=== PATIENT | male | born 1930 | race Caucasian/White ===

== ENCOUNTER → 2016-09-15 | Outpatient (CLI) | payer MEDICARE ==
[2016-09-15 11:56] LABS: Anion Gap 10 mmol/L; Blood Urea Nitrogen 18 mg/dL (9-20); Calcium 9.3 mg/dL (8.4-10.2); Carbon Dioxide 25 mmol/L (22-30); Chloride 107 mmol/L (98-107); Glucose 91 mg/dL (74-99); Non-African American GFR(MDRD) >60 (>60 ml/min/1.73 sqM); Potassium 4.5 mmol/L (3.5-5.1); Sodium 142 mmol/L (137-145)
== END | disposition home or self-care (01) ==
LOC: LABWHC1 11:11
PROVIDERS: ATTEND Internal Medicine Cardiovascular Disease
DX: I10 Essential (primary) hypertension (principal)
CPT/HCPCS: 36415; 80048

== ENCOUNTER → 2016-12-15 | Outpatient (CLI) | payer MEDICARE ==
--- NOTE | 2016-12-15 17:20 | US ---
EXAMINATION TYPE: US carotid duplex BILAT DATE OF EXAM: 12/15/2016 COMPARISON: US CLINICAL HISTORY: I77.1 Stenosis. Stenosis, pt has no complaints at this time EXAM MEASUREMENTS: RIGHT: Peak Systolic Velocity (PSV) cm/sec ----- Right CCA: 95.2 ----- Right ICA: 117.3 ----- Right ECA: 113.4 ICA/CCA ratio: 1.2 RIGHT: End Diastole cm/sec ----- Right CCA: 20.4 ----- Right ICA: 20.2 ----- Right ECA: 11.1 LEFT: Peak Systolic Velocity (PSV) cm/sec ----- Left CCA: 118.5 ----- Left ICA: 114.7 ----- Left ECA: 105.6 ICA/CCA ratio: 1.0 LEFT: End Diastole cm/sec ----- Left CCA: 20.6 ----- Left ICA: 31.8 ----- Left ECA: 12.4 VERTEBRALS (direction of flow): Right Vertebral: Antegrade Left Vertebral: Antegrade No significant stenosis seen IMPRESSION: I DO NOT SEE EVIDENCE OF A HEMODYNAMICALLY SIGNIFICANT STENOSIS IN EITHER CAROTID SYSTEM. Criteria for Assigning % of Stenosis / Diameter reduction (Estimation based on the indirect measurements of the internal carotid artery velocities (ICA PSV). 1. Normal (no stenosis)=ICA PSV < 125 cm/s: ratio < 2.0: ICA EDV<40 cm/s. 2. Less than 50% stenosis=ICA PSV < 125 cm/s: ratio < 2.0: ICA EDV<40 cm/s. 3. 50 to 69% stenosis=ICA PSV of 125 to 230 cm/s: ration 2.0 ? 4.0: ICA EDV 40-100 cm/s. 4. Greater than 70% stenosis to near occlusion= ICA PSV > 230 cm/s: ratio > 4.0: ICA EDV > 100 cm/s. 5. Near occlusion= ICA PSV velocities may be low or undetectable: variable ratio and ICA EDV. 6. Total occlusion=unable to detect flow.
== END | disposition home or self-care (01) ==
LOC: RADUSWWP 16:47
PROVIDERS: ATTEND Family Medicine
DX: I77.1 Stricture of artery (principal)
CPT/HCPCS: 93880

== ENCOUNTER 2017-02-24 21:54 | Emergency (ER) | payer MEDICARE ==
[2017-02-24 22:43] LABS: Basophils % (A) 0 %; CH 30.7; CHCM 34.4; Eosinophils # (A) 0.1 k/uL (0-0.7); Eosinophils % (A) 1 %; HDW 2.83; HGB 8.8 gm/dL (13.0-17.5); Luc # (Auto) 0.34; Luc % (Auto) 3; Lymphocytes % (A) 9 %; MCH 29.2 pg (25.0-35.0); MCHC 32.6 g/dL (31.0-37.0); MCV 89.6 fL (80.0-100.0); Mean Platelet Volume 8.9; Monocytes # (A) 0.8 k/uL (0-1.0); Monocytes % (A) 7 %; Neutrophils % (A) 81 %; RBC 3.01 m/uL (4.30-5.90); RDW 14.5 % (11.5-15.5); WBC 11.2 k/uL (3.8-10.6); WBC (Perox) 11.08
[2017-02-24 22:52] LABS: INR 1.5 (<1.2); Prothrombin Time 14.7 sec (9.0-12.0)
[2017-02-24 23:02] LABS: Creatine Kinase 34 U/L (55-170)
[2017-02-24 23:05] LABS: ALT 29 U/L (21-72); AST 18 U/L (17-59); Alkaline Phosphatase 73 U/L (38-126); Anion Gap 10 mmol/L; Blood Urea Nitrogen 26 mg/dL (9-20); Calcium 8.4 mg/dL (8.4-10.2); Carbon Dioxide 23 mmol/L (22-30); Chloride 99 mmol/L (98-107); Glucose 106 mg/dL (74-99); Magnesium 2.3 mg/dL (1.6-2.3); Non-African American GFR(MDRD) 52 (>60 ml/min/1.73 sqM); Potassium 4.3 mmol/L (3.5-5.1); Sodium 132 mmol/L (137-145); Total Bilirubin 0.6 mg/dL (0.2-1.3); Total Protein 5.9 g/dL (6.3-8.2)
[2017-02-24] MEDS ORDERED: SODIUM CHLORIDE 0.9% 500 ML IV STA (23:09)
[2017-02-24] MEDS ORDERED: ONDANSETRON 4 MG/2 ML VIAL IVP STA (23:10)
[2017-02-24 23:15] LABS: Creatine Kinase MB 0.3 ng/mL (0.0-2.4); Troponin I <0.012 ng/mL (0.000-0.034)
--- NOTE | 2017-02-25 00:03 | XR ---
EXAM: XR Chest, 1 View CLINICAL HISTORY: Reason: dysrhythmia TECHNIQUE: Frontal view of the chest. COMPARISON: 07/06/2016 FINDINGS: Lungs: No significant interval change. No consolidation. Pleural space: Unremarkable. No pneumothorax. Heart: Unremarkable. No cardiomegaly. Mediastinum: Unremarkable. Bones/joints: Mild degenerative changes. Tubes, lines and devices: Left-sided chest wall pacemaker is again seen stable pacemaker leads. IMPRESSION: No active cardiopulmonary disease. No significant interval change.
[2017-02-25 01:05] VITALS: RESP 16
[2017-02-25 01:10] LABS: Appearance,Urine Clear (Clear); Bilirubin,Urine Negative (Negative); Glucose,Urine (UA) Negative (Negative); Ketones,Urine Trace (Negative); Leukocyte Esterase,Urine Negative (Negative); Nitrite,Urine Negative (Negative); PH, Urine 6.5 (5.0-8.0); Protein,Urine Negative (Negative); Specific Gravity,Urine 1.015 (1.001-1.035); UA Billing (MACRO vs. MICRO) CHEM; Urobilinogen,Urine <2.0 mg/dL (<2.0)
--- NOTE | 2017-02-25 01:48 | ED ---
Arrhythmia/Palpitations HPI - General Chief Complaint: Arrhythmia/Palpitations Stated Complaint: Rapid Heartbeat Time Seen by Provider: 02/24/17 22:07 Source: patient Mode of arrival: wheelchair Limitations: no limitations - Related Data Home Medications Medication Instructions Recorded Confirmed Alfuzosin HCl [Uroxatral] 10 tab PO HS 03/05/14 02/24/17 Digoxin [Lanoxin] 125 mcg PO HS 03/05/14 02/24/17 Carvedilol [Coreg] 3.125 mg PO BID 07/06/16 02/24/17 Isosorbide Mononitrate ER [Imdur] 60 mg PO BID 07/06/16 02/24/17 Levothyroxine Sodium [Synthroid] 88 mcg PO DAILY 07/06/16 02/24/17 Meclizine [Antivert] 12.5 mg PO Q8HR PRN 07/06/16 02/24/17 Meloxicam [Mobic] 7.5 mg PO HS 07/06/16 02/24/17 Rivaroxaban [Xarelto] 15 mg PO HS 07/06/16 02/24/17 Furosemide [Lasix] 10 mg PO DAILY 07/08/16 02/24/17 Ferrous Sulfate [Feosol] 325 mg PO DAILY 02/24/17 02/24/17 Losartan [Cozaar] 25 mg PO DAILY 02/24/17 02/24/17 Nitroglycerin Sl Tabs [Nitrostat] 0.4 mg SUBLINGUAL Q5M PRN 02/24/17 02/24/17 Tiotropium Br/Olodaterol HCl 2 puff INHALATION RT-DAILY 02/24/17 02/24/17 [Stiolto Respimat Inhal [place]] rOPINIRole HCL [Requip] 3 mg PO HS 02/24/17 02/24/17 Allergies Allergy/AdvReac Type Severity Reaction Status Date / Time ranolazine [From Ranexa] Allergy Severe Seizures Verified 02/24/17 22:39 Review of Systems ROS Statement: Those systems with pertinent positive or pertinent negative responses have been documented in the HPI. ROS Other: All systems not noted in ROS Statement are negative. Past Medical History Past Medical History: Atrial Fibrillation, Coronary Artery Disease (CAD), Chest Pain / Angina, Heart Failure, GERD/Reflux, Thyroid Disorder Additional Past Medical History / Comment(s): 10/24/[address] [facility] ER via EMS with c/o difficulty talking and facial droop. He also had generalized shaking. Other HX: Pt had intestinal illness last week, AICD (medtronic placed at [facility] in 2008), cardiomyopathy, gastritis, paraesophageal hiatal hernia ,left knee pain with scheduled injections for pain History of Any Multi-Drug Resistant Organisms: None Reported Past Surgical History: AICD, Orthopedic Surgery, Tonsillectomy Additional Past Surgical History / Comment(s): AICD placed twice both at [facility]- in 1999 and 2008, PTCA November of 1999, hydrocelectomy, EGDs with last one being EGD with Bx along antrum which pt stated was benign, colonoscopy with polypectomy, bilateral cataract removal; left knee sx "shaved cartilage" Past Anesthesia/Blood Transfusion Reactions: No Reported Reaction Type of Cardiac Device: AICD Device Placement Date:: 2008 Past Psychological History: No Psychological Hx Reported Smoking Status: Former smoker Past Alcohol Use History: None Reported Past Drug Use History: None Reported - Past Family History Mother History Unknown: Yes Family Medical History: Blood Disorder, Coronary Artery Disease (CAD) Additional Family Medical History / Comment(s): Von Willebrand Father History Unknown: Yes Family Medical History: Coronary Artery Disease (CAD) Additional Family Medical History / Comment(s): Father was healthy General Exam Limitations: no limitations Course Vital Signs 02/24/17 02/24/17 02/24/17 21:58 22:30 23:36 Temperature 100.4 F H Pulse Rate 67 70 64 Respiratory 18 16 16 Rate Blood Pressure 99/52 105/67 100/55 O2 Sat by Pulse 93 L 93 L 95 Oximetry 02/25/17 02/25/17 00:06 01:02 Temperature Pulse Rate 64 651 H Respiratory 18 16 Rate Blood Pressure 105/59 99/57 O2 Sat by Pulse 96 95 Oximetry Medical Decision Making - Lab Data Result diagrams: 02/24/17 22:30 02/24/17 22:30 Lab Results 02/24/17 02/24/17 02/24/17 Range/Units 22:30 22:30 22:30 WBC 11.2 H (3.8-10.6) k/uL RBC 3.01 L (4.30-5.90) m/uL Hgb 8.8 L (13.0-17.5) gm/dL Hct 27.0 L (39.0-53.0) % MCV 89.6 (80.0-100.0) fL MCH 29.2 (25.0-35.0) pg MCHC 32.6 (31.0-37.0) g/dL RDW 14.5 (11.5-15.5) % Plt Count 199 (150-450) k/uL Neutrophils % 81 % Lymphocytes % 9 % Monocytes % 7 % Eosinophils % 1 % Basophils % 0 % Neutrophils # 9.0 H (1.3-7.7) k/uL Lymphocytes # 1.0 (1.0-4.8) k/uL Monocytes # 0.8 (0-1.0) k/uL Eosinophils # 0.1 (0-0.7) k/uL Basophils # 0.0 (0-0.2) k/uL PT (9.0-12.0) sec INR (<1.2) APTT (22.0-30.0) sec Sodium 132 L (137-145) mmol/L Potassium 4.3 (3.5-5.1) mmol/L Chloride 99 (98-107) mmol/L Carbon Dioxide 23 (22-30) mmol/L Anion Gap 10 mmol/L BUN 26 H (9-20) mg/dL Creatinine 1.30 H (0.66-1.25) mg/dL Est GFR (MDRD) Af Amer >60 (>60 ml/min/1.73 sqM) Est GFR (MDRD) Non-Af 52 (>60 ml/min/1.73 sqM) Glucose 106 H (74-99) mg/dL Calcium 8.4 (8.4-10.2) mg/dL Magnesium 2.3 (1.6-2.3) mg/dL Total Bilirubin 0.6 (0.2-1.3) mg/dL AST 18 (17-59) U/L ALT 29 (21-72) U/L Alkaline Phosphatase 73 (38-126) U/L Total Creatine Kinase 34 L (55-170) U/L CK-MB (CK-2) 0.3 (0.0-2.4) ng/mL CK-MB (CK-2) Rel Index 0.9 Troponin I <0.012 (0.000-0.034) ng/mL Total Protein 5.9 L (6.3-8.2) g/dL Albumin 3.5 (3.5-5.0) g/dL Urine Color Urine Appearance (Clear) Urine pH (5.0-8.0) Ur Specific [place] (1.001-1.035) Urine Protein (Negative) Urine Glucose (UA) (Negative) Urine Ketones (Negative) Urine Blood (Negative) Urine Nitrite (Negative) Urine Bilirubin (Negative) Urine Urobilinogen (<2.0) mg/dL Ur Leukocyte Esterase (Negative) 02/24/17 02/25/17 Range/Units 22:30 00:55 WBC (3.8-10.6) k/uL RBC (4.30-5.90) m/uL Hgb (13.0-17.5) gm/dL Hct (39.0-53.0) % MCV (80.0-100.0) fL MCH (25.0-35.0) pg MCHC (31.0-37.0) g/dL RDW (11.5-15.5) % Plt Count (150-450) k/uL Neutrophils % % Lymphocytes % % Monocytes % % Eosinophils % % Basophils % % Neutrophils # (1.3-7.7) k/uL Lymphocytes # (1.0-4.8) k/uL Monocytes # (0-1.0) k/uL Eosinophils # (0-0.7) k/uL Basophils # (0-0.2) k/uL PT 14.7 H (9.0-12.0) sec INR 1.5 H (<1.2) APTT 38.0 H (22.0-30.0) sec Sodium (137-145) mmol/L Potassium (3.5-5.1) mmol/L Chloride (98-107) mmol/L Carbon Dioxide (22-30) mmol/L Anion Gap mmol/L BUN (9-20) mg/dL Creatinine (0.66-1.25) mg/dL Est GFR (MDRD) Af Amer (>60 ml/min/1.73 sqM) Est GFR (MDRD) Non-Af (>60 ml/min/1.73 sqM) Glucose (74-99) mg/dL Calcium (8.4-10.2) mg/dL Magnesium (1.6-2.3) mg/dL Total Bilirubin (0.2-1.3) mg/dL AST (17-59) U/L ALT (21-72) U/L Alkaline Phosphatase (38-126) U/L Total Creatine Kinase (55-170) U/L CK-MB (CK-2) (0.0-2.4) ng/mL CK-MB (CK-2) Rel Index Troponin I (0.000-0.034) ng/mL Total Protein (6.3-8.2) g/dL Albumin (3.5-5.0) g/dL Urine Color Yellow Urine Appearance Clear (Clear) Urine pH 6.5 (5.0-8.0) Ur Specific [place] 1.015 (1.001-1.035) Urine Protein Negative (Negative) Urine Glucose (UA) Negative (Negative) Urine Ketones Trace H (Negative) Urine Blood Negative (Negative) Urine Nitrite Negative (Negative) Urine Bilirubin Negative (Negative) Urine Urobilinogen <2.0 (<2.0) mg/dL Ur Leukocyte Esterase Negative (Negative) Disposition Clinical Impression: Afib, Dehydration Disposition: HOME SELF-CARE Condition: Fair Instructions: Palpitations (ED), Dehydration (ED) Referrals: Hernán Bansal MD [Primary Care Provider] - 1-2 days
[2017-02-25 02:22] VITALS: BP 119/55; PULSE 62; TEMP 98.6
--- NOTE | 2017-02-27 08:47 | CDI ---
Documentation Clarification OP Dear Dr. Jey Wolff Please do addendum to ED report for missing HPI and Physical examination. Thank you, Adam Benton Phytopathology Teacher If you have any questions, please contact [place] [employer] Member at [phone] He will not let me open the chart MTDD
== END 2017-02-25 02:04 | disposition home or self-care (01) ==
LOC: EC 21:54
DX: I48.91 Unspecified atrial fibrillation (principal); E86.0 Dehydration; I50.9 Heart failure, unspecified; I25.10 Atherosclerotic heart disease of native coronary artery without angina pectoris; E07.9 Disorder of thyroid, unspecified; Z87.891 Personal history of nicotine dependence; Z79.1 Long term (current) use of non-steroidal anti-inflammatories (NSAID); Z79.01 Long term (current) use of anticoagulants; Z79.899 Other long term (current) drug therapy; Z88.8 Allergy status to other drugs, medicaments and biological substances; Z86.79 Personal history of other diseases of the circulatory system; Z82.49 Family history of ischemic heart disease and other diseases of the circulatory system; Z87.39 Personal history of other diseases of the musculoskeletal system and connective tissue; Z95.810 Presence of automatic (implantable) cardiac defibrillator
CPT/HCPCS: 51798; 36415; 93005; 80053; 82550; 82553; 83735; 84484; 85025; 85610; 85730; 81003; 71010; 99285; 96374; 96361; J2405

== ENCOUNTER 2017-03-30 15:24 | Inpatient (IN) | payer MEDICARE ==
[2017-03-30] MEDS ORDERED: MECLIZINE 12.5 MG TAB PO PRN (16:34)
[2017-03-30] MEDS ORDERED: NITROGLYCERIN SL TABS 0.4 MG TAB SUBLINGUAL PRN (16:34)
--- NOTE | 2017-03-30 17:02 | XR ---
EXAMINATION TYPE: XR chest 2V DATE OF EXAM: 03/30/2017 COMPARISON: 02/24/2017 HISTORY: Dysrhythmia. Syncope. TECHNIQUE: Frontal and lateral views of the chest are obtained. FINDINGS: Heart appears enlarged. There is no heart failure. Lungs are clear of infiltrate. There is left axillary pacemaker with the lead tips in the right ventricle. There are chest leads. Bony thora x is intact. IMPRESSION: No active cardiopulmonary disease. No change.
--- NOTE | 2017-03-30 17:17 | CT ---
EXAMINATION TYPE: CT brain wo con DATE OF EXAM: 03/30/2017 COMPARISON: 10/24/2014 HISTORY: Dizziness and syncopal episodes CT DLP: 1029.9 mGycm Automated exposure control for dose reduction was used. FINDINGS: There is some cerebral cortical atrophy. There is no mass effect nor midline shift. There is no sign of intracranial hemorrhage. The calvarium is intact. IMPRESSION: MILD ATROPHY. NO ACUTE INTRACRANIAL ABNORMALITY. NO CHANGE.
[2017-03-30 17:34] LABS: Basophils % (A) 0 %; CH 27.2; CHCM 30.8; Eosinophils # (A) 0.1 k/uL (0-0.7); Eosinophils % (A) 1 %; HDW 4.39; Hypochromasia Marked; Luc # (Auto) 0.28; Luc % (Auto) 3; Lymphocytes # (A) 1.4 k/uL (1.0-4.8); Lymphocytes % (A) 14 %; MCH 27.7 pg (25.0-35.0); MCHC 31.4 g/dL (31.0-37.0); MCV 88.4 fL (80.0-100.0); Mean Platelet Volume 8.4; Monocytes # (A) 0.7 k/uL (0-1.0); Monocytes % (A) 7 %; Neutrophils # (A) 7.6 k/uL (1.3-7.7); Neutrophils % (A) 75 %; Poikilocytosis Moderate; RBC 1.87 m/uL (4.30-5.90); RDW 14.8 % (11.5-15.5); WBC (Perox) 10.37
[2017-03-30 17:42] LABS: Anion Gap 11 mmol/L; Blood Urea Nitrogen 23 mg/dL (9-20); Calcium 8.9 mg/dL (8.4-10.2); Carbon Dioxide 22 mmol/L (22-30); Chloride 104 mmol/L (98-107); Glucose 93 mg/dL (74-99); Non-African American GFR(MDRD) 59 (>60 ml/min/1.73 sqM); Potassium 4.3 mmol/L (3.5-5.1); Sodium 137 mmol/L (137-145)
[2017-03-30 17:43] LABS: HGB 5.2 gm/dL (13.0-17.5)
[2017-03-30 17:44] LABS: HCT 16.5 % (39.0-53.0)
[2017-03-30] MEDS: CARVEDILOL 3.125 MG TAB PO SCH (18:00)
--- NOTE | 2017-03-30 18:59 | CT ---
EXAMINATION TYPE: CT abdomen pelvis wo con DATE OF EXAM: 03/30/2017 COMPARISON: 02/14/2014 HISTORY: Low hemoglobin. CT DLP: 303.7 mGycm Automated exposure control for dose reduction was used. TECHNIQUE: Helical acquisition of images was performed from the lung bases through the pelvis. FINDINGS: Lung bases are clear of consolidation. Heart is enlarged. There is no pleural effusion. There is mild linear density at the lung bases consistent with minimal scarring and atelectasis. There is a hiatal hernia. Liver shows no focal defect. There is no evidence of a splenic mass. There is no sign of pancreatic m ass. Gallbladder somewhat contracted. There is no adrenal mass. Kidneys show no hydronephrosis. There is exophytic 2.5 cm cyst on the lower pole left kidney. There is no retroperitoneal adenopathy. There is no ascites. Bladder distends smoo thly. There is no sign of a pelvic mass. I see no intestinal wall thickening. There are no dilated lo ops. There are spondylotic changes in the lumbar spine with relative spinal stenosis at L4-5. There i s a 1 mm calcification in the interpolar right kidney. There is a 1 mm calcification in the upper erna e right kidney. IMPRESSION: MULTILEVEL LUMBAR SPONDYLOSIS. THERE IS EVIDENCE FOR SOME SPINAL STENOSIS AT L4-5. NONOBSTRUCTING SMA LL RIGHT RENAL CALCULI. HIATAL HERNIA. NO ADVERSE CHANGE COMPARED TO OLD EXAM.
[2017-03-30] MEDS ORDERED: RIVAROXABAN 15 MG TAB PO SCH (21:00)
[2017-03-30] MEDS ORDERED: MELOXICAM 7.5 MG TAB PO SCH (21:00)
[2017-03-30] MEDS: HYDROcodone/APAP 5-325MG 1 EACH TAB PO SCH (21:15)
[2017-03-30] MEDS: DIGOXIN 125 MCG TAB PO SCH (21:31)
[2017-03-30] MEDS: TAMSULOSIN 0.4 MG CAP.ER.24H PO SCH (21:31)
[2017-03-30] MEDS: ISOSORBIDE MONONITRATE ER 60 MG TAB.ER.24H PO SCH (21:31)
--- NOTE | 2017-03-30 22:28 | P.CNNES ---
History of Present Illness Consult date: 03/30/17 Reason for Consult: This patient is being evaluated for acute syncope and collapse. History of Present Illness: This patient is a 86-year-old right-handed white male who was admitted to [facility] after having an acute syncopal episode at home. Patient states he was up this morning and was outdoors walking towards his garden tractor when he apparently felt very lightheaded and collapsed to the ground. His was very concerned and called EMS. The patient contacted his primary care physician Dr. Horne who advised him to go to the hospital. The patient was seen and was found to have evidence of severe anemia. His hemoglobin on admission was 5.2. He is being transfused packed red blood cells this evening. Patient states that he has been feeling weak for the past 2-3 weeks at home. He has been unable to perform at the same level as he did a month earlier. He states he used to walk about 100 yards but now today could only walk about 20 feet without feeling fatigued and tired. Patient was sent for a computed tomography scan of the brain which revealed mild atrophy with no acute stroke or hemorrhage. Subsequent admitted to the hospital. He states that an episode occurred about 4 days ago in his bathroom when he once again felt very weak and lightheaded. Apparently had a near fall at the shower area. The episode today however he did collapse due to generalized weakness. Patient did not have any seizure-like activity associated with this fall. He does have a history of myocardial infarction with placement of a defibrillator. He did have an episode of angina in June of last year. He does have history of atrial fibrillation and apparently has been taking Xarelto as his primary anticoagulant. The patient denies any recent episodes of collapse other than the episode that occurred a few days ago in the bathroom. He denies any headache symptoms. He has now been admitted and neurology has been consulted for further evaluation and recommendations. Review of Systems Constitutional: Denies chills, Denies fever Eyes: denies blurred vision, denies pain Ears, nose, mouth and throat: Denies headache, Denies sore throat Cardiovascular: Denies chest pain, Denies shortness of breath Respiratory: Denies cough Gastrointestinal: Denies as per HPI, Denies abdominal pain, Denies diarrhea, Denies nausea, Denies vomiting Musculoskeletal: Denies myalgias Integumentary: Denies pruritus, Denies rash Neurological: Reports change in mentation, Reports syncope, Reports visual changes, Denies numbness, Denies weakness Psychiatric: Denies anxiety, Denies depression Endocrine: Denies fatigue, Denies weight change Past Medical History Past Medical History: Atrial Fibrillation, Coronary Artery Disease (CAD), Chest Pain / Angina, Heart Failure, GERD/Reflux, Thyroid Disorder Additional Past Medical History / Comment(s): C/O LT SHOUDER PAIN AND DECREASE ROM. AICD (medtronic placed at [facility] in 2008), cardiomyopathy, gastritis, paraesophageal hiatal hernia,left knee pain with scheduled injections for pain, FALLS. HIATAL HERNIA,GLAUCOMA, MACULAR DEGENERATION, URINARY INCONT. EPISODIC BLURRY VISION. WAITING ON DELIVERY OF CPAP MACHINE. History of Any Multi-Drug Resistant Organisms: None Reported Past Surgical History: AICD, Heart Catheterization, Orthopedic Surgery, Tonsillectomy Additional Past Surgical History / Comment(s): AICD placed twice both at [facility]- in 1999 and 2008, PTCA November of 1999, hydrocelectomy, EGDs with last one benign EGD with Bx along antrum which pt stated was benign, colonoscopy with polypectomy, bilateral cataract removal; left knee sx "shaved cartilage", stress test, haert cath -no stents. Past Anesthesia/Blood Transfusion Reactions: No Reported Reaction Type of Cardiac Device: AICD Device Placement Date:: 2008 Smoking Status: Former smoker - Past Family History Mother History Unknown: Yes Family Medical History: Blood Disorder, Coronary Artery Disease (CAD) Additional Family Medical History / Comment(s): Von Willebrand Daughter(s) Family Medical History: Cancer Additional Family Medical History / Comment(s): leukemia Father History Unknown: Yes Family Medical History: Coronary Artery Disease (CAD) Additional Family Medical History / Comment(s): Father was healthy Medications and Allergies Home Medications Medication Instructions Recorded Confirmed Type Alfuzosin HCl [Uroxatral] 10 tab PO HS 03/05/14 03/30/17 History Digoxin [Lanoxin] 125 mcg PO HS 03/05/14 03/30/17 History Carvedilol [Coreg] 3.125 mg PO BID 07/06/16 03/30/17 History Isosorbide Mononitrate ER [Imdur] 60 mg PO BID 07/06/16 03/30/17 History Levothyroxine Sodium [Synthroid] 88 mcg PO DAILY 07/06/16 03/30/17 History Meclizine [Antivert] 12.5 mg PO Q8HR PRN 07/06/16 03/30/17 History Meloxicam [Mobic] 7.5 mg PO HS 07/06/16 03/30/17 History Rivaroxaban [Xarelto] 15 mg PO HS 07/06/16 03/30/17 History Furosemide [Lasix] 10 mg PO DAILY 07/08/16 03/30/17 History Ferrous Sulfate [Feosol] 325 mg PO DAILY 02/24/17 03/30/17 History Losartan [Cozaar] 25 mg PO HS 02/24/17 03/30/17 History Nitroglycerin Sl Tabs [Nitrostat] 0.4 mg SUBLINGUAL Q5M PRN 02/24/17 03/30/17 History Tiotropium Br/Olodaterol HCl 2 puff INHALATION RT-DAILY 02/24/17 03/30/17 History [Stiolto Respimat Inhal [place]] rOPINIRole HCL [Requip] 3 mg PO HS 02/24/17 03/30/17 History HYDROcodone/APAP 5-325MG [[place] 5] 1 tab PO HS 03/30/17 03/30/17 History Allergies Allergy/AdvReac Type Severity Reaction Status Date / Time ranolazine [From Ranexa] Allergy Severe Seizures Verified 03/30/17 16:18 Physical Examination - Vital Signs Vital Signs: Vital Signs Temp Pulse Pulse Resp BP BP Pulse Ox 03/30/17 21:01 97.3 F L 72 18 109/49 99 03/30/17 20:31 97.9 F 71 18 114/51 97 03/30/17 20:21 97.6 F 79 18 116/52 98 03/30/17 20:15 97.6 F 79 18 116/52 98 03/30/17 16:17 97.1 F L 70 18 110/51 100 Intake and Output 03/30/17 03/30/17 03/30/17 06:59 14:59 22:59 Intake Total 0 Balance 0 Intake: Blood Product 0 Rc As-1 Unit 0 [id number] Other: Voiding Method Toilet Weight 66.9 kg Patient Weight 03/31/17 06:59 Weight 66.9 kg - Constitutional General appearance: average body habitus, cooperative - EENT EENT: PERRL, mucous membranes moist - Respiratory Respiratory: lungs clear, normal breath sounds - Cardiovascular Cardiovascular: regular rate, normal S1, normal S2 Extremities: no peripheral edema bilaterally - Gastrointestinal Gastrointestinal: normoactive bowel sounds - Integumentary Integumentary: normal - Neurologic Cranial nerve examination: PERRL, EOMI, VFF, V1/V2/V3 grossly intact, face symmetric, tongue midline, intact gag reflex, intact corneal reflex, normal palatal elevation Speech examination: intact Sensorimotor examination: intact Detailed motor examination: grossly full strength in all extremities Motor examination - right side: 4/5: biceps, triceps, wrist flexion, wrist extension, roto mixer operator, hip flexors, knee extensors, dorsiflexion, toe extension (EHL) , plantarflexion Motor examination - left side: 4/5: biceps, triceps, wrist flexion, wrist extension, roto mixer operator, hip flexors, knee extensors, dorsiflexion, toe extension (EHL) , plantarflexion Detailed sensory examination: intact Reflex and gait examination: intact Reflexes: 1+: ankle, bicep, knee, tricep - Musculoskeletal Musculoskeletal: no pain - Psychiatric Psychiatric: mood/affect appropriate, cooperative Results - Laboratory Findings CBC and BMP: 03/30/17 17:15 03/30/17 17:15 Abnormal Lab Findings: Abnormal Labs 03/30/17 03/30/17 03/30/17 17:15 17:15 17:21 RBC 1.87 L Hgb 5.2 L* D Hct 16.5 L* BUN 23 H Crossmatch See Detail Assessment and Plan (1) Syncope and collapse Status: Acute Code(s): R55 - SYNCOPE AND COLLAPSE (2) AICD (automatic cardioverter/defibrillator) present Status: Acute Code(s): Z95.810 - PRESENCE OF AUTOMATIC (IMPLANTABLE) CARDIAC DEFIBRILLATOR (3) Cardiomyopathy Status: Acute Code(s): I42.9 - CARDIOMYOPATHY, UNSPECIFIED (4) TIA (transient ischemic attack) Status: Acute Code(s): G45.9 - TRANSIENT CEREBRAL ISCHEMIC ATTACK, UNSPECIFIED (5) Tremor Status: Acute Code(s): R25.1 - TREMOR, UNSPECIFIED Plan: This patient is a 86-year-old gentleman who was admitted to hospital today with episode of syncope and collapse. He was outdoors walking to his garden tractor when he apparently became lightheaded and collapsed. He was unresponsive only for a few seconds. He felt very weak and tired. He was brought into the emergency room where he was further evaluated. He had evidence of severe anemia. He was admitted to hospital for further management. His hemoglobin on admission was 5.2. He is being given blood transfusion at this time. The patient's neurological examination is nonfocal. This patient has suffered an acute vasovagal syncope secondary to severe anemia. His computed tomography scan of the brain failed to reveal any acute changes. He does have history of atrial fibrillation and is currently on Xarelto. He should be monitored for acute GI bleeding. We will continue close neurological follow-up for this patient. Would recommend a routine EEG to rule out seizure disorder. His overall prognosis at this time remains very guarded. Time with Patient: Greater than 30
[2017-03-30] MEDS: LOSARTAN 25 MG TAB PO SCH (23:50)
[2017-03-31 02:41] LABS: Basophils % (A) 0 %; CHCM 32.2; Eosinophils # (A) 0.1 k/uL (0-0.7); Eosinophils % (A) 1 %; HCT 20.7 % (39.0-53.0); HDW 4.35; HGB 6.8 gm/dL (13.0-17.5); Hypochromasia Moderate; Luc # (Auto) 0.31; Luc % (Auto) 3; Lymphocytes # (A) 1.4 k/uL (1.0-4.8); Lymphocytes % (A) 15 %; MCH 28.5 pg (25.0-35.0); MCHC 32.8 g/dL (31.0-37.0); MCV 86.9 fL (80.0-100.0); Mean Platelet Volume 8.7; Monocytes # (A) 0.6 k/uL (0-1.0); Monocytes % (A) 6 %; Neutrophils % (A) 74 %; Poikilocytosis Moderate; RBC 2.39 m/uL (4.30-5.90); RDW 14.6 % (11.5-15.5); WBC 9.4 k/uL (3.8-10.6); WBC (Perox) 9.79
[2017-03-31] MEDS: CARVEDILOL 3.125 MG TAB PO SCH ×2 (06:51→17:09)
[2017-03-31] MEDS: LEVOTHYROXINE 88 MCG TAB PO SCH (06:51)
[2017-03-31] MEDS ORDERED: NON-FORMULARY DRUG (Tiotropium Br/Olodaterol Hcl [Stiolto Respimat Inhal Spray] 2 PUFF) INHALATION SCH (08:00)
[2017-03-31] MEDS: ISOSORBIDE MONONITRATE ER 60 MG TAB.ER.24H PO SCH ×2 (08:11→20:30)
[2017-03-31] MEDS: FUROSEMIDE 20 MG TAB PO SCH (08:11)
[2017-03-31] MEDS: FERROUS SULFATE 325 MG TAB PO SCH (08:11)
--- NOTE | 2017-03-31 08:39 | P.CRDCN ---
History of Present Illness Consult date: 03/31/17 Consult reason: sycope History of present illness: 86-year-old gentleman with history of nonischemic cardiomyopathy status post AICD hypertension dyslipidemia and paroxysmal atrial fibrillation is admitted to hospital with dizziness and near syncope. His symptoms came on gradually over a period of several days. But associated with fatigue and exertional tightness. He had near syncopal event. There is no history of focal neurological deficit. On admission his hemoglobin was very low and he had received blood transfusion. His hemoglobin was 5.4. I believe his symptoms are related to it. Patient has dark-colored stools but he takes iron. Patient has chronic anemia but this is an exacerbation affect. Patient is on long-term anticoagulation which I'm going to stop. He certainly needs evaluation for the source of his blood loss. I will obtain a 2-D echo to document his LV function. He does not require any further cardiac workup at this time. Patient had an echo in June of last year that revealed normal LV function. He had a cardiac catheterization in June that revealed mild coronary artery disease very similar to the cath in 2009. Review of Systems Constitutional: Denies chills. Denies fever. Eyes: Denies blurred vision. Denies pain. Ears, nose, mouth and throat: Denies headache. Denies sore throat. Cardiovascular: Denies chest pain. Denies shortness of breath. Near syncope Respiratory: Denies cough. Gastrointestinal: Denies abdominal pain. Denies diarrhea. Denies nausea. Denies vomiting. Musculoskeletal: Denies myalgias. Integumentary: Denies pruritus. Denies rash. Neurological: Denies numbness. Denies weakness. Psychiatric: Denies anxiety. Denies depression. Endocrine: Denies fatigue. Denies weight change. Genitourinary: Denies burning, hematuria, frequency of urination. Hematological: No anemia or excess bleeding. Past Medical History Past Medical History: Atrial Fibrillation, Coronary Artery Disease (CAD), Chest Pain / Angina, Heart Failure, GERD/Reflux, Thyroid Disorder Additional Past Medical History / Comment(s): C/O LT SHOUDER PAIN AND DECREASE ROM. AICD (medtronic placed at [facility] in 2008), cardiomyopathy, gastritis, paraesophageal hiatal hernia,left knee pain with scheduled injections for pain, FALLS. HIATAL HERNIA,GLAUCOMA, MACULAR DEGENERATION, URINARY INCONT. EPISODIC BLURRY VISION. WAITING ON DELIVERY OF CPAP MACHINE. History of Any Multi-Drug Resistant Organisms: None Reported Past Surgical History: AICD, Heart Catheterization, Orthopedic Surgery, Tonsillectomy Additional Past Surgical History / Comment(s): AICD placed twice both at [facility]- in 1999 and 2008, PTCA November of 1999, hydrocelectomy, EGDs with last one benign EGD with Bx along antrum which pt stated was benign, colonoscopy with polypectomy, bilateral cataract removal; left knee sx "shaved cartilage", stress test, haert cath -no stents. Past Anesthesia/Blood Transfusion Reactions: No Reported Reaction Type of Cardiac Device: AICD Device Placement Date:: 2008 Smoking Status: Former smoker - Past Family History Mother History Unknown: Yes Family Medical History: Blood Disorder, Coronary Artery Disease (CAD) Additional Family Medical History / Comment(s): Von Willebrand Daughter(s) Family Medical History: Cancer Additional Family Medical History / Comment(s): leukemia Father History Unknown: Yes Family Medical History: Coronary Artery Disease (CAD) Additional Family Medical History / Comment(s): Father was healthy Medications and Allergies Home Medications Medication Instructions Recorded Confirmed Type Alfuzosin HCl [Uroxatral] 10 tab PO HS 03/05/14 03/30/17 History Digoxin [Lanoxin] 125 mcg PO HS 03/05/14 03/30/17 History Carvedilol [Coreg] 3.125 mg PO BID 07/06/16 03/30/17 History Isosorbide Mononitrate ER [Imdur] 60 mg PO BID 07/06/16 03/30/17 History Levothyroxine Sodium [Synthroid] 88 mcg PO DAILY 07/06/16 03/30/17 History Meclizine [Antivert] 12.5 mg PO Q8HR PRN 07/06/16 03/30/17 History Meloxicam [Mobic] 7.5 mg PO HS 07/06/16 03/30/17 History Rivaroxaban [Xarelto] 15 mg PO HS 07/06/16 03/30/17 History Furosemide [Lasix] 10 mg PO DAILY 07/08/16 03/30/17 History Ferrous Sulfate [Feosol] 325 mg PO DAILY 02/24/17 03/30/17 History Losartan [Cozaar] 25 mg PO HS 02/24/17 03/30/17 History Nitroglycerin Sl Tabs [Nitrostat] 0.4 mg SUBLINGUAL Q5M PRN 02/24/17 03/30/17 History Tiotropium Br/Olodaterol HCl 2 puff INHALATION RT-DAILY 02/24/17 03/30/17 History [Stiolto Respimat Inhal [place]] rOPINIRole HCL [Requip] 3 mg PO HS 02/24/17 03/30/17 History HYDROcodone/APAP 5-325MG [[place] 5] 1 tab PO HS 03/30/17 03/30/17 History Allergies Allergy/AdvReac Type Severity Reaction Status Date / Time ranolazine [From Ranexa] Allergy Severe Seizures Verified 03/30/17 16:18 Physical Exam Vitals: Vital Signs Temp Pulse Pulse Resp BP BP Pulse Ox 03/31/17 08:19 97.0 F L 18 L 18 117/56 97 03/31/17 08:09 99 F 82 18 120/53 99 03/31/17 08:04 98.9 F 84 18 116/47 98 03/31/17 06:45 97.7 F 69 18 122/63 97 03/31/17 06:15 97.5 F L 66 18 118/60 98 03/31/17 06:05 97.6 F 71 18 133/63 98 03/31/17 03:46 97.6 F 72 18 115/56 98 03/31/17 01:40 97.2 F L 70 16 118/61 97 03/31/17 00:14 97.8 F 69 18 105/53 98 03/30/17 23:44 97.5 F L 65 18 97/50 98 03/30/17 23:40 97.5 F L 65 18 97/50 98 03/30/17 23:34 98.0 F 69 18 98/50 98 03/30/17 23:07 98.1 F 69 18 96/47 96 03/30/17 21:01 97.3 F L 72 18 109/49 99 03/30/17 20:31 97.9 F 71 18 114/51 97 03/30/17 20:21 97.6 F 79 18 116/52 98 03/30/17 20:15 97.6 F 79 18 116/52 98 03/30/17 16:17 97.1 F L 70 18 110/51 100 Intake and Output 03/30/17 03/31/17 03/31/17 22:59 06:59 14:59 Intake Total 0 620 460 Output Total 300 Balance 0 320 460 Intake: Blood Product 0 620 460 Rc As-1 Unit 0 310 [id number] Rc As-1 Unit 0 310 [id number] Rc As-1 Unit 310 [id number] Rc As-3 Unit 0 [id number] Output: Urine 300 Other: Voiding Method Toilet Toilet Toilet # Voids 1 Weight 66.9 kg General: The patient is awake and alert, in no distress, and does not appear acutely ill. Skin: Skin is warm and dry and no rashes or lesions are noted. Eye: Pupils are equal, round and reactive to light, extra-ocular movements are intact; there is normal conjunctiva bilaterally. Ears, nose, mouth and throat: There are moist mucous membranes and no oral lesions. Neck: The neck is supple, there is no tenderness or JVD. Cardiovascular: There is a regular rate and rhythm. Systolic murmur at the apex Respiratory: Lungs are clear to auscultation, respirations are non-labored, breath sounds are equal. Gastrointestinal: Soft, non-distended, non-tender abdomen without masses or organomegaly noted. There is no rebound or guarding present. Bowel sounds are unremarkable. Back: There is no tenderness to palpation in the midline. There is no obvious deformity. Musculoskeletal: Normal ROM, no tenderness, There is no pedal edema. There is no calf tenderness or swelling. Extremities: No edema. Vascular: Femoral pulse is normal. Posterior tibial pulses are normal .Dorsalis pedis is palpable. Neurological: CN II-XII intact. There are no obvious motor or sensory deficits. Speech is normal. Psychiatric: Cooperative, appropriate mood & affect, normal judgment. Results 03/31/17 02:28 03/30/17 17:15 Cardiac Enzymes 03/30/17 Range/Units 17:15 Troponin I <0.012 (0.000-0.034) ng/mL CBC 03/30/17 03/31/17 Range/Units 17:15 02:28 WBC 10.0 9.4 (3.8-10.6) k/uL RBC 1.87 L 2.39 L (4.30-5.90) m/uL Hgb 5.2 L* D 6.8 L* D (13.0-17.5) gm/dL Hct 16.5 L* 20.7 L (39.0-53.0) % Plt Count 307 266 (150-450) k/uL Comprehensive Metabolic Panel 03/30/17 Range/Units 17:15 Sodium 137 (137-145) mmol/L Potassium 4.3 (3.5-5.1) mmol/L Chloride 104 (98-107) mmol/L Carbon Dioxide 22 (22-30) mmol/L BUN 23 H (9-20) mg/dL Creatinine 1.18 (0.66-1.25) mg/dL Glucose 93 (74-99) mg/dL Calcium 8.9 (8.4-10.2) mg/dL Current Medications Generic Name Dose Route Start Last Admin Trade Name Freq PRN Reason Stop Dose Admin Hydrocodone Bitart/Acetaminophen 1 each 03/30/17 21:00 03/30/17 21:15 [place] 5-325 PO Not Given HS KATHI Carvedilol 3.125 mg 03/30/17 17:30 03/31/17 06:51 Coreg PO 3.125 mg BID-W/MEALS KATHI Administration Digoxin 125 mcg 03/30/17 21:00 03/30/17 21:31 Lanoxin PO 125 mcg HS KATHI Administration Ferrous Sulfate 325 mg 03/31/17 12:00 03/31/17 08:11 Feosol PO 325 mg 1200 KATHI Administration Furosemide 10 mg 03/31/17 09:00 03/31/17 08:11 Lasix PO 10 mg DAILY KATHI Administration Isosorbide Mononitrate 60 mg 03/30/17 21:00 03/31/17 08:11 Imdur PO 60 mg BID KATHI Administration Levothyroxine Sodium 88 mcg 03/31/17 06:30 03/31/17 06:51 Synthroid PO 88 mcg 0630 KATHI Administration Losartan Potassium 25 mg 03/30/17 21:00 03/30/17 23:50 Cozaar PO Not Given HS KATHI Meclizine HCl 12.5 mg 03/30/17 16:34 Antivert PO Q8HR PRN Vertigo Nitroglycerin 0.4 mg 03/30/17 16:34 Nitrostat SUBLINGUAL Q5M PRN Chest Pain Non-Formulary Medication 2 puff 03/31/17 08:00 Tiotropium Br/Olodaterol Hcl [Stiolto Respimat Inhal [place]] INHALATION RT-DAILY KATHI Ropinirole HCl 3 mg 03/30/17 21:00 03/30/17 21:31 Requip PO 3 mg HS KATHI Administration Tamsulosin HCl 0.4 mg 03/30/17 21:00 03/30/17 21:31 Flomax PO 0.4 mg HS KATHI Administration Intake and Output 03/30/17 03/31/17 03/31/17 22:59 06:59 14:59 Intake Total 0 620 460 Output Total 300 Balance 0 320 460 Intake: Blood Product 0 620 460 Rc As-1 Unit 0 310 [id number] Rc As-1 Unit 0 310 [id number] Rc As-1 Unit 310 [id number] Rc As-3 Unit 0 [id number] Output: Urine 300 Other: Voiding Method Toilet Toilet Toilet # Voids 1 Weight 66.9 kg 03/31/17 02:28 03/30/17 17:15 EKG Interpretations (text) Normal sinus rhythm with left bundle branch block Assessment and Plan Plan: Syncope secondary to severe anemia Nonischemic cardiomyopathy status post AICD Paroxysmal atrial fibrillation I'm going to stop the blood thinner that the patient is on vent stop the aspirin I reviewed his labs EKG rhythm strips. Reviewed old records. Syncope is noncardiac. Whenever the anemia issues have resolved he can be discharged home and follow up arranged with Dr. VC campos
--- NOTE | 2017-03-31 10:54 | ECHOF ---
Referral Reason:syncope MEASUREMENTS -------- HEIGHT: 165.1 cm WEIGHT: 66.7 kg BP: 117/46 RVIDd: 3.0 cm (< 3.3) IVSd: 1.2 cm (0.6 - 1.1) LVIDd: 4.3 cm (3.9 - 5.3) LVPWd: 1.3 cm (0.6 - 1.1) IVSs: 1.4 cm LVIDs: 4.3 cm LVPWs: 1.0 cm LA Diam: 4.0 cm (2.7 - 3.8) LAESV Index (A-L): 35.29 ml/m Ao Diam: 2.6 cm (2.0 - 3.7) AV Cusp: 2.0 cm (1.5 - 2.6) LA Diam: 4.8 cm (2.7 - 3.8) MV EXCURSION: 17.354 mm (> 18.000) MV EF SLOPE: 102 mm/s (70 - 150) EPSS: 0.4 cm RAP: 5.00 mmHg RVSP: 38.14 mmHg FINDINGS -------- Paced rhythm. This was a technically adequate study. The left ventricular size is normal. There is mild concentric left ventricular hypertrophy. Overall left ventricular systolic function is low-normal with, an EF between 50 - 55 %. The right ventricle is normal in size. LA is moderately dilated 34-39 ml/m2 The right atrial size is normal. There is mild aortic valve sclerosis. There is no evidence of aortic regurgitation. Mild mitral annular calcification present. Moderate mitral regurgitation is present. Mild tricuspid regurgitation present. There is mild pulmonary hypertension. The right ventricular systolic pressure, as measured by Doppler, is 38.14mmHg. Trace/mild (physiologic) pulmonic regurgitation. The aortic root size is normal. There is no pericardial effusion. CONCLUSIONS -------- 1. The left ventricular size is normal. 2. The right ventricular systolic pressure, as measured by Doppler, is 38.14mmHg. 3. Trace/mild (physiologic) pulmonic regurgitation. 4. The aortic root size is normal. 5. There is no pericardial effusion. 6. There is mild concentric left ventricular hypertrophy. 7. Overall left ventricular systolic function is low-normal with, an EF between 50 - 55 %. 8. LA is moderately dilated 34-39 ml/m2 9. There is mild aortic valve sclerosis. 10. Mild mitral annular calcification present. 11. Moderate mitral regurgitation is present. 12. Mild tricuspid regurgitation present. 13. There is mild pulmonary hypertension. GENERAL ACCOUNTANT: Tasha Joseph RDCS
--- NOTE | 2017-03-31 12:51 | US ---
EXAMINATION TYPE: US carotid duplex BILAT DATE OF EXAM: 03/31/2017 COMPARISON: NONE CLINICAL HISTORY: Acute syncope and collapse.. EXAM MEASUREMENTS: RIGHT: Peak Systolic Velocity (PSV) cm/sec ----- Right CCA: 98.0 ----- Right ICA: 93.1 ----- Right ECA: 110.9 ICA/CCA ratio: 1.0 RIGHT: End Diastole cm/sec ----- Right CCA: 26.8 ----- Right ICA: 20.4 ----- Right ECA: 9.1 LEFT: Peak Systolic Velocity (PSV) cm/sec ----- Left CCA: 85.0 ----- Left ICA: 111.6 ----- Left ECA: 135.3 ICA/CCA ratio: 1.3 LEFT: End Diastole cm/sec ----- Left CCA: 20.2 ----- Left ICA: 28.8 ----- Left ECA: 0.0 VERTEBRALS (direction of flow): Right Vertebral: Antegrade Left Vertebral: Antegrade . Rhythm: Normal IMPRESSION: Atheromatous plaquing. Significant flow-limiting stenosis is not evident. Criteria for Assigning % of Stenosis / Diameter reduction (Estimation based on the indirect measurements of the internal carotid artery velocities (ICA PSV). 1. Normal (no stenosis)=ICA PSV < 125 cm/s: ratio < 2.0: ICA EDV<40 cm/s. 2. Less than 50% stenosis=ICA PSV < 125 cm/s: ratio < 2.0: ICA EDV<40 cm/s. 3. 50 to 69% stenosis=ICA PSV of 125 to 230 cm/s: ration 2.0 ? 4.0: ICA EDV 40-100 cm/s. 4. Greater than 70% stenosis to near occlusion= ICA PSV > 230 cm/s: ratio > 4.0: ICA EDV > 100 cm/s. 5. Near occlusion= ICA PSV velocities may be low or undetectable: variable ratio and ICA EDV. 6. Total occlusion=unable to detect flow.
[2017-03-31 13:45] LABS: Basophils % (A) 0 %; CHCM 32.7; Eosinophils # (A) 0.1 k/uL (0-0.7); Eosinophils % (A) 1 %; HCT 28.7 % (39.0-53.0); HDW 4.46; Hypochromasia Moderate; Luc # (Auto) 0.23; Luc % (Auto) 2; Lymphocytes # (A) 1.4 k/uL (1.0-4.8); Lymphocytes % (A) 14 %; MCH 29.3 pg (25.0-35.0); MCHC 34.1 g/dL (31.0-37.0); MCV 86.1 fL (80.0-100.0); Mean Platelet Volume 8.3; Monocytes # (A) 0.4 k/uL (0-1.0); Monocytes % (A) 4 %; Neutrophils # (A) 7.5 k/uL (1.3-7.7); Neutrophils % (A) 78 %; Poikilocytosis Moderate; RBC 3.33 m/uL (4.30-5.90); WBC 9.6 k/uL (3.8-10.6); WBC (Perox) 9.93
[2017-03-31 13:49] LABS: HGB 9.8 gm/dL (13.0-17.5)
--- NOTE | 2017-03-31 14:46 | P.GSCN ---
History of Present Illness Consult date: 03/31/17 History of present illness: 86-year-old being seen at the request of the attending for a surgical eval as part of a workup for anemia 86-year-old gentleman presented to the emergency room on the day of admission with a chief complaint of developing an acute syncopal episode at home. Patient stated that he been up in the morning doing his usual activity we will to work in the garden he felt very dizzy lightheaded. Patient stated that he did not feel right his became concerned and activated EMS system. Patient's primary care provider advised the patient to come into the emergency room to be evaluated for the above- mentioned symptoms. Patient did have a CAT scan of the brain in the emergency room showed no evidence of acute stroke. Subsequent the patient was hospitalized it was noted patient had a hemoglobin of 5.2. Patient has received 4 units of packed red blood cells and the hemoglobin this morning is 9.8. Given the above clinical presentation surgical eval was requested. Patient states his last colonoscopy was 2 years ago. Patient stated to his knowledge there were no acute findings. Patient reports no blood in the stool. He should states he takes an iron supplement his stools are normally dark in color. Patient this admission has been seen by cardiology service. Also noted patient was on Xarelto for paroxysmal atrial fibrillation. There Xarelto has been held. Patient denies any prior episodes. Patient did have a cardiac workup done in June heart catheterization showed mild coronary artery disease similar to a prior heart catheterization 2009. Syncopal episode was felt to be noncardiac. Patient denies any dizziness lightheadedness chest pain or shortness of breath when questioning Additionally the patient was seen by neurology service as part of the workup for the syncopal episode patient gave no evidence of having a seizure-like activity associated with this fall. Patient CAT scan of the brain was also negative for any acute evidence of a stroke or hemorrhage. Carotid Doppler studies pending. They recommended an EEG to rule out a seizure may continue to follow the patient felt like the syncopal episode was probably contributed to the patient's acute blood loss anemia Currently the patient is sitting up in bed pleasant cooperative oriented 3 states the dizziness has subsided did discuss with the patient the plan to do a colonoscopy this coming Monday with a bowel prep patient's in agreement Review of Systems Essentially unremarkable except as mentioned in the present illness Past Medical History Past Medical History: Atrial Fibrillation, Coronary Artery Disease (CAD), Chest Pain / Angina, Heart Failure, GERD/Reflux, Thyroid Disorder Additional Past Medical History / Comment(s): C/O LT SHOUDER PAIN AND DECREASE ROM. AICD (medtronic placed at [facility] in 2008), cardiomyopathy, gastritis, paraesophageal hiatal hernia,left knee pain with scheduled injections for pain, FALLS. HIATAL HERNIA,GLAUCOMA, MACULAR DEGENERATION, URINARY INCONT. EPISODIC BLURRY VISION. WAITING ON DELIVERY OF CPAP MACHINE. History of Any Multi-Drug Resistant Organisms: None Reported Past Surgical History: AICD, Heart Catheterization, Orthopedic Surgery, Tonsillectomy Additional Past Surgical History / Comment(s): AICD placed twice both at [facility]- in 1999 and 2008, PTCA November of 1999, hydrocelectomy, EGDs with last one benign EGD with Bx along antrum which pt stated was benign, colonoscopy with polypectomy, bilateral cataract removal; left knee sx "shaved cartilage", stress test, haert cath -no stents. Past Anesthesia/Blood Transfusion Reactions: No Reported Reaction Type of Cardiac Device: AICD Device Placement Date:: 2008 Smoking Status: Former smoker - Past Family History Mother History Unknown: Yes Family Medical History: Blood Disorder, Coronary Artery Disease (CAD) Additional Family Medical History / Comment(s): Von Willebrand Daughter(s) Family Medical History: Cancer Additional Family Medical History / Comment(s): leukemia Father History Unknown: Yes Family Medical History: Coronary Artery Disease (CAD) Additional Family Medical History / Comment(s): Father was healthy Medications and Allergies Home Medications Medication Instructions Recorded Confirmed Type Alfuzosin HCl [Uroxatral] 10 tab PO HS 03/05/14 03/30/17 History Digoxin [Lanoxin] 125 mcg PO HS 03/05/14 03/30/17 History Carvedilol [Coreg] 3.125 mg PO BID 07/06/16 03/30/17 History Isosorbide Mononitrate ER [Imdur] 60 mg PO BID 07/06/16 03/30/17 History Levothyroxine Sodium [Synthroid] 88 mcg PO DAILY 07/06/16 03/30/17 History Meclizine [Antivert] 12.5 mg PO Q8HR PRN 07/06/16 03/30/17 History Meloxicam [Mobic] 7.5 mg PO HS 07/06/16 03/30/17 History Rivaroxaban [Xarelto] 15 mg PO HS 07/06/16 03/30/17 History Furosemide [Lasix] 10 mg PO DAILY 07/08/16 03/30/17 History Ferrous Sulfate [Feosol] 325 mg PO DAILY 02/24/17 03/30/17 History Losartan [Cozaar] 25 mg PO HS 02/24/17 03/30/17 History Nitroglycerin Sl Tabs [Nitrostat] 0.4 mg SUBLINGUAL Q5M PRN 02/24/17 03/30/17 History Tiotropium Br/Olodaterol HCl 2 puff INHALATION RT-DAILY 02/24/17 03/30/17 History [Stiolto Respimat Inhal [place]] rOPINIRole HCL [Requip] 3 mg PO HS 02/24/17 03/30/17 History HYDROcodone/APAP 5-325MG [[place] 5] 1 tab PO HS 03/30/17 03/30/17 History Allergies Allergy/AdvReac Type Severity Reaction Status Date / Time ranolazine [From Ranexa] Allergy Severe Seizures Verified 03/30/17 16:18 Surgical - Exam Vital Signs Temp Pulse Resp BP Pulse Ox 97.1 F L 70 18 110/51 100 03/30/17 16:17 03/30/17 16:17 03/30/17 16:17 03/30/17 16:17 03/30/17 16:17 GENERAL APPEARANCE: 86 -year-old male patient is alert, oriented, in no acute distress. Hard of hearing VITAL SIGNS: Reviewed HEENT: Head is normocephalic and atraumatic. Pupils are equal and reactive. The nares are patent. Oropharynx is clear without lesions. NECK: Supple without lymphadenopathy. Traches midline. HEART: S1, S2. Regular rate and rhythm. Monitor showing sinus rhythm LUNGS: No crackles or wheezes are heard. Adequate air movement on room air ABDOMEN: Soft, nontender, nondistended with good bowel sounds. No peritoneal signs. No palpable organomegaly or masses. States no stool no difficulty in urinating no nausea no vomiting EXTREMITIES: Normal skin color and turgor. No cyanosis, rash, ulceration, clubbing or edema. Radial pedal pulses are 2/4 bilaterally. NEUROLOGICAL: No focal deficits. Strength and sensation are grossly intact. Results - Labs 03/31/17 13:30 03/30/17 17:15 Abnormal Lab Results - Last 24 Hours (Table) 03/30/17 03/30/17 03/30/17 Range/Units 17:15 17:15 17:21 RBC 1.87 L (4.30-5.90) m/uL Hgb 5.2 L* D (13.0-17.5) gm/dL Hct 16.5 L* (39.0-53.0) % BUN 23 H (9-20) mg/dL Crossmatch See Detail 03/31/17 03/31/17 Range/Units 02:28 13:30 RBC 2.39 L 3.33 L (4.30-5.90) m/uL Hgb 6.8 L* D 9.8 L D (13.0-17.5) gm/dL Hct 20.7 L 28.7 L (39.0-53.0) % BUN (9-20) mg/dL Crossmatch Diabetes panel 03/30/17 Range/Units 17:15 Sodium 137 (137-145) mmol/L Potassium 4.3 (3.5-5.1) mmol/L Chloride 104 (98-107) mmol/L Carbon Dioxide 22 (22-30) mmol/L BUN 23 H (9-20) mg/dL Creatinine 1.18 (0.66-1.25) mg/dL Glucose 93 (74-99) mg/dL Calcium 8.9 (8.4-10.2) mg/dL Calcium panel 03/30/17 Range/Units 17:15 Calcium 8.9 (8.4-10.2) mg/dL Pituitary panel 03/30/17 Range/Units 17:15 Sodium 137 (137-145) mmol/L Potassium 4.3 (3.5-5.1) mmol/L Chloride 104 (98-107) mmol/L Carbon Dioxide 22 (22-30) mmol/L BUN 23 H (9-20) mg/dL Creatinine 1.18 (0.66-1.25) mg/dL Glucose 93 (74-99) mg/dL Calcium 8.9 (8.4-10.2) mg/dL Adrenal panel 03/30/17 Range/Units 17:15 Sodium 137 (137-145) mmol/L Potassium 4.3 (3.5-5.1) mmol/L Chloride 104 (98-107) mmol/L Carbon Dioxide 22 (22-30) mmol/L BUN 23 H (9-20) mg/dL Creatinine 1.18 (0.66-1.25) mg/dL Glucose 93 (74-99) mg/dL Calcium 8.9 (8.4-10.2) mg/dL Assessment and Plan Plan: Impression Syncopal episode suspect due to acute blood loss anemia Present on admission syncopal collapse suspect due to acute blood loss anemia Chronic tremors Syncopal and collapse unclear etiology Automatic cardioverter defibrillator Paroxysmal atrial fibrillation on Xarelto Nonischemic cardiomyopathy status post AICD History of chronic constipation Echocardiogram March 31 left ventricular systolic function low normal EF 50- 55% with mild pulmonary hypertension Chronic systolic congestive heart failure no evidence of exacerbation heart catheterization June 2016 showed evidence of mild coronary artery disease Plan Patient will be scheduled for colonoscopy on Monday will start bowel prep on noon on Monday discuss with patient agreeable Xarelto on hold IV hydration as ordered Resume home meds as appropriate GI and DVT prophylaxis Repeat labs in the morning Further recommendations pending The above impression and plan of care have been discussed and directed by signing physician. Minoo Landin nurse practitioner acting as scribe for signing physician.
--- NOTE | 2017-03-31 20:20 | P.PN ---
Subjective This patient is a 86-year-old right-handed white male who was admitted to hospital yesterday with symptoms of possible acute vasovagal syncope. Patient had a passing out spell at home. He was seen in neurology consultation yesterday and had evidence suggesting acute syncope likely secondary to severe anemia. His hemoglobin on admission yesterday was 5.2. He received 4 units of packed red blood cells and his hemoglobin this morning is 9.8. Patient is to undergo a colonoscopy procedure on Monday according to the nursing staff. He apparently had positive occult blood in his ptosis well. He does have a history of paroxysmal atrial fibrillation and had been on Xarelto for treatment. He was seen by cardiology today and his Xarelto was discontinued. The patient still complains of some symptoms of fatigue. Since likely secondary to his severe anemia. His EKG reveals normal sinus rhythm with a left bundle branch block. As noted cardiology is continuing to monitor him. He has a history of nonischemic cardiomyopathy and is status post AICD placement. Patient overall medical condition remains guarded given his multiple complex medical issues. He is resting comfortably today. He underwent a routine EEG which was reviewed and fails to reveal any evidence of epileptiform discharges. We have reviewed all of these test results today with the patient in detail. We will continue close neurological follow-up of this patient during this admission. Objective - Vital Signs Vital signs: Vital Signs Temp 97.2 F L 03/31/17 16:46 Pulse 68 03/31/17 16:46 Resp 18 03/31/17 16:46 BP 126/63 03/31/17 16:46 Pulse Ox 97 03/31/17 16:46 Intake & Output 03/30/17 03/31/17 03/31/17 18:59 06:59 18:59 Intake Total 620 1680 Output Total 300 Balance 320 1680 Weight 66.9 kg 66.9 kg Intake: Oral 600 Blood Product 620 1080 Rc As-1 Unit 0 310 [id number] Rc As-1 Unit 310 [id number] Rc As-1 Unit 310 [id number] Rc As-3 Unit 310 [id number] Output: Urine 300 Other: Voiding Method Toilet Toilet # Voids 1 - Exam Physical examination: PHYSICAL EXAMINATION: Patient is resting comfortably in bed. VITAL SIGNS: Blood pressure is [117/55]. Heart rate is [78]. Respiration is [16] . Temperature is [97.7]. HEENT: Head is atraumatic, neck is supple, there were no carotid bruits. CHEST: Lungs are clear to auscultation and percussion. CARDIAC: S1, S2 normal rate and rhythm. There is no murmur. ABDOMEN: Soft and nontender. Bowel sounds are present. EXTREMITIES: There is no pedal edema. Peripheral pulses are present. Neurological examination: Patient has a nonfocal neurological examination today. - Labs CBC & Chem 7: 03/31/17 13:30 03/30/17 17:15 Labs: Abnormal Lab Results - Last 24 Hours (Table) 03/30/17 03/30/17 03/30/17 Range/Units 17:15 17:15 17:21 RBC 1.87 L (4.30-5.90) m/uL Hgb 5.2 L* D (13.0-17.5) gm/dL Hct 16.5 L* (39.0-53.0) % BUN 23 H (9-20) mg/dL Crossmatch See Detail 03/31/17 03/31/17 Range/Units 02:28 13:30 RBC 2.39 L 3.33 L (4.30-5.90) m/uL Hgb 6.8 L* D 9.8 L D (13.0-17.5) gm/dL Hct 20.7 L 28.7 L (39.0-53.0) % BUN (9-20) mg/dL Crossmatch Assessment and Plan (1) Syncope and collapse Status: Acute Code(s): R55 - SYNCOPE AND COLLAPSE (2) AICD (automatic cardioverter/defibrillator) present Status: Acute Code(s): Z95.810 - PRESENCE OF AUTOMATIC (IMPLANTABLE) CARDIAC DEFIBRILLATOR (3) Cardiomyopathy Status: Acute Code(s): I42.9 - CARDIOMYOPATHY, UNSPECIFIED (4) TIA (transient ischemic attack) Status: Acute Code(s): G45.9 - TRANSIENT CEREBRAL ISCHEMIC ATTACK, UNSPECIFIED (5) Tremor Status: Acute Code(s): R25.1 - TREMOR, UNSPECIFIED Plan: This patient is a 86-year-old gentleman who was admitted to hospital today with episode of syncope and collapse. He was outdoors walking to his garden tractor when he apparently became lightheaded and collapsed. He was unresponsive only for a few seconds. He felt very weak and tired. He was brought into the emergency room where he was further evaluated. He had evidence of severe anemia. He was admitted to hospital for further management. His hemoglobin on admission was 5.2. He is being given blood transfusion at this time. The patient's neurological examination is nonfocal. This patient has suffered an acute vasovagal syncope secondary to severe anemia. His computed tomography scan of the brain failed to reveal any acute changes. He does have history of atrial fibrillation and is currently on Xarelto. He should be monitored for acute GI bleeding. The patient was seen by general surgery today. There is scheduling him for colonoscopy procedure on Monday. He was given 4 units of packed red blood cells and his hemoglobin today is 9.8. His recent syncopal episode likely due to his severe anemia. We will await further recommendations from cardiology. Neurological examination today is nonfocal. He denies any recurrent episodes of syncope today. He has been up and ambulating in his room without difficulties. We will continue close neurological follow-up for this patient. Would recommend a routine EEG to rule out seizure disorder. His overall prognosis at this time remains very guarded.
[2017-03-31] MEDS: DIGOXIN 125 MCG TAB PO SCH (20:30)
[2017-03-31] MEDS: LOSARTAN 25 MG TAB PO SCH (20:30)
[2017-03-31] MEDS: TAMSULOSIN 0.4 MG CAP.ER.24H PO SCH (20:31)
[2017-03-31] MEDS: HYDROcodone/APAP 5-325MG 1 EACH TAB PO SCH (20:34)
[2017-03-31] MEDS: PANTOPRAZOLE 40 MG/10 ML VIAL IVP SCH (20:35)
--- NOTE | 2017-03-31 21:37 | EEG ---
ELECTROENCEPHALOGRAM REPORT DATE OF EE03/31/2017 Room number 657, bed 2. REFERRING PHYSICIAN: Hernán Bansal M.D. INTERPRETING PHYSICIAN: Maco León M.D. INDICATION FOR EXAMINATION: This patient is an 86-year-old male being evaluated for syncope and collapse. AGE: 86. EEG FINDINGS: A routine 21-channel awake digital EEG recording was accomplished utilizing the 10-20 international system with bipolar and referential montages. The background activity in the most alert resting state consists of a low to medium amplitude, fairly well developed and well sustained 6 Hertz activity over the posterior head regions. This posterior rhythm attenuates to eye opening. There is a small amount of low amplitude 18-20 Hertz beta activity seen maximally over the anterior head regions. Muscle and movement artifact was observed on a few occasions during the tracing. Hyperventilation was not performed. Photic stimulation at flash frequencies of 2-30 Hertz produced a minimal occipital driving response. No epileptiform discharges were seen. IMPRESSION: This EEG is moderately abnormal in diffuse fashion due to slowing of the EEG background. The EEG failed to reveal any focal, lateralized, or epileptiform abnormalities. Clinical correlation is recommended. MMODL / IJN: [id number] /
[2017-04-01] MEDS: CARVEDILOL 3.125 MG TAB PO SCH ×2 (06:06→18:02)
[2017-04-01] MEDS: LEVOTHYROXINE 88 MCG TAB PO SCH (06:06)
[2017-04-01 06:21] LABS: Basophils # (A) 0.1 k/uL (0-0.2); Basophils % (A) 1 %; CH 28.5; CHCM 33.6; Eosinophils # (A) 0.2 k/uL (0-0.7); Eosinophils % (A) 2 %; HCT 28.3 % (39.0-53.0); HDW 4.61; HGB 9.1 gm/dL (13.0-17.5); Hypochromasia Slight; Luc # (Auto) 0.44; Luc % (Auto) 4; Lymphocytes % (A) 18 %; MCH 27.5 pg (25.0-35.0); MCHC 32.3 g/dL (31.0-37.0); MCV 85.2 fL (80.0-100.0); Mean Platelet Volume 8.9; Monocytes # (A) 0.7 k/uL (0-1.0); Monocytes % (A) 7 %; Neutrophils # (A) 7.4 k/uL (1.3-7.7); Neutrophils % (A) 69 %; Poikilocytosis Marked; RBC 3.32 m/uL (4.30-5.90); RDW 15.8 % (11.5-15.5); WBC 10.8 k/uL (3.8-10.6); WBC (Perox) 10.79
[2017-04-01] MEDS: PANTOPRAZOLE 40 MG/10 ML VIAL IVP SCH ×2 (08:57→20:38)
[2017-04-01] MEDS: FUROSEMIDE 20 MG TAB PO SCH (08:58)
[2017-04-01] MEDS: ISOSORBIDE MONONITRATE ER 60 MG TAB.ER.24H PO SCH ×2 (08:58→20:37)
[2017-04-01] MEDS: FERROUS SULFATE 325 MG TAB PO SCH (11:39)
--- NOTE | 2017-04-01 11:57 | P.PN ---
Subjective Principal diagnosis: Near syncope This is an 86-year-old gentleman with history of nonischemic cardio myopathy and prior AICD implantation, hypertension, hyperlipidemia, paroxysmal atrial fibrillation who presented to the hospital following a near syncopal episode. Patient was found to be significantly anemic on admission with a hemoglobin of 5.2. He was seen in consultation by Dr. Lopes yesterday who felt that the patient does not require any further cardiac workup at this time. He did have an echo performed last year which revealed an ejection fraction which came back to be normal. A cardiac catheterization in June revealed mild coronary artery disease. Patient had been taking Xarelto for anticoagulation. This is on hold. He is scheduled tomorrow to undergo EGD and colonoscopy. Hemoglobin this morning is 9.1. Objective - Vital Signs Vital signs: Vital Signs Temp 97.7 F 04/01/17 08:00 Pulse 78 04/01/17 08:00 Resp 16 04/01/17 03:57 BP 99/49 04/01/17 08:00 Pulse Ox 94 L 04/01/17 08:00 Intake & Output 03/31/17 04/01/17 04/01/17 18:59 06:59 18:59 Intake Total 1902 20 Balance 1902 20 Weight 66.9 kg 65.9 kg Intake: IV 20 0.9% NS FLUSH 10 Ml 20 Oral 822 Blood Product 1080 Rc As-1 Unit 310 [id number] Rc As-3 Unit 310 [id number] Other: Voiding Method Toilet Toilet # Voids 1 - Exam PHYSICAL EXAMINATION: HEENT: Head is atraumatic, normocephalic. Pupils equal, round. Neck is supple. There is no elevated jugular venous pressure. HEART EXAMINATION: Heart S1 S2 1 systolic murmur is heard. CHEST EXAMINATION: Lungs are clear to auscultation and precussion. No chest wall tenderness is noted on palpation or with deep breathing. ABDOMEN: Soft, nontender. Bowel sounds are heard. No organomegaly noted. EXTREMITIES: 2+ peripheral pulses with no evidence of peripheral edema and no calf tenderness noted. NEUROLOGIC patient is awake, alert and oriented -3. . - Labs CBC & Chem 7: 04/01/17 06:03 03/30/17 17:15 Labs: Abnormal Lab Results - Last 24 Hours (Table) 03/31/17 04/01/17 Range/Units 13:30 06:03 WBC 10.8 H (3.8-10.6) k/uL RBC 3.33 L 3.32 L (4.30-5.90) m/uL Hgb 9.8 L D 9.1 L (13.0-17.5) gm/dL Hct 28.7 L 28.3 L (39.0-53.0) % RDW 15.8 H (11.5-15.5) % Assessment and Plan (1) Near syncope Status: Acute (2) Anemia Status: Acute (3) NICM (nonischemic cardiomyopathy) Status: Acute (4) AICD (automatic cardioverter/defibrillator) present Status: Acute (5) TIA (transient ischemic attack) Status: Acute Plan: From cardiology's perspective, we will recommend to continue to hold the patient 's xarelto. Syncope is likely secondary to anemia. No further cardiac workup needed at this time. Patient is scheduled to undergo EGD and colonoscopy tomorrow. Once the patient is discharged home from the hospital we will make a follow-up appointment with Dr. VC Young in the office. DNP note has been reviewed, I agree with a documented findings and plan of care. Patient was seen and examined.
[2017-04-01] MEDS: DIGOXIN 125 MCG TAB PO SCH (20:37)
[2017-04-01] MEDS: LOSARTAN 25 MG TAB PO SCH (20:38)
[2017-04-01] MEDS: TAMSULOSIN 0.4 MG CAP.ER.24H PO SCH (20:38)
[2017-04-01] MEDS: HYDROcodone/APAP 5-325MG 1 EACH TAB PO SCH (20:40)
--- NOTE | 2017-04-02 03:56 | P.PN ---
Subjective This patient is a 86-year-old right-handed white male who was admitted to hospital yesterday with symptoms of possible acute vasovagal syncope. Patient had a passing out spell at home. He was seen in neurology consultation yesterday and had evidence suggesting acute syncope likely secondary to severe anemia. His hemoglobin on admission yesterday was 5.2. He received 4 units of packed red blood cells and his hemoglobin this morning is 9.8. Patient is to undergo a colonoscopy procedure on Monday according to the nursing staff. He apparently had positive occult blood in his ptosis well. He does have a history of paroxysmal atrial fibrillation and had been on Xarelto for treatment. He was seen by cardiology today and his Xarelto was discontinued. The patient still complains of some symptoms of fatigue. Since likely secondary to his severe anemia. His EKG reveals normal sinus rhythm with a left bundle branch block. As noted cardiology is continuing to monitor him. He has a history of nonischemic cardiomyopathy and is status post AICD placement. Patient overall medical condition remains guarded given his multiple complex medical issues. He is resting comfortably today. He underwent a routine EEG which was reviewed and fails to reveal any evidence of epileptiform discharges. Patient is scheduled to undergo colonoscopy and EGD procedure on Monday. His hemoglobin today is 9.1. He has had no further syncopal episodes since undergoing his blood transfusion yesterday. We have reviewed all of these test results today with the patient in detail. We will continue close neurological follow-up of this patient during this admission. Objective - Vital Signs Vital signs: Vital Signs Temp 97.7 F 04/01/17 08:00 Pulse 79 04/01/17 16:00 Resp 16 04/01/17 03:57 BP 112/55 04/01/17 16:00 Pulse Ox 94 L 04/01/17 16:00 Intake & Output 04/01/17 04/01/17 04/02/17 06:59 18:59 06:59 Intake Total 20 410 Output Total 700 Balance 20 -290 Weight 65.9 kg Intake: IV 20 0.9% NS FLUSH 10 Ml 20 Oral 410 Output: Urine 700 Other: Voiding Method Toilet # Voids 1 1 - Exam Physical examination: PHYSICAL EXAMINATION: Patient is resting comfortably in bed. VITAL SIGNS: Blood pressure is [117/56]. Heart rate is [82]. Respiration is [16] . Temperature is [97.3]. HEENT: Head is atraumatic, neck is supple, there were no carotid bruits. CHEST: Lungs are clear to auscultation and percussion. CARDIAC: S1, S2 normal rate and rhythm. There is no murmur. ABDOMEN: Soft and nontender. Bowel sounds are present. EXTREMITIES: There is no pedal edema. Peripheral pulses are present. Neurological examination: Patient has a nonfocal neurological examination today. - Labs CBC & Chem 7: 04/01/17 06:03 03/30/17 17:15 Labs: Abnormal Lab Results - Last 24 Hours (Table) 04/01/17 Range/Units 06:03 WBC 10.8 H (3.8-10.6) k/uL RBC 3.32 L (4.30-5.90) m/uL Hgb 9.1 L (13.0-17.5) gm/dL Hct 28.3 L (39.0-53.0) % RDW 15.8 H (11.5-15.5) % Assessment and Plan (1) Syncope and collapse Status: Acute Code(s): R55 - SYNCOPE AND COLLAPSE (2) AICD (automatic cardioverter/defibrillator) present Status: Acute Code(s): Z95.810 - PRESENCE OF AUTOMATIC (IMPLANTABLE) CARDIAC DEFIBRILLATOR (3) Cardiomyopathy Status: Acute Code(s): I42.9 - CARDIOMYOPATHY, UNSPECIFIED (4) TIA (transient ischemic attack) Status: Acute Code(s): G45.9 - TRANSIENT CEREBRAL ISCHEMIC ATTACK, UNSPECIFIED (5) Tremor Status: Acute Code(s): R25.1 - TREMOR, UNSPECIFIED Plan: This patient is a 86-year-old gentleman who was admitted to hospital today with episode of syncope and collapse. He was outdoors walking to his garden tractor when he apparently became lightheaded and collapsed. He was unresponsive only for a few seconds. He felt very weak and tired. He was brought into the emergency room where he was further evaluated. He had evidence of severe anemia. He was admitted to hospital for further management. His hemoglobin on admission was 5.2. He is being given blood transfusion at this time. The patient's neurological examination is nonfocal. This patient has suffered an acute vasovagal syncope secondary to severe anemia. His computed tomography scan of the brain failed to reveal any acute changes. He does have history of atrial fibrillation and is currently on Xarelto. He should be monitored for acute GI bleeding. The patient was seen by general surgery today. There is scheduling him for colonoscopy procedure on Monday. He was given 4 units of packed red blood cells and his hemoglobin today is 9.1. His recent syncopal episode likely due to his severe anemia. We will await further recommendations from cardiology. Neurological examination today is nonfocal. He denies any recurrent episodes of syncope today. His hemoglobin today is 9.1. He remains asymptomatic with no recurrent syncope. He has been up and ambulating in his room without difficulties. Patient is scheduled to undergo colonoscopy and EGD on Monday. We will continue close neurological follow-up for this patient. Patient underwent a routine EEG which was reviewed and is negative for any evidence of epileptic discharge. We will continue close neurological follow-up of this patient during this admission. His overall prognosis at this time remains very guarded.
[2017-04-02] MEDS: LEVOTHYROXINE 88 MCG TAB PO SCH (06:14)
[2017-04-02] MEDS: CARVEDILOL 3.125 MG TAB PO SCH ×2 (06:14→17:24)
[2017-04-02 06:26] LABS: Anisocytosis Slight; Basophils # (A) 0.1 k/uL (0-0.2); Basophils % (A) 0 %; CH 28.5; Eosinophils # (A) 0.3 k/uL (0-0.7); Eosinophils % (A) 2 %; HDW 4.53; HGB 9.6 gm/dL (13.0-17.5); Hypochromasia Moderate; Luc # (Auto) 0.38; Luc % (Auto) 3; Lymphocytes % (A) 13 %; MCH 27.7 pg (25.0-35.0); MCHC 31.9 g/dL (31.0-37.0); MCV 86.8 fL (80.0-100.0); Monocytes # (A) 0.9 k/uL (0-1.0); Monocytes % (A) 6 %; Neutrophils # (A) 11.6 k/uL (1.3-7.7); Neutrophils % (A) 77 %; Poikilocytosis Moderate; RBC 3.46 m/uL (4.30-5.90); RDW 16.5 % (11.5-15.5); WBC 15.2 k/uL (3.8-10.6); WBC (Perox) 16.45
--- NOTE | 2017-04-02 07:54 | PN ---
PROGRESS NOTE CHIEF COMPLAINT: 86-year-old, white male, with severe anemia, status post 4 units of blood. Hemoglobin was 9.1, down from 9.8 yesterday and scheduled for colonoscopy and EGD on Monday. CT scan of the abdomen showed no recurrent bleeding in the belly. CT of the head is the same with no blood in the brain. Blood pressure 112/55, O2 94% on room air. Temp 97 to 96, pulse 71 to 79, respiratory rate 16-20. CARDIOVASCULAR: S1, S2. GI: Soft. HEMATOLOGY: Negative Homans. PSYCH: Fair mood. VASCULAR: Normal dorsalis pedis, posterior tibial and radial pulses. ASSESSMENT: 1. Severe anemia rule out GI bleeding versus significant pathology requiring 4 units of blood. EGD and colonoscopy scheduled for Monday. Cardiology has also seen the patient today. EEG has also been done per Dr. León. Although I do not expect it to show anything. He is on Xarelto for a chronic atrial fibrillation. An EEG has been ordered by Dr. León, the neurologist. EEG came back mildly abnormal fashion due to slowing of the EEG. No seizure disorders were seen per Dr. León's progress note shows no significant findings to account for any seizure disorder. Will pretty much do the GI bleed and will follow up next 24 to 48 hours. MMODL / IJN: [id number] /
[2017-04-02] MEDS: ISOSORBIDE MONONITRATE ER 60 MG TAB.ER.24H PO SCH ×2 (08:55→21:14)
[2017-04-02] MEDS: PANTOPRAZOLE 40 MG/10 ML VIAL IVP SCH ×2 (08:55→21:14)
--- NOTE | 2017-04-02 10:36 | PN ---
PROGRESS NOTE SUBJECTIVE: This is a 86-year-old, white male with severe anemia. Hemoglobin stabilizes in the low 9s today. He is set up for EGD and colonoscopy in the morning. He has been taken off his blood thinners that he was taking at home. CARDIOVASCULAR: S1, S2. Lungs are clear. GI is soft. HEMATOLOGY: Negative Homans. ASSESSMENT: 1. Acute GI bleed, unclear etiology. Coagulopathy possibly secondary to new anticoagulation. 2. History of atrial fibrillation. PLAN: EGD and colonoscopy in the morning. Possible discharge home after that. MMODL / IJN: [id number] /
[2017-04-02] MEDS ORDERED: PEG 3350-NA SULF,BICARB,CL/KCL 4,000 ML BOTTLE PO ONE (12:00)
[2017-04-02] MEDS: FERROUS SULFATE 325 MG TAB PO SCH (12:16)
[2017-04-02] MEDS: FUROSEMIDE 20 MG TAB PO SCH (12:16)
--- NOTE | 2017-04-02 18:09 | P.PN ---
Subjective This patient is a 86-year-old right-handed white male who was admitted to hospital yesterday with symptoms of possible acute vasovagal syncope. Patient had a passing out spell at home. He was seen in neurology consultation yesterday and had evidence suggesting acute syncope likely secondary to severe anemia. His hemoglobin on admission yesterday was 5.2. He received 4 units of packed red blood cells and his hemoglobin this morning is 9.8. Patient is to undergo a colonoscopy procedure on Monday according to the nursing staff. He apparently had positive occult blood in his ptosis well. He does have a history of paroxysmal atrial fibrillation and had been on Xarelto for treatment. He was seen by cardiology today and his Xarelto was discontinued. The patient still complains of some symptoms of fatigue. Since likely secondary to his severe anemia. His EKG reveals normal sinus rhythm with a left bundle branch block. As noted cardiology is continuing to monitor him. He has a history of nonischemic cardiomyopathy and is status post AICD placement. Patient overall medical condition remains guarded given his multiple complex medical issues. He is resting comfortably today. He underwent a routine EEG which was reviewed and fails to reveal any evidence of epileptiform discharges. Patient is scheduled to undergo colonoscopy and EGD procedure on Monday. His hemoglobin today is 9.6. He has had no further syncopal episodes since undergoing his blood transfusion yesterday. The patient scheduled for EGD and colonoscopy in the morning. He will possibly be considered for discharge home after these procedures. We have reviewed all of these test results today with the patient in detail. We will continue close neurological follow-up of this patient during this admission. Objective - Vital Signs Vital signs: Vital Signs Temp 96.6 F L 04/02/17 08:00 Pulse 76 04/02/17 12:00 Resp 16 04/02/17 03:14 BP 107/59 04/02/17 12:00 Pulse Ox 96 04/02/17 12:00 Intake & Output 04/01/17 04/02/17 04/02/17 18:59 06:59 18:59 Intake Total 410 20 426 Output Total 700 Balance -290 20 426 Weight 66.2 kg Intake: IV 20 10 0.9% NS FLUSH 10 Ml 20 10 Oral 410 416 Output: Urine 700 Other: # Voids 1 1 - Exam Physical examination: PHYSICAL EXAMINATION: Patient is resting comfortably in bed. VITAL SIGNS: Blood pressure is [107/59]. Heart rate is [76]. Respiration is [16] . Temperature is [97.0]. HEENT: Head is atraumatic, neck is supple, there were no carotid bruits. CHEST: Lungs are clear to auscultation and percussion. CARDIAC: S1, S2 normal rate and rhythm. There is no murmur. ABDOMEN: Soft and nontender. Bowel sounds are present. EXTREMITIES: There is no pedal edema. Peripheral pulses are present. Neurological examination: Patient has a nonfocal neurological examination today. - Labs CBC & Chem 7: 04/02/17 06:13 09 17:15 Labs: Abnormal Lab Results - Last 24 Hours (Table) 04/02/17 Range/Units 06:13 WBC 15.2 H (3.8-10.6) k/uL RBC 3.46 L (4.30-5.90) m/uL Hgb 9.6 L (13.0-17.5) gm/dL Hct 30.0 L (39.0-53.0) % RDW 16.5 H (11.5-15.5) % Neutrophils # 11.6 H (1.3-7.7) k/uL Assessment and Plan (1) Syncope and collapse Status: Acute Code(s): R55 - SYNCOPE AND COLLAPSE (2) AICD (automatic cardioverter/defibrillator) present Status: Acute Code(s): Z95.810 - PRESENCE OF AUTOMATIC (IMPLANTABLE) CARDIAC DEFIBRILLATOR (3) Cardiomyopathy Status: Acute Code(s): I42.9 - CARDIOMYOPATHY, UNSPECIFIED (4) TIA (transient ischemic attack) Status: Acute Code(s): G45.9 - TRANSIENT CEREBRAL ISCHEMIC ATTACK, UNSPECIFIED (5) Tremor Status: Acute Code(s): R25.1 - TREMOR, UNSPECIFIED Plan: This patient is a 86-year-old gentleman who was admitted to hospital today with episode of syncope and collapse. He was outdoors walking to his garden tractor when he apparently became lightheaded and collapsed. He was unresponsive only for a few seconds. He felt very weak and tired. He was brought into the emergency room where he was further evaluated. He had evidence of severe anemia. He was admitted to hospital for further management. His hemoglobin on admission was 5.2. He is being given blood transfusion at this time. The patient's neurological examination is nonfocal. This patient has suffered an acute vasovagal syncope secondary to severe anemia. His computed tomography scan of the brain failed to reveal any acute changes. He does have history of atrial fibrillation and is currently on Xarelto. He should be monitored for acute GI bleeding. The patient was seen by general surgery today. There is scheduling him for colonoscopy procedure on Monday. He was given 4 units of packed red blood cells and his hemoglobin today is 9.1. His recent syncopal episode likely due to his severe anemia. We will await further recommendations from cardiology. Neurological examination today is nonfocal. He denies any recurrent episodes of syncope today. His hemoglobin today is 9.1. He remains asymptomatic with no recurrent syncope. He has been up and ambulating in his room without difficulties. Patient is scheduled to undergo colonoscopy and EGD on Monday. Patient will likely be discharged home tomorrow after these procedures are completed. He continues to do well overall in the hospital and should remain off of Xarelto due to his recent GI bleeding symptoms. He is to follow-up with cardiology. We will continue close neurological follow-up for this patient. Patient underwent a routine EEG which was reviewed and is negative for any evidence of epileptic discharge. We will continue close neurological follow-up of this patient during this admission. His overall prognosis at this time remains very guarded.
[2017-04-02] MEDS: LOSARTAN 25 MG TAB PO SCH (21:14)
[2017-04-02] MEDS: DIGOXIN 125 MCG TAB PO SCH (21:14)
[2017-04-02] MEDS: HYDROcodone/APAP 5-325MG 1 EACH TAB PO SCH ×2 (21:14→23:46)
[2017-04-02] MEDS: TAMSULOSIN 0.4 MG CAP.ER.24H PO SCH (21:15)
[2017-04-03] MEDS: LEVOTHYROXINE 88 MCG TAB PO SCH (02:10)
[2017-04-03] MEDS: CARVEDILOL 3.125 MG TAB PO SCH ×2 (02:10→16:35)
[2017-04-03] MEDS ORDERED: LACTATED RINGERS 1,000 ML IV ONE (09:59)
[2017-04-03] MEDS ORDERED: PROPOFOL 10 MG/ML 20 ML VIAL IV ONE (09:59)
[2017-04-03] MEDS ORDERED: LIDOCAINE 1% INJ 10MG/ML (20 ML MDV) ONE (09:59)
--- NOTE | 2017-04-03 10:33 | P.OP ---
Date of Procedure: 04/03/17 Preoperative Diagnosis: GI bleed Postoperative Diagnosis: Antral gastritis Large hiatal hernia Esophagitis Internal and external hemorrhoids Mild diverticular changes Procedure(s) Performed: EGD Colonoscopy Anesthesia: MAC Surgeon: Wayne Macias Pathology: other (Antrum, esophagus) Condition: stable Disposition: PACU Description of Procedure: Patient's placed on the endoscopy table in the lateral position. He received IV sedation. The gastroscope placed oropharynx passed into the esophagus and stomach. The scope was then placed through the pylorus. The first and second portion of the duodenum appeared normal. Scope was then brought back the antrum this. Mildly inflamed. A biopsies performed. The scope was unretroflexed and remainder stomach appeared number. There was a large hiatal hernia. The GE junction was at 38 cm. The distal esophagus. Mildly inflamed a biopsies performed. There is no evidence of any blood in the upper GI tract. Next digital rectal exam was performed and there was a large internal and external hemorrhoids noted the appeared to be some stigmata bleeding from the hemorrhoids. The flexible colonoscope was then placed patient anus passed throughout the entire colon. The bowel prep was poor. The cecum was visualized. However there is a large amount liquid stool. There is no blood in the cecum. There were no tumors seen however the prep was poor. The scope was withdrawn remainder the ascending transverse colon appeared normal. In the descending; was mild diverticular changes. There is no evidence of any tumors or polyps. There is no evidence of blood in the colon. The scope was then brought back the rectum and this appeared normal. Scope was withdrawn and internal and external hemorrhoids were noted. Scope was withdrawn for patient.
--- NOTE | 2017-04-03 11:40 | P.PN ---
Subjective Principal diagnosis: Near syncope This is an 86-year-old gentleman with history of nonischemic cardio myopathy and prior AICD implantation, hypertension, hyperlipidemia, paroxysmal atrial fibrillation who presented to the hospital following a near syncopal episode. Patient was found to be significantly anemic on admission with a hemoglobin of 5.2. He was seen in consultation by Dr. Rand yesterday who felt that the patient does not require any further cardiac workup at this time. He did have an echo performed last year which revealed an ejection fraction which came back to be normal. A cardiac catheterization in June revealed mild coronary artery disease. Patient had been taking Xarelto for anticoagulation. This is on hold. He is scheduled tomorrow to undergo EGD and colonoscopy. Hemoglobin this morning is 9.1. 04/03/2017 Patient seen and examined this morning, feeling well overall. Scheduled for EGD and colonoscopy today. The pressure 132/60 heart rate in the 70s. Hemoglobin 9.6 today. Objective - Vital Signs Vital signs: Vital Signs Temp 98.9 F 04/03/17 00:00 Pulse 74 04/03/17 08:00 Resp 16 04/03/17 08:00 BP 133/68 04/03/17 08:00 Pulse Ox 98 04/03/17 08:00 Intake & Output 04/02/17 04/03/17 04/03/17 18:59 06:59 18:59 Intake Total 426 30 200 Output Total 2 Balance 426 28 200 Weight 66 kg Intake: IV 10 30 200 0.9% NS FLUSH 10 Ml 10 30 Oral 416 Output: Urine 2 Other: Voiding Method Toilet Toilet Toilet # Voids 1 - Exam PHYSICAL EXAMINATION: HEENT: Head is atraumatic, normocephalic. Pupils equal, round. Neck is supple. There is no elevated jugular venous pressure. HEART EXAMINATION: Heart S1 S2 1 systolic murmur is heard. CHEST EXAMINATION: Lungs are clear to auscultation and precussion. No chest wall tenderness is noted on palpation or with deep breathing. ABDOMEN: Soft, nontender. Bowel sounds are heard. No organomegaly noted. EXTREMITIES: 2+ peripheral pulses with no evidence of peripheral edema and no calf tenderness noted. NEUROLOGIC patient is awake, alert and oriented -3. . - Labs CBC & Chem 7: 04/02/17 06:13 03/30/17 17:15 Assessment and Plan (1) Near syncope Status: Acute (2) Anemia Status: Acute (3) NICM (nonischemic cardiomyopathy) Status: Acute (4) AICD (automatic cardioverter/defibrillator) present Status: Acute (5) TIA (transient ischemic attack) Status: Acute Plan: From cardiology's perspective, we will recommend to continue to hold the patient 's xarelto. Syncope is likely secondary to anemia. No further cardiac workup needed at this time. Patient is scheduled to undergo EGD and colonoscopy today. Once the patient is discharged home from the hospital we will make a follow-up appointment with Dr. VC Young in the office. DNP note has been reviewed, I agree with a documented findings and plan of care. Patient was seen and examined.
[2017-04-03] MEDS: PANTOPRAZOLE 40 MG/10 ML VIAL IVP SCH ×2 (12:17→22:04)
[2017-04-03] MEDS: FERROUS SULFATE 325 MG TAB PO SCH (12:17)
[2017-04-03] MEDS: FUROSEMIDE 20 MG TAB PO SCH (12:18)
[2017-04-03] MEDS: ISOSORBIDE MONONITRATE ER 60 MG TAB.ER.24H PO SCH ×2 (12:18→22:02)
[2017-04-03] MEDS: HYDROcodone/APAP 5-325MG 1 EACH TAB PO SCH (22:00)
[2017-04-03] MEDS: TAMSULOSIN 0.4 MG CAP.ER.24H PO SCH (22:02)
[2017-04-03] MEDS: LOSARTAN 25 MG TAB PO SCH (22:02)
[2017-04-03] MEDS: DIGOXIN 125 MCG TAB PO SCH (22:02)
--- NOTE | 2017-04-03 22:13 | PN ---
PROGRESS NOTE SUBJECTIVE: 86-year-old white male with syncope, significant severe anemia, status post EGD, colonoscopy with no signs of bleeding. Hemoglobin has been stable. Check CBC in the morning. Vital signs stable. Afebrile. Cardiovascular S1, S2. Lungs clear. GI: Soft. Endoscopic showed bleeding hemorrhoids. No significant calcific cause was found. If the bleeding continues, will need to video scope. ASSESSMENT/PLAN: 1. Severe anemia status post blood transfusion times four units. No further bleeding was seen. 2. Syncope, unclear etiology. Follow up as an outpatient. 3. For discharge home sleep apnea machine for severe sleep apnea will be sent on this patient. MMODL / IJN: [id number] /
[2017-04-04] MEDS: CARVEDILOL 3.125 MG TAB PO SCH (06:27)
[2017-04-04] MEDS: LEVOTHYROXINE 88 MCG TAB PO SCH (06:27)
[2017-04-04 06:45] LABS: Anisocytosis Slight; CH 28.3; CHCM 32.3; HCT 30.2 % (39.0-53.0); HDW 4.18; HGB 9.8 gm/dL (13.0-17.5); Hypochromasia Moderate; MCH 28.6 pg (25.0-35.0); MCHC 32.5 g/dL (31.0-37.0); MCV 88.1 fL (80.0-100.0); Mean Platelet Volume 7.8; Poikilocytosis Moderate; RBC 3.42 m/uL (4.30-5.90); RDW 16.8 % (11.5-15.5); WBC 11.6 k/uL (3.8-10.6)
[2017-04-04 07:02] LABS: Anion Gap 8 mmol/L; Blood Urea Nitrogen 16 mg/dL (9-20); Calcium 9.2 mg/dL (8.4-10.2); Carbon Dioxide 24 mmol/L (22-30); Chloride 108 mmol/L (98-107); Glucose 83 mg/dL (74-99); Non-African American GFR(MDRD) >60 (>60 ml/min/1.73 sqM); Potassium 4.4 mmol/L (3.5-5.1); Sodium 140 mmol/L (137-145)
[2017-04-04] MEDS: ISOSORBIDE MONONITRATE ER 60 MG TAB.ER.24H PO SCH (08:59)
[2017-04-04] MEDS: FUROSEMIDE 20 MG TAB PO SCH (08:59)
[2017-04-04] MEDS: PANTOPRAZOLE 40 MG/10 ML VIAL IVP SCH (09:00)
[2017-04-04 09:12] VITALS: BP 100/58; PULSE 82; RESP 16; TEMP 96.8
[2017-04-04 09:36] VITALS: BMI 23.1
[2017-04-04] MEDS: FERROUS SULFATE 325 MG TAB PO SCH (11:57)
--- NOTE | 2017-04-04 13:42 | P.PN ---
Subjective 86-year-old being seen in a follow-up visit status post EGD and colonoscopy done on the findings discussed with the patient it showed antral gastritis , esophagitis, large hiatal hernia, internal/external hemorrhoids. Hemoglobin this morning stable at 9.8. From a surgical perspective patient is felt to be stable and could be discharged defer to the timing of the discharge to internal medicine [facility] denying any dizziness lightheadedness chest pain or shortness of breath surgical service recommends that the patient Xarelto be held for at least 7 days Objective - Vital Signs Vital signs: Vital Signs Temp 96.8 F L 04/04/17 08:00 Pulse 82 04/04/17 08:00 Resp 16 04/04/17 08:00 BP 100/58 04/04/17 08:00 Pulse Ox 96 04/04/17 08:00 Intake & Output 04/03/17 04/04/17 04/04/17 18:59 06:59 18:59 Intake Total 616 180 Balance 616 180 Weight 65 kg 65 kg Intake: IV 200 Oral 416 180 Other: Voiding Method Toilet Toilet # Voids 2 1 2 - Exam Physical exam 86-year-old male heart hearing sitting appears in no acute distress Lungs adequate air movement bilaterally on room air Heart S1-S2 audible regular Abdomen soft nontender no reports of nausea vomiting extremities no edema noted - Labs CBC & Chem 7: 04/04/17 06:10 04/04/17 06:10 Labs: Abnormal Lab Results - Last 24 Hours (Table) 04/04/17 04/04/17 Range/Units 06:10 06:10 WBC 11.6 H (3.8-10.6) k/uL RBC 3.42 L (4.30-5.90) m/uL Hgb 9.8 L (13.0-17.5) gm/dL Hct 30.2 L (39.0-53.0) % RDW 16.8 H (11.5-15.5) % Chloride 108 H (98-107) mmol/L Assessment and Plan Plan: Impression Syncopal episode suspect due to acute blood loss anemia Present on admission syncopal collapse suspect due to acute blood loss anemia Chronic tremors Syncopal and collapse unclear etiology Automatic cardioverter defibrillator Paroxysmal atrial fibrillation on Xarelto Nonischemic cardiomyopathy status post AICD History of chronic constipation Echocardiogram March 31 left ventricular systolic function low normal EF 50- 55% with mild pulmonary hypertension Chronic systolic congestive heart failure no evidence of exacerbation heart catheterization June 2016 showed evidence of mild coronary artery disease Status post EGD and colonoscopy done April 03 showed atrophic gastritis, esophagitis, large hiatal hernia, internal and external hemorrhoids with no evidence of any bleed in the upper GI tract Plan Surgically patient is felt to be appropriate to be discharged home Xarelto on hold for at least 7 more days then restart IV hydration as ordered Resume home meds as appropriate GI and DVT prophylaxis Follow-up outpatient with surgical service as directed Further recommendations pending The above impression and plan of care have been discussed and directed by signing physician. Minoo Landin nurse practitioner acting as scribe for signing physician.
[2017-04-04] MEDS ORDERED: PANTOPRAZOLE 40 MG TABLET PO SCH (17:30)
--- NOTE | 2017-04-04 21:40 | P.PN ---
Subjective This patient is a 86-year-old right-handed white male who was admitted to hospital yesterday with symptoms of possible acute vasovagal syncope. Patient had a passing out spell at home. He was seen in neurology consultation yesterday and had evidence suggesting acute syncope likely secondary to severe anemia. His hemoglobin on admission yesterday was 5.2. He received 4 units of packed red blood cells and his hemoglobin this morning is 9.8. Patient is to undergo a colonoscopy procedure on Monday according to the nursing staff. He apparently had positive occult blood in his ptosis well. He does have a history of paroxysmal atrial fibrillation and had been on Xarelto for treatment. He was seen by cardiology today and his Xarelto was discontinued. The patient still complains of some symptoms of fatigue. Since likely secondary to his severe anemia. His EKG reveals normal sinus rhythm with a left bundle branch block. As noted cardiology is continuing to monitor him. He has a history of nonischemic cardiomyopathy and is status post AICD placement. Patient overall medical condition remains guarded given his multiple complex medical issues. He is resting comfortably today. He underwent a routine EEG which was reviewed and fails to reveal any evidence of epileptiform discharges. Patient underwent EGD and colonoscopy procedure yesterday. Results of the studies indicated antral gastritis, esophagitis, large hiatal hernia, and internal and external hemorrhoids. Results were reviewed once again with the patient today at bedside. His hemoglobin today is stable at 9.8. He is awaiting possible discharge home later today. He was taking Xarelto however this has been placed on hold at this time. We will await further recommendations from cardiology. We have reviewed all of these test results today with the patient in detail. We will continue close neurological follow-up of this patient during this admission. Objective - Vital Signs Vital signs: Vital Signs Temp 96.8 F L 04/04/17 08:00 Pulse 82 04/04/17 08:00 Resp 16 04/04/17 08:00 BP 100/58 04/04/17 08:00 Pulse Ox 96 04/04/17 08:00 Intake & Output 04/04/17 04/04/17 04/05/17 06:59 18:59 06:59 Intake Total 180 Balance 180 Weight 65 kg 65 kg Intake: Oral 180 Other: Voiding Method Toilet # Voids 1 2 - Exam Physical examination: PHYSICAL EXAMINATION: Patient is resting comfortably in bed. VITAL SIGNS: Blood pressure is [100/58]. Heart rate is [82]. Respiration is [16] . Temperature is [96.8]. HEENT: Head is atraumatic, neck is supple, there were no carotid bruits. CHEST: Lungs are clear to auscultation and percussion. CARDIAC: S1, S2 normal rate and rhythm. There is no murmur. ABDOMEN: Soft and nontender. Bowel sounds are present. EXTREMITIES: There is no pedal edema. Peripheral pulses are present. Neurological examination: Patient has a nonfocal neurological examination today. - Labs CBC & Chem 7: 04/04/17 06:10 04/04/17 06:10 Labs: Abnormal Lab Results - Last 24 Hours (Table) 04/04/17 04/04/17 Range/Units 06:10 06:10 WBC 11.6 H (3.8-10.6) k/uL RBC 3.42 L (4.30-5.90) m/uL Hgb 9.8 L (13.0-17.5) gm/dL Hct 30.2 L (39.0-53.0) % RDW 16.8 H (11.5-15.5) % Chloride 108 H (98-107) mmol/L Assessment and Plan (1) Syncope and collapse Status: Acute Code(s): R55 - SYNCOPE AND COLLAPSE (2) AICD (automatic cardioverter/defibrillator) present Status: Acute Code(s): Z95.810 - PRESENCE OF AUTOMATIC (IMPLANTABLE) CARDIAC DEFIBRILLATOR (3) Cardiomyopathy Status: Acute Code(s): I42.9 - CARDIOMYOPATHY, UNSPECIFIED (4) TIA (transient ischemic attack) Status: Acute Code(s): G45.9 - TRANSIENT CEREBRAL ISCHEMIC ATTACK, UNSPECIFIED (5) Tremor Status: Acute Code(s): R25.1 - TREMOR, UNSPECIFIED Plan: Patient continues to do very well today. He did undergo EGD and colonoscopy testing yesterday the results of which are noted above. The patient's hemoglobin today is 9.8. He was taking Xarelto however this is been placed on hold due to his severe anemia. His acute syncopal episode likely was secondary to the severe anemia. He is being considered for discharge home today. Rarely he is to remain off his Xarelto for the next 1 week. He should follow-up with his criminal court judge in terms of further treatment. His neurological examination today is nonfocal. He is being considered for discharge home today. We will continue close neurological follow-up for the patient. He may schedule a follow -up in the outpatient neurology clinic in 3-4 weeks. His overall prognosis at this time remains guarded.
--- NOTE | 2017-05-08 18:41 | HP ---
HISTORY AND PHYSICAL CHIEF COMPLAINT: 86-year-old, with history of nonischemic cardiomyopathy, status post AICD, pacemaker, hypertension, dyslipidemia, paroxysmal atrial fibrillation, is admitted due to dizziness and near syncope. It has been worsening over the past few days to the point he was severe anemic and admitted. He was given some blood transfusion. His hemoglobin up to 5.4, he has some dark-colored stool. He was admitted and given a blood transfusion. Awaiting cardiology consultation and Gastroenterology consultation for severe anemia. REVIEW OF SYSTEM: Fourteen point review of systems negative except for mentioned in HPI. PAST MEDICAL HISTORY: Atrial fibrillation, coronary disease, chest pain, angina, GERD, hypothyroidism, rotator cuff, tenderness of the left shoulder, AICD, cardiomyopathy, paraesophageal hiatal hernia, left knee pain, macular degeneration and urinary incontinence, orthopedic surgery, tonsillectomy, heart catheterization. He had an EGD 02/27/2014. FAMILY HISTORY: Mother with blood disorder, coronary artery disease. Daughter with cancer leukemia. Father with coronary artery disease. HOME MEDICATIONS: Uroxatral, Lanoxin, Coreg, Imdur, Synthroid, Antivert, Mobic, Xarelto, Lasix, Feosol, Cozaar, Nitrostat, [place], Requip and [place]. ALLERGIES: RANEXA. PHYSICAL EXAM: Temp 97, pulse is 90s to 80s, respiratory 16 to 18, blood pressures 90s to 120s over 70s to 80s, O2 97 to 98% on room air. General: He is alert and oriented. Skin is warm, dry. Pupils equal, round, reactive to light and accommodation. External ear canals within normal limits. Skin: He appears pale. HEART: Regular rate and rhythm. LUNGS: Decreased breath sounds. GI: Soft. Mild epigastric tenderness. No guarding. Back: Normal range of motion x4. Vascular normal dorsalis pedis, posterior radial pulse. Neurologic: Cranial nerves are intact. Hemoglobin was 6.8 on admission. White count is 9.4, sodium 137, potassium 4.3. ASSESSMENT: 1. Syncope secondary to severe anemia and gastrointestinal bleed. 2. Ischemic cardiomyopathy status post AICD. 3. Paroxysm atrial fibrillation. PLAN: 1. We will stop the blood thinners at this time. Cardiac consult. Cardiology for blood thinner recommendations. 2. Gastroenterology consultation for gastrointestinal bleed. Possible blood transfusion will be given. IV iron will be given. MMODL / IJN: [id number] /
--- NOTE | 2017-05-09 06:28 | DS ---
DISCHARGE SUMMARY ADMITTED: 03/30/2017. DISCHARGE: 04/04/2017. DISCHARGE MEDICATIONS: Lanoxin 125 mcg daily. Uroxatral 10 mg daily, Xarelto 15 mg daily. Antivert 12.5 q.8 hours p.r.n., Mobic 7.5 daily, Synthroid 88 mg mcg daily, Imdur 60 mg b.i.d. Coreg 3.125 b.i.d. Lasix 10 mg daily. Requip 3 mg daily. Nitrostat 0.4 mg sublingual p.r.n. Cozaar 25 daily, iron sulfate 325 daily. Stiolto 2 puffs daily [place] 5/325 daily. CONDITION: Stable. PROGNOSIS: Guarded. Ambulate as tolerated. DISCHARGE DIAGNOSIS: 1. Severe anemia. 2. Syncope secondary to severe anemia. 3. AICD. 4. Hypertension. 5. Atherosclerotic heart disease. 6. Transient ischemic attack. 7. Tremor. 8. Cardiomyopathy. 9. Possible vasovagal syncope. 10.Atrial fibrillation. Paroxysmal which should only be sent home on aspirin due to gastrointestinal bleeding. He had endoscopies performed which showed no signs of any significant bleeding at which time he was discharged home to be stabilized as an outpatient. MMODL / IJN: [id number] /
== END 2017-04-04 15:42 | disposition home or self-care (01) | DRG 378 ==
LOC: 6SEL 15:32
PROVIDERS: ADMIT Family Medicine; ATTEND Family Medicine
PROC: 30233N1 Transfusion of Nonautologous Red Blood Cells into Peripheral Vein, Percutaneous Approach (ICD-10-PCS; 2017-03-30)
PROC: 0DB78ZX Excision of Stomach, Pylorus, Via Natural or Artificial Opening Endoscopic, Diagnostic (ICD-10-PCS; 2017-04-03)
PROC: 0DJD8ZZ Inspection of Lower Intestinal Tract, Via Natural or Artificial Opening Endoscopic (ICD-10-PCS; 2017-04-03)
PROC: 0DB58ZX Excision of Esophagus, Via Natural or Artificial Opening Endoscopic, Diagnostic (ICD-10-PCS; principal; 2017-04-03 12:20)
DX: K92.2 Gastrointestinal hemorrhage, unspecified (principal); I42.9 Cardiomyopathy, unspecified; I50.22 Chronic systolic (congestive) heart failure; I11.0 Hypertensive heart disease with heart failure; D62 Acute posthemorrhagic anemia; G45.9 Transient cerebral ischemic attack, unspecified; I27.2 Other secondary pulmonary hypertension; I48.0 Paroxysmal atrial fibrillation; I44.7 Left bundle-branch block, unspecified; E78.5 Hyperlipidemia, unspecified; I25.10 Atherosclerotic heart disease of native coronary artery without angina pectoris; K21.0 Gastro-esophageal reflux disease with esophagitis; E03.9 Hypothyroidism, unspecified; K44.9 Diaphragmatic hernia without obstruction or gangrene; R25.1 Tremor, unspecified; H40.9 Unspecified glaucoma; H35.30 Unspecified macular degeneration; R32 Unspecified urinary incontinence; R29.6 Repeated falls; K29.60 Other gastritis without bleeding; K64.8 Other hemorrhoids; K64.4 Residual hemorrhoidal skin tags; K57.30 Diverticulosis of large intestine without perforation or abscess without bleeding; T45.515A Adverse effect of anticoagulants, initial encounter; K29.40 Chronic atrophic gastritis without bleeding; G47.30 Sleep apnea, unspecified; K59.09 Other constipation; I25.2 Old myocardial infarction; H91.90 Unspecified hearing loss, unspecified ear; Z79.01 Long term (current) use of anticoagulants; Z79.891 Long term (current) use of opiate analgesic; Z79.1 Long term (current) use of non-steroidal anti-inflammatories (NSAID); Z79.899 Other long term (current) drug therapy; Z95.810 Presence of automatic (implantable) cardiac defibrillator; Z91.81 History of falling; Z98.42 Cataract extraction status, left eye; Z98.41 Cataract extraction status, right eye; Z87.891 Personal history of nicotine dependence; Z86.010 Personal history of colon polyps; Z86.79 Personal history of other diseases of the circulatory system; Z71.3 Dietary counseling and surveillance; Z86.69 Personal history of other diseases of the nervous system and sense organs; Z88.8 Allergy status to other drugs, medicaments and biological substances; Z82.49 Family history of ischemic heart disease and other diseases of the circulatory system
CPT/HCPCS: 43239; 70450; 71020; 74176; 80048; 82272; 84484; 85025; 85027; 85379; 86850; 86900; 86901; 86920; 88305; 88342; 93306; 93880; 95819

== ENCOUNTER 2017-07-31 21:05 | Emergency (ER) | payer MEDICARE ==
[2017-07-31 21:27] VITALS: BP 138/63; PULSE 78; RESP 20
[2017-07-31] MEDS ORDERED: ACETAMINOPHEN TAB 325 MG TAB PO STA (21:35)
--- NOTE | 2017-07-31 21:55 | XR ---
EXAMINATION TYPE: XR chest 2V DATE OF EXAM: 07/31/2017 COMPARISON: 03/30/2017 HISTORY: Cough TECHNIQUE: Frontal and lateral views of the chest are obtained. FINDINGS: Heart and mediastinum are normal. Lungs are clear. There is no heart failure. There is lef t axillary pacemaker with the lead tip in the right ventricle. There is no pleural effusion. Bony tho rax show some osteopenia. There is slight anterior wedging of a few thoracic vertebra. IMPRESSION: No active cardiopulmonary disease. There is improved inspiration compared to old exam. N o heart failure.
[2017-07-31] MEDS ORDERED: OSELTAMIVIR 75 MG CAP PO STA (22:23)
--- NOTE | 2017-07-31 22:26 | ED ---
URI HPI - General Chief Complaint: Upper Respiratory Infection Stated Complaint: flu symptoms Time Seen by Provider: 07/31/17 21:31 Source: patient, RN notes reviewed Mode of arrival: ambulatory Limitations: no limitations - History of Present Illness Initial Comments: 86-year-old male presents emergency Department chief complaint fever congestion , started today. Patient states that he took Tylenol around noon. Patient states his cough is dry and nonproductive. He does admit to some body aches. Patient denies any chest pain or shortness of breath. Patient states that he has a slight rhinorrhea or sore throat, ear pain. Patient states that his also has some her symptoms and has had a fever. - Related Data Home Medications Medication Instructions Recorded Confirmed Alfuzosin HCl [Uroxatral] 10 tab PO HS 03/05/14 07/31/17 Digoxin [Lanoxin] 125 mcg PO HS 03/05/14 07/31/17 Carvedilol [Coreg] 3.125 mg PO BID 07/06/16 07/31/17 Isosorbide Mononitrate ER [Imdur] 60 mg PO BID 07/06/16 07/31/17 Levothyroxine Sodium [Synthroid] 88 mcg PO DAILY 07/06/16 07/31/17 Meclizine [Antivert] 12.5 mg PO Q8HR PRN 07/06/16 07/31/17 Furosemide [Lasix] 10 mg PO DAILY 07/08/16 07/31/17 Ferrous Sulfate [Feosol] 325 mg PO DAILY 02/24/17 07/31/17 Losartan [Cozaar] 25 mg PO HS 02/24/17 07/31/17 Nitroglycerin Sl Tabs [Nitrostat] 0.4 mg SUBLINGUAL Q5M PRN 02/24/17 07/31/17 Tiotropium Br/Olodaterol HCl 2 puff INHALATION RT-DAILY 02/24/17 07/31/17 [Stiolto Respimat Inhal [place]] rOPINIRole HCL [Requip] 3 mg PO HS 02/24/17 07/31/17 HYDROcodone/APAP 5-325MG [[place] 5] 1 tab PO HS 03/30/17 07/31/17 Aspirin 325 mg PO DAILY 07/31/17 07/31/17 metFORMIN HCL [Glucophage] 500 mg PO DAILY 07/31/17 07/31/17 Previous Rx's Medication Instructions Recorded Oseltamivir [Tamiflu] 75 mg PO Q12HR #10 cap 07/31/17 Allergies Allergy/AdvReac Type Severity Reaction Status Date / Time ranolazine [From Ranexa] Allergy Severe Seizures Verified 07/31/17 21:42 Review of Systems ROS Statement: Those systems with pertinent positive or pertinent negative responses have been documented in the HPI. ROS Other: All systems not noted in ROS Statement are negative. Past Medical History Past Medical History: Atrial Fibrillation, Coronary Artery Disease (CAD) Additional Past Medical History / Comment(s): C/O LT SHOUDER PAIN AND DECREASE ROM. AICD (medtronic placed at [facility] in 2008), cardiomyopathy, gastritis, paraesophageal hiatal hernia,left knee pain with scheduled injections for pain, FALLS. HIATAL HERNIA,GLAUCOMA, MACULAR DEGENERATION, URINARY INCONT. EPISODIC BLURRY VISION. WAITING ON DELIVERY OF CPAP MACHINE. History of Any Multi-Drug Resistant Organisms: None Reported Past Surgical History: AICD, Heart Catheterization, Orthopedic Surgery, Tonsillectomy Additional Past Surgical History / Comment(s): AICD placed twice both at [facility]- in 1999 and 2008, PTCA November of 1999, hydrocelectomy, EGDs with last one benign EGD with Bx along antrum which pt stated was benign, colonoscopy with polypectomy, bilateral cataract removal; left knee sx "shaved cartilage", stress test, haert cath -no stents. Past Anesthesia/Blood Transfusion Reactions: No Reported Reaction Type of Cardiac Device: AICD Device Placement Date:: 2008 Past Psychological History: No Psychological Hx Reported Smoking Status: Never smoker Past Alcohol Use History: None Reported Past Drug Use History: None Reported - Past Family History Mother History Unknown: Yes Family Medical History: Blood Disorder, Coronary Artery Disease (CAD) Additional Family Medical History / Comment(s): Von Willebrand Daughter(s) Family Medical History: Cancer Additional Family Medical History / Comment(s): leukemia Father History Unknown: Yes Family Medical History: Coronary Artery Disease (CAD) Additional Family Medical History / Comment(s): Father was healthy General Exam Limitations: no limitations General appearance: alert, in no apparent distress Head exam: Present: atraumatic, normocephalic, normal inspection Eye exam: Present: normal appearance, PERRL, EOMI. Absent: scleral icterus, conjunctival injection, periorbital swelling ENT exam: Present: normal exam, normal oropharynx, mucous membranes moist, TM's normal bilaterally, normal external ear exam Neck exam: Present: normal inspection, full ROM. Absent: tenderness, meningismus, lymphadenopathy Respiratory exam: Present: normal lung sounds bilaterally. Absent: respiratory distress, wheezes, rales, rhonchi, stridor Cardiovascular Exam: Present: regular rate, normal rhythm, normal heart sounds. Absent: systolic murmur, diastolic murmur, rubs, gallop, clicks Course Vital Signs 07/31/17 21:23 Temperature 99.9 F H Pulse Rate 78 Respiratory 20 Rate Blood Pressure 138/63 O2 Sat by Pulse 98 Oximetry Medical Decision Making - Medical Decision Making 86-year-old male presented for fever cough congestion started today. Patient's influenza testing is negative though patient's significant other is positive today for influenza B. This most likely is influenza was started on Tamiflu. I did recommend follow-up with care physician for recheck and return for any worsening of symptoms or any other concerns. - Lab Data Lab Results 07/31/17 Range/Units 21:37 Influenza Type A RNA Not Detected (Not Detectd) Influenza Type B (PCR) Not Detected (Not Detectd) Disposition Clinical Impression: Influenza Disposition: HOME SELF-CARE Condition: Stable Instructions: Influenza (ED) Additional Instructions: Please return to the Emergency Department if symptoms worsen or any other concerns. Prescriptions: Oseltamivir [Tamiflu] 75 mg PO Q12HR #10 cap Referrals: Hernán Bansal MD [Primary Care Provider] - 1-2 days Time of Disposition: 22:26
[2017-07-31 22:35] VITALS: TEMP 98.7
== END 2017-07-31 22:34 | disposition home or self-care (01) ==
LOC: EC 21:05
DX: J10.1 Influenza due to other identified influenza virus with other respiratory manifestations (principal); I48.91 Unspecified atrial fibrillation; I25.10 Atherosclerotic heart disease of native coronary artery without angina pectoris; Z79.82 Long term (current) use of aspirin; Z79.84 Long term (current) use of oral hypoglycemic drugs; Z79.891 Long term (current) use of opiate analgesic; Z79.899 Other long term (current) drug therapy; Z88.8 Allergy status to other drugs, medicaments and biological substances; Z87.39 Personal history of other diseases of the musculoskeletal system and connective tissue
CPT/HCPCS: 71046; 87502; 99283

== ENCOUNTER → 2017-08-17 | Outpatient (CLI) | payer MEDICARE ==
[2017-08-17 13:50] LABS: HCT 31.7 % (39.0-53.0); HGB 10.1 gm/dL (13.0-17.5); MCH 27.7 pg (25.0-35.0); MCHC 31.9 g/dL (31.0-37.0); MCV 86.9 fL (80.0-100.0); Mean Platelet Volume 7.4; Platelet Count 257 k/uL (150-450); RBC 3.64 m/uL (4.30-5.90); RDW 15.7 % (11.5-15.5); WBC 9.1 k/uL (3.8-10.6)
[2017-08-17 14:15] LABS: Anion Gap 10 mmol/L; Blood Urea Nitrogen 24 mg/dL (9-20); Calcium 9.8 mg/dL (8.4-10.2); Carbon Dioxide 28 mmol/L (22-30); Chloride 103 mmol/L (98-107); Glucose 86 mg/dL (74-99); Potassium 4.7 mmol/L (3.5-5.1); Sodium 141 mmol/L (137-145)
== END | disposition home or self-care (01) ==
LOC: LABWHC1 13:01
PROVIDERS: ATTEND Internal Medicine Clinical Cardiac Electrophysiology
DX: I48.1 Persistent atrial fibrillation (principal); I42.0 Dilated cardiomyopathy; I25.10 Atherosclerotic heart disease of native coronary artery without angina pectoris; Z95.810 Presence of automatic (implantable) cardiac defibrillator
CPT/HCPCS: 36415; 80048; 85027

== ENCOUNTER 2017-08-22 12:12 | Day surgery (SDC) | payer MEDICARE ==
[2017-08-15 15:55] VITALS: BMI 24.8
[~2017-08-22 12:12] MED LIST: LACTATED RINGERS 1,000 ML IV SCH; SODIUM CHLORIDE 0.9% 1,000 ML IV SCH; ceFAZolin 1,000 MG in SODIUM CHLORIDE 0.9% IRRIGATIO 250 ML IRRIGATION ONE; ceFAZolin IN SWFI 2 GM/20 ML SYRINGE IVP ONE
[2017-08-22 13:21] LABS: Glucose,Whole Blood 90 mg/dL (75-99)
[2017-08-22] MEDS ORDERED: IV FLUID CONTINUATION 1,000 ML IV ONE (15:16)
[2017-08-22] MEDS ORDERED: LIDOCAINE 2% INJ 20 MG/ML SQ ONE (15:59)
[2017-08-22] MEDS ORDERED: ACETAMINOPHEN TAB 325 MG TAB PO PRN (16:57)
[2017-08-22] MEDS ORDERED: HYDROcodone/APAP 5-325MG 1 EACH TAB PO PRN (16:57)
[2017-08-22] MEDS ORDERED: ACETAMINOPHEN IV (For NPO) 1,000 MG in EMPTY BAG 1 BAG IVPB ONE (17:15)
--- NOTE | 2017-08-22 17:54 | CE ---
CARDIAC ELECTROPHYSIOLOGY REPORT This is an 87-year-old male patient who has a history of a dual-chamber ICD implanted originally for secondary prevention of sudden cardiac . 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 At that time he had nonischemic cardiomyopathy and left bundle branch block. Currently his QRS width is 159 milliseconds. He has nonobstructive CAD and class 3 CHF at this time. Patient was brought to the EP lab in a fasting state. Written informed consent was obtained prior to the procedure. Cinefluoroscopy of the leads was performed. No fractures or breaks were noted. He has a dual-chamber ICD. The left pectoral area was prepped and draped as per protocol. An incision was made directly over the device and carried down to the level of the generator. The dual-chamber ICD was explanted and a new dual-chamber ICD was implanted. Partial capsulectomy was performed and the new device was secured to the underlying pectoralis muscle. The atrial lead was a Medtronic model #6940, serial number [id number]. P waves were 1.5 mV, pacing impedance 400 ohms, pacing threshold 0.75 V at 0.5 milliseconds. The ICD lead was a dual coil lead, Medtronic model #6942, serial number [id number]. R- waves 12 mitral valve, pacing impedance 340 ohms, pacing threshold 0.75 V at 0.5 milliseconds. The chronic generator explanted was a Medtronic model number H767CJS, serial number [id number]. The new generator implanted was a [employer] model number [id number]- [id number], serial numbness [id number]. Leads and generator were then placed in the subfascial pocket and the device secured to the underlying pectoralis muscle. The wound was closed in 3 layers and dressed per protocol. RESULT: Successful dual-chamber ICD generator change for secondary prevention of sudden cardiac in a gentleman who had reproducibly inducible polymorphic VT/VF at EP study in the past. SUGGEST: Continue beta blockers. Continue angiotensin receptor blockers/MURALI inhibitors. MMODL / IJN: [id number] /
[2017-08-22 20:46] LABS: Glucose,Whole Blood 130 mg/dL (75-99)
[2017-08-22] MEDS ORDERED: TAMSULOSIN 0.4 MG CAP.ER.24H PO SCH (22:30)
[2017-08-22] MEDS ORDERED: LOSARTAN 25 MG TAB PO SCH (22:30)
[2017-08-22] MEDS ORDERED: DIGOXIN 125 MCG TAB PO SCH (22:30)
[2017-08-22] MEDS: ceFAZolin IN SWFI 2 GM/20 ML SYRINGE IVP SCH (22:47)
[2017-08-22] MEDS: CARVEDILOL 3.125 MG TAB PO SCH (23:33)
[2017-08-22] MEDS: ISOSORBIDE MONONITRATE ER 60 MG TAB.ER.24H PO SCH (23:33)
[2017-08-23] MEDS: ceFAZolin IN SWFI 2 GM/20 ML SYRINGE IVP SCH ×3 (05:00→15:38)
[2017-08-23] MEDS ORDERED: LEVOTHYROXINE 88 MCG TAB PO SCH (06:30)
[2017-08-23 07:09] LABS: Glucose,Whole Blood 97 mg/dL (75-99)
[2017-08-23 08:01] VITALS: RESP 18
--- NOTE | 2017-08-23 08:25 | P.DS ---
Providers Attending physician: Alan Alva Primary care physician: [facility] Course: Patient is doing well. He is sitting at the edge of the bed eating breakfast. Denies any chest discomfort no dizziness lightheadedness or palpitations On examination he is afebrile 98.1F, pulse rate in the 70s, normal respirations blood pressure 109/59 mmHg Heart sounds are normal normal S1 normal S2 Breath sounds are clear no rhonchi no crackles Abdomen is soft ICD generator change site is healed well there is no hematoma Impression Dual-chamber ICD at [facility] Original indication at [facility] was inducible ventricular tachyarrhythmia, reproducibly induced at EP study by Known coronary artery disease, nonobstructive Bundle-branch block morphology, 159 ms QRS width Nonischemic cardio myopathy, CHF class III ICD for secondary prevention of sudden cardiac , history of reproducibly inducible polymorphic VT/VF at EP study Plan Continue medical treatment IV antibiotics Patient Condition at Discharge: Stable Plan - Discharge Summary Discharge Rx Participant: Yes New Discharge Prescriptions: New Pravastatin Sodium [Pravachol] 10 mg PO DAILY #90 tab Continue RX: Digoxin [Lanoxin] 125 mcg PO HS RX: Alfuzosin HCl [Uroxatral] 10 tab PO HS RX: Meclizine [Antivert] 12.5 mg PO Q8HR PRN PRN Reason: Vertigo RX: Levothyroxine Sodium [Synthroid] 88 mcg PO DAILY RX: Isosorbide Mononitrate ER [Imdur] 60 mg PO BID RX: Carvedilol [Coreg] 3.125 mg PO BID RX: Furosemide [Lasix] 10 mg PO DAILY RX: rOPINIRole HCL [Requip] 3 mg PO HS RX: Nitroglycerin Sl Tabs [Nitrostat] 0.4 mg SUBLINGUAL Q5M PRN PRN Reason: Chest Pain RX: Losartan [Cozaar] 25 mg PO HS RX: Tiotropium Br/Olodaterol HCl [Stiolto Respimat Inhal Walker] 2 puff INHALATION RT-DAILY RX: metFORMIN HCL [Glucophage] 500 mg PO DAILY RX: Aspirin 325 mg PO DAILY RX: Ibuprofen [Motrin Ib] 200 mg PO BID PRN PRN Reason: Pain Discharge Medication List RX: Alfuzosin HCl [Uroxatral] 10 tab PO HS 03/05/14 [History] RX: Digoxin [Lanoxin] 125 mcg PO HS 03/05/14 [History] RX: Carvedilol [Coreg] 3.125 mg PO BID 07/06/16 [History] RX: Isosorbide Mononitrate ER [Imdur] 60 mg PO BID 07/06/16 [History] RX: Levothyroxine Sodium [Synthroid] 88 mcg PO DAILY 07/06/16 [History] RX: Meclizine [Antivert] 12.5 mg PO Q8HR PRN 07/06/16 [History] RX: Furosemide [Lasix] 10 mg PO DAILY 07/08/16 [History] RX: Losartan [Cozaar] 25 mg PO HS 02/24/17 [History] RX: Nitroglycerin Sl Tabs [Nitrostat] 0.4 mg SUBLINGUAL Q5M PRN 02/24/17 [ History] RX: Tiotropium Br/Olodaterol HCl [Stiolto Respimat Inhal Walker] 2 puff INHALATION RT-DAILY 02/24/17 [History] RX: rOPINIRole HCL [Requip] 3 mg PO HS 02/24/17 [History] RX: Aspirin 325 mg PO DAILY 07/31/17 [History] RX: metFORMIN HCL [Glucophage] 500 mg PO DAILY 07/31/17 [History] RX: Ibuprofen [Motrin Ib] 200 mg PO BID PRN 08/15/17 [History] Pravastatin Sodium [Pravachol] 10 mg PO DAILY #90 tab 08/22/17 [Rx] Follow up Appointment(s)/Referral(s): Kaylah Young MD [STAFF PHYSICIAN] - 6 Weeks Activity/Diet/Wound Care/Special Instructions: Keep wound dry for 5 days. Follow with the device clinic in [address] VC Young as scheduled Discharge Disposition: HOME SELF-CARE
[2017-08-23] MEDS: CARVEDILOL 3.125 MG TAB PO SCH (09:20)
[2017-08-23] MEDS: ISOSORBIDE MONONITRATE ER 60 MG TAB.ER.24H PO SCH (09:20)
[2017-08-23 11:26] VITALS: BP 99/50; PULSE 68; TEMP 97.9
[2017-08-23 11:51] LABS: Glucose,Whole Blood 96 mg/dL (75-99)
== END 2017-08-23 16:31 | disposition home or self-care (01) ==
LOC: CATHEP 12:12 → 3OBS 16:42 → CATHEP 08-23 16:31
PROVIDERS: ATTEND Internal Medicine Clinical Cardiac Electrophysiology
DX: Z45.02 Encounter for adjustment and management of automatic implantable cardiac defibrillator (principal); I25.118 Atherosclerotic heart disease of native coronary artery with other forms of angina pectoris; I48.1 Persistent atrial fibrillation; I11.0 Hypertensive heart disease with heart failure; I50.9 Heart failure, unspecified; I42.0 Dilated cardiomyopathy; I44.7 Left bundle-branch block, unspecified; I49.5 Sick sinus syndrome; E78.5 Hyperlipidemia, unspecified; J44.9 Chronic obstructive pulmonary disease, unspecified; K21.9 Gastro-esophageal reflux disease without esophagitis; I25.2 Old myocardial infarction; Z86.73 Personal history of transient ischemic attack (TIA), and cerebral infarction without residual deficits; Z79.1 Long term (current) use of non-steroidal anti-inflammatories (NSAID); Z79.84 Long term (current) use of oral hypoglycemic drugs; Z79.82 Long term (current) use of aspirin; Z79.51 Long term (current) use of inhaled steroids; Z79.890 Hormone replacement therapy; Z79.899 Other long term (current) drug therapy; Z88.8 Allergy status to other drugs, medicaments and biological substances; Z87.891 Personal history of nicotine dependence
CPT/HCPCS: 33263; C1721; J2001; J0690 ×2

== ENCOUNTER → 2017-10-25 | Outpatient (CLI) | payer MEDICARE ==
[~2017-10-25] MED LIST changes: -LACTATED RINGERS 1,000 ML IV SCH; +REGADENOSON 0.4 MG/5 ML SYRINGE IV ONE; -SODIUM CHLORIDE 0.9% 1,000 ML IV SCH; -ceFAZolin 1,000 MG in SODIUM CHLORIDE 0.9% IRRIGATIO 250 ML IRRIGATION ONE; -ceFAZolin IN SWFI 2 GM/20 ML SYRINGE IVP ONE
--- NOTE | 2017-10-25 11:54 | NM ---
EXAMINATION TYPE: NM stress lexiscan cardiolite DATE OF EXAM: 10/25/2017 COMPARISON: Nuclear medicine cardiac Lexiscan stress test July 07, 2016. HISTORY: History of tobacco use quit 40 years ago, family history of heart attack, personal history o f diabetes, cholesterolemia, COPD, and prior heart attack with catheterization presents with chest pa in and difficulty breathing and palpitations per patient. Coronary artery disease per order. TECHNIQUE: After the intravenous administration of 10.4 mCi Tc 99m Sestamibi - Cardiolite resting SP ECT images acquired 45 minutes post injection. The patient received 0.4mg Lexiscan, 25.6 mCi Tc 99m Sestamibi - Stress images obtained [address] injection FINDINGS: Review of stress and rest SPECT images demonstrates persistent areas of diminished uptake on stress a nd rest images towards the apex involving inferoseptal wall suspicious for old infarct. There is no c onvincing evidence for reversible ischemia Gated analysis shows normal wall motion with an estimated left ventricular ejection fraction of 85 %. IMPRESSION: No scintigraphic evidence for reversible ischemia on current study. Favor redemonstration of old infa rct. No significant change from prior.
--- NOTE | 2017-10-26 08:27 | ECHOF ---
Referral Reason:I25 CAD MEASUREMENTS -------- HEIGHT: 167.6 cm WEIGHT: 69.0 kg BP: 119/59 RVIDd: 2.6 cm (< 3.3) IVSd: 1.3 cm (0.6 - 1.1) LVIDd: 4.2 cm (3.9 - 5.3) LVPWd: 1.2 cm (0.6 - 1.1) IVSs: 1.8 cm LVIDs: 2.6 cm LVPWs: 1.6 cm LA Diam: 2.5 cm (2.7 - 3.8) LAESV Index (A-L): 24.08 ml/m Ao Diam: 2.9 cm (2.0 - 3.7) AV Cusp: 1.9 cm (1.5 - 2.6) LA Diam: 3.3 cm (2.7 - 3.8) MV EXCURSION: 12.495 mm (> 18.000) MV EF SLOPE: 103 mm/s (70 - 150) EPSS: 0.7 cm MV E Jerod: 0.71 m/s MV DecT: 249 ms MV A Jerod: 0.93 m/s MV E/A Ratio: 0.76 RAP: 5.00 mmHg RVSP: 26.34 mmHg FINDINGS -------- The left ventricular size is normal. There is borderline concentric left ventricular hypertrophy. Overall left ventricular systolic function is mildly impaired with, an EF between 45 - 50 %. Infer ior Hypokinesis Septal Hypokinesis The right ventricle is normal in size and function. Normal LA size by volume 22+/-6 ml/m2. The right atrium is normal in size. Electronic pacemaker lead seen in the right ventricular cavity. Aortic valve is trileaflet and is mildly thickened. There is no evidence of aortic regurgitation. There is no evidence of aortic stenosis. The mitral valve leaflets are mildly thickened. Mild mitral regurgitation is present. Trace tricuspid regurgitation present. Right ventricular systolic pressure is normal at < 35 mmHg. There is no evidence of pulmonary hypertension. The pulmonic valve was not well visualized. The aortic root size is normal. Normal inferior vena cava with normal inspiratory collapse consistent with estimated right atrial pre ssure of 5 mmHg. There is no pericardial effusion. CONCLUSIONS -------- 1. The left ventricular size is normal. 2. There is borderline concentric left ventricular hypertrophy. 3. Overall left ventricular systolic function is mildly impaired with, an EF between 45 - 50 %. 4. Inferior Hypokinesis 5. Septal Hypokinesis 6. Normal LA size by volume 22+/-6 ml/m2. 7. Electronic pacemaker lead seen in the right ventricular cavity. 8. Aortic valve is trileaflet and is mildly thickened. 9. The mitral valve leaflets are mildly thickened. 10. Mild mitral regurgitation is present. 11. Trace tricuspid regurgitation present. 12. Right ventricular systolic pressure is normal at < 35 mmHg. 13. There is no evidence of pulmonary hypertension. 14. The pulmonic valve was not well visualized. 15. The aortic root size is normal. 16. There is no pericardial effusion. MANAGER UNION: Varun Griggs RDCS
--- NOTE | 2017-10-26 09:24 | EST ---
EXERCISE STRESS DATE OF SERVICE: 10/25/2017 AGE: 87 SEX: Male HT: 66" WT: 152 pounds PROTOCOL: Lexiscan Cardiolite STAGE: DURATION OF EXERCISE: HEART RATE REST: 61 BLOOD PRESSURE REST: 143/66 MAXIMUM HEART RATE ACHIEVED: 77 MAXIMUM BLOOD PRESSURE: 143/66 85% MPHR: 114 100% MPHR: 134 METS: INDICATIONS: Coronary artery disease. CLINICAL INFORMATION: Baseline heart rate 61 beats per minute. Baseline blood [id number] mmHg. Baseline 12-lead ECG shows sinus rhythm with left bundle branch block pattern. The patient received Lexiscan infusion per protocol. There were no new ECG changes noted during Lexiscan infusion. Heart rate and blood pressure remained stable. Nuclear portion of the stress test will be reported separately. MMODL / IJN: [id number] /
== END | disposition home or self-care (01) ==
LOC: RADNMMAIN 09:11
PROVIDERS: ATTEND Family Medicine
DX: I20.9 Angina pectoris, unspecified (principal); I25.10 Atherosclerotic heart disease of native coronary artery without angina pectoris
CPT/HCPCS: 93017; 93306; 78452; A9500; J2785

== ENCOUNTER → 2017-12-04 | Outpatient (CLI) | payer MEDICARE ==
--- NOTE | 2017-12-04 14:37 | XR ---
EXAMINATION TYPE: XR chest 2V DATE OF EXAM: 12/04/2017 COMPARISON: 07/31/2017 HISTORY: Shortness of breath TECHNIQUE: Frontal and lateral views of the chest are obtained. FINDINGS: Scattered senescent parenchymal changes noted. No evidence for infiltrate. No evidence for atelectasis. Heart size is stable. Mediastinal structures are stable and grossly unremarkable. No evidence for hilar prominence. Degenerative changes dorsal spine. IMPRESSION: 1. No evidence for acute pulmonary disease.
== END | disposition home or self-care (01) ==
LOC: RADXRMAIN 14:14
PROVIDERS: ATTEND Family Medicine
DX: R06.00 Dyspnea, unspecified (principal)
CPT/HCPCS: 71046

== ENCOUNTER → 2017-12-18 | Outpatient (CLI) | payer MEDICARE ==
--- NOTE | 2017-12-18 15:34 | CT ---
EXAMINATION TYPE: CT abdomen w con DATE OF EXAM: 12/18/2017 COMPARISON: NONE HISTORY: Abdominal pain CT DLP: 387.5 mGycm CONTRAST: CT scan of the abdomen is performed with Oral Contrast and with IV Contrast, patient injected with 10 0 mL of Isovue 300. FINDINGS: LUNG BASES-: No visible nodule. No infiltrate. LIVER/GB: No calcified gallstones. No space occupying hepatic lesion. Biliary tree is of normal ca liber. Mild hepatic steatosis. PANCREAS: No inflammation. No distinct mass. SPLEEN: No splenic enlargement. No lesion seen. ADRENALS: No nodule. No thickening. KIDNEYS/BLADDER: No hydronephrosis. No nephrolithiasis. Stable fullness of left kidney. The renal c ystic change measuring less than 1 cm on the left. Nonobstructing right-sided nephrolithiasis. Exophy tic cyst left kidney 1.9 cm. Subcentimeter cyst right kidney. No distinct solid mass appreciated. Urinary bladder grossly unremarkable. BOWEL: Normal appendix. Normal bowel caliber. No inflammation. LYMPH NODES: No greater than 1cm abdominal or pelvic lymph nodes are appreciated. AORTA: No significant abnormality. OSSEOUS STRUCTURES: No significant abnormality is seen. OTHER: Moderate fixed hiatal hernia. IMPRESSION: 1. Renal cystic changes without solid mass. 2. No acute intra-abdominal process. Moderate fecal stasis noted. 3. Mild hepatic steatosis. 4. Moderate fixed hiatal hernia.
== END | disposition home or self-care (01) ==
LOC: RADCTMAIN 13:20
PROVIDERS: ATTEND Family Medicine
DX: N28.1 Cyst of kidney, acquired (principal); K76.0 Fatty (change of) liver, not elsewhere classified; K44.9 Diaphragmatic hernia without obstruction or gangrene
CPT/HCPCS: 82565; 84520; 74160; 36415; Q9967

== ENCOUNTER → 2018-03-27 | Outpatient (CLI) | payer MEDICARE ==
--- NOTE | 2018-03-28 07:30 | CT ---
EXAMINATION TYPE: CT chest w con DATE OF EXAM: 03/27/2018 COMPARISON: Prior chest CT March 04, 2010 HISTORY: SOB x [address] DLP: 272.7 mGycm. Automated Exposure Control for Dose Reduction was Utilized. TECHNIQUE: CT scan of the thorax is performed following with IV Contrast, patient injected with 80 m L of Isovue 300. FINDINGS: LUNGS: Linear scarring anteriorly right upper lung axial image 15 remains present. Seen best on lucía nal image 51 there is 5 mm nodule or nodular consolidation unchanged from prior study. There is backg round mild underlying emphysematous change. There is additional stable 8 x 4 mm nodule right midlung anteriorly axial image 34 appears to be within interlobar fissure likely reflecting benign lymph node . There is similar subpleural 7 x 3 mm nodule coronal image 12 anterior right lung base axial image 4 2 likely stable from prior axial image 73. There is dependent atelectasis in both bases. There is no new suspicious consolidation or groundglass opacity. There is patchy left basilar linear scarring and /or atelectasis just above diaphragm There is no pleural effusion or pneumothorax seen bilaterally. The tracheobronchial tree is patent. MEDIASTINUM: There are no greater than 1 cm hilar or mediastinal lymph nodes. There are prominent but subcentimeter bilateral hilar or mediastinal lymph nodes redemonstrated. Cardiomegaly is redemonstra topher with dual lead pacemaker/AICD. There are small to tiny pericardial effusion is slightly larger ve rsus prior. There is moderate to severe coronary artery calcification and/or stents in the LAD distri bution there is persistent dilated main pulmonary artery, CT findings consistent with underlying pulm onary artery hypertension. There is mild plaque in the aortic arch. OTHER: New fairly prominent bilateral gynecomastia is appreciated. There is mild to moderate multilev el disc space narrowing with mild multilevel spurring and multilevel vacuum disc phenomenon. S-shaped scoliosis is redemonstrated on coronal images. IMPRESSION: Cardiomegaly and chronic changes without acute pulmonary process. New bilateral gynecomas tia noted.
== END | disposition home or self-care (01) ==
LOC: RADCTMAIN 15:21
PROVIDERS: ATTEND Family Medicine
DX: I51.7 Cardiomegaly (principal); N62 Hypertrophy of breast
CPT/HCPCS: 82565; 84520; 71260; 36415; Q9967

== ENCOUNTER 2018-04-30 21:57 | Emergency (ER) | payer MEDICARE ==
--- NOTE | 2018-04-30 23:37 | ED ---
Chest Pain HPI - General Chief Complaint: Chest Pain Stated Complaint: chest pain/High BP Time Seen by Provider: 04/30/18 23:17 Source: patient Mode of arrival: wheelchair Limitations: physical limitation - History of Present Illness Initial Comments: This patient is an 87-year-old man who presents to the emergency department to be evaluated for his sternal chest pain. The patient states that between 2 and 3 this afternoon he had taken his dog for a walk and then had developed the pain. He states that he does get this sometimes with exertion. He indicates substernal pain, tight in character. He states that he took some nitroglycerin that did help relieve the pain. Later in the evening he was having some palpitations and was concerned that he may have gone back in atrial fibrillation. The palpitations he states have resolved, and he is feeling a bit better but only concerned now is that his blood pressure is somewhat high for him. MD Complaint: chest pain Onset/Timin -: hour(s) Onset: during exertion Pain Location: substernal Pain Radiation: none Severity: moderate Quality: tightness Consistency: now resolved Improves With: nitroglycerin Worsens With: exertion Treatments Prior to Arrival: nitroglycerin - Related Data Home Medications Medication Instructions Recorded Confirmed Alfuzosin HCl [Uroxatral] 10 tab PO HS 03/05/14 04/30/18 Digoxin [Lanoxin] 125 mcg PO HS 03/05/14 04/30/18 Carvedilol [Coreg] 3.125 mg PO BID 07/06/16 04/30/18 Isosorbide Mononitrate ER [Imdur] 60 mg PO BID 07/06/16 04/30/18 Levothyroxine Sodium [Synthroid] 88 mcg PO DAILY 07/06/16 04/30/18 Furosemide [Lasix] 10 mg PO DAILY 07/08/16 04/30/18 Losartan [Cozaar] 25 mg PO HS 02/24/17 04/30/18 Nitroglycerin Sl Tabs [Nitrostat] 0.4 mg SUBLINGUAL Q5M PRN 02/24/17 04/30/18 Aspirin 325 mg PO DAILY 07/31/17 04/30/18 metFORMIN HCL [Glucophage] 500 mg PO DAILY 07/31/17 04/30/18 Vitamin B Sublingual Drops 2 drops SUBLINGUAL DAILY 04/30/18 04/30/18 predniSONE 5 mg PO DAILY 04/30/18 04/30/18 Allergies Allergy/AdvReac Type Severity Reaction Status Date / Time ranolazine [From Ranexa] Allergy Severe Seizures Verified 04/30/18 23:13 Review of Systems ROS Statement: Those systems with pertinent positive or pertinent negative responses have been documented in the HPI. ROS Other: All systems not noted in ROS Statement are negative. Constitutional: Denies: fever, chills, weakness Eyes: Denies: vision change Respiratory: Denies: cough, dyspnea Cardiovascular: Reports: as per HPI, chest pain, palpitations. Denies: orthopnea, edema, syncope Gastrointestinal: Denies: abdominal pain, nausea, vomiting Musculoskeletal: Denies: back pain Skin: Denies: rash Neurological: Denies: headache, weakness, numbness EKG Findings - EKG Results: EKG: interpreted by JENNIFER, sinus rhythm (Rate 67 bpm) - Blocks, [place], Hypertrophy, ST Abn: AV and intraventricular conduction: left bundle branch block (fixed/intermittent , complete/incomplete) QRS axis and voltage: left axis deviation (-30 to -90) Past Medical History Past Medical History: Atrial Fibrillation, Asthma, Coronary Artery Disease (CAD) , COPD, Diabetes Mellitus, Sleep Apnea/CPAP/BIPAP Additional Past Medical History / Comment(s): C/O LT SHOUDER PAIN AND DECREASE ROM. AICD (medtronic placed at [facility] in 2008), cardiomyopathy, gastritis, paraesophageal hiatal hernia,left knee pain, past FALLS. HIATAL HERNIA,GLAUCOMA , MACULAR DEGENERATION, URINARY INCONT. sleep apnea with cpap. History of Any Multi-Drug Resistant Organisms: None Reported Past Surgical History: AICD, Heart Catheterization, Orthopedic Surgery, Tonsillectomy Additional Past Surgical History / Comment(s): AICD placed twice both at [facility]- in 1999 and 2008, PTCA November of 1999, hydrocelectomy, EGDs with last one benign EGD with Bx along antrum which pt stated was benign, colonoscopy with polypectomy, bilateral cataract removal; left knee sx "shaved cartilage", stress test, heart cath -no stents. Past Anesthesia/Blood Transfusion Reactions: No Reported Reaction Type of Cardiac Device: AICD Device Placement Date:: 2008 Past Psychological History: No Psychological Hx Reported Smoking Status: Never smoker Past Alcohol Use History: None Reported Past Drug Use History: None Reported - Past Family History Mother History Unknown: Yes Family Medical History: Blood Disorder, Coronary Artery Disease (CAD) Additional Family Medical History / Comment(s): Von Willebrand Daughter(s) Family Medical History: Cancer Additional Family Medical History / Comment(s): leukemia Father History Unknown: Yes Family Medical History: Coronary Artery Disease (CAD) Additional Family Medical History / Comment(s): Father was healthy General Exam Limitations: physical limitation General appearance: alert, in no apparent distress Head exam: Present: atraumatic, normocephalic Eye exam: Present: normal appearance. Absent: scleral icterus, conjunctival injection ENT exam: Present: normal oropharynx Neck exam: Present: normal inspection Respiratory exam: Present: normal lung sounds bilaterally. Absent: respiratory distress, wheezes, rales, rhonchi, stridor, chest wall tenderness Cardiovascular Exam: Present: regular rate, normal rhythm, systolic murmur. Absent: diastolic murmur, rubs, gallop GI/Abdominal exam: Present: soft. Absent: distended, tenderness, guarding, rebound, rigid, mass Extremities exam: Present: normal inspection, normal capillary refill. Absent: pedal edema, calf tenderness Back exam: Present: normal inspection. Absent: CVA tenderness (R), CVA tenderness (L) Neurological exam: Present: alert Skin exam: Present: warm, dry, intact, normal color. Absent: rash Course Vital Signs 04/30/18 04/30/18 05/01/18 22:03 23:20 00:20 Temperature 97.8 F Pulse Rate 68 62 Pulse Rate [ 66 Job Compositor ] Respiratory 18 16 Rate Blood Pressure 183/83 171/86 O2 Sat by Pulse 97 97 Oximetry 05/01/18 05/01/18 05/01/18 00:25 01:00 02:00 Temperature 98.0 F 97.8 F Pulse Rate 65 55 L 61 Pulse Rate [ Job Compositor ] Respiratory 18 16 18 Rate Blood Pressure 171/86 165/82 O2 Sat by Pulse 96 97 95 Oximetry 05/01/18 02:30 Temperature 98.0 F Pulse Rate 64 Pulse Rate [ Job Compositor ] Respiratory 18 Rate Blood Pressure 158/60 O2 Sat by Pulse 98 Oximetry Chest Pain [facility] Patient had resolution of all symptoms and wants to go home. 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 I did offer admission for monitoring, but patient refuses. Will return if sxs recur Disposition Clinical Impression: Stable angina Disposition: HOME SELF-CARE Condition: Fair Instructions: Angina (ED) Is patient prescribed a controlled substance at d/c from ED?: No Referrals: Hernán Bansal MD [Primary Care Provider] - 1-2 days Bryant Lyon MD [STAFF PHYSICIAN] - 1-2 days
[2018-04-30 23:44] LABS: Anisocytosis Slight; Basophils # (A) 0.1 k/uL (0-0.2); Basophils % (A) 1 %; Eosinophils # (A) 0.2 k/uL (0-0.7); Eosinophils % (A) 2 %; HCT 36.4 % (39.0-53.0); Lymphocytes # (A) 3.6 k/uL (1.0-4.8); Lymphocytes % (A) 27 %; MCH 29.2 pg (25.0-35.0); MCHC 32.9 g/dL (31.0-37.0); MCV 88.7 fL (80.0-100.0); Mean Platelet Volume 8.2; Monocytes # (A) 0.9 k/uL (0-1.0); Monocytes % (A) 6 %; Neutrophils # (A) 8.1 k/uL (1.3-7.7); Neutrophils % (A) 61 %; Platelet Count 244 k/uL (150-450); RDW 16.4 % (11.5-15.5); WBC 13.3 k/uL (3.8-10.6)
[2018-04-30 23:48] LABS: Albumin 4.4 g/dL (3.5-5.0); Potassium 4.4 mmol/L (3.5-5.1); Total Bilirubin 0.2 mg/dL (0.2-1.3); Total Protein 7.5 g/dL (6.3-8.2)
[2018-04-30 23:54] LABS: Creatine Kinase 43 U/L (55-170)
[2018-04-30] MEDS ORDERED: LABETALOL 5 MG/ML VIAL MDV IVP STA (23:54)
[2018-05-01 00:02] LABS: Partial Thromboplastin Time 23.7 sec (22.0-30.0); Prothrombin Time 9.9 sec (9.0-12.0)
[2018-05-01 00:07] LABS: Creatine Kinase MB 1.3 ng/mL (0.0-2.4); Troponin I <0.012 ng/mL (0.000-0.034)
--- NOTE | 2018-05-01 00:11 | XR ---
EXAMINATION TYPE: XR chest 1V portable DATE OF EXAM: 04/30/2018 COMPARISON: 12/04/2017 HISTORY: Chest pain TECHNIQUE: Single frontal view of the chest is obtained. FINDINGS: Heart and mediastinum are within normal limits. There is small linear density at the left lung base. There is no heart failure. Lungs are clear of consolidation. There is left axillary pacema ker with the lead tips in the right ventricle. There are chest leads. IMPRESSION: Minimal new subsegmental atelectasis at the left lung base. Otherwise negative exam.
[2018-05-01 00:41] LABS: D-Dimer 0.95 mg/L FEU (<0.60)
--- NOTE | 2018-05-01 01:47 | CT ---
EXAMINATION TYPE: CT chest angio for PE DATE OF EXAM: 05/01/2018 COMPARISON: None HISTORY: Prior chest CT 2010 on synapse, chest pain, hypertension, elevated d-dimer, R/O PE CT DLP: 284.60 mGycm Automated exposure control for dose reduction was used. CONTRAST: CT Chest for pulmonary embolism performed with with IV Contrast, patient injected with 80 mL of Isovu e 370. There are 3-D post processed images. FINDINGS: There is subpleural interstitial density at the lung bases and more on the left side consistent with scarring and subsegmental atelectasis. There is no pleural effusion. There is no pericardial effusion . There is normal contrast opacification of the pulmonary arteries. I see no filling defect. There is n o evidence of aortic aneurysm or dissection. There is no mediastinal adenopathy. There are no hilar m asses. The bony thorax is intact. There is 6 mm low-density nodular density in the right upper lobe laterally. IMPRESSION: There is some scarring and subsegmental atelectasis at the lung bases. No evidence of pulmonary embol ism. Small hiatal hernia noted. Small right upper lobe nodule unchanged compared to 03/04/2010 exam.
[2018-05-01 02:48] VITALS: RESP 18
[2018-05-01 02:50] VITALS: BP 158/60; PULSE 64; TEMP 98
== END 2018-05-01 02:30 | disposition home or self-care (01) ==
LOC: EC 21:57
DX: I25.119 Atherosclerotic heart disease of native coronary artery with unspecified angina pectoris (principal); I48.91 Unspecified atrial fibrillation; J44.9 Chronic obstructive pulmonary disease, unspecified; E11.9 Type 2 diabetes mellitus without complications; I11.9 Hypertensive heart disease without heart failure; G47.30 Sleep apnea, unspecified; Z88.8 Allergy status to other drugs, medicaments and biological substances; Z79.52 Long term (current) use of systemic steroids; Z79.82 Long term (current) use of aspirin; Z79.84 Long term (current) use of oral hypoglycemic drugs; Z79.899 Other long term (current) drug therapy; Z99.89 Dependence on other enabling machines and devices; Z95.810 Presence of automatic (implantable) cardiac defibrillator; Z82.49 Family history of ischemic heart disease and other diseases of the circulatory system
CPT/HCPCS: 36415; 93005; 85379; 80053; 82550; 82553; 80162; 83735; 84484; 85025; 85610; 85730; 71045; 71275; 99285; 96374; Q9967

== ENCOUNTER 2019-03-20 14:03 | Inpatient (IN) | payer MEDICARE ==
[2019-03-20] MEDS ORDERED: SODIUM CHLORIDE 0.9% 500 ML 500 ML IV STA (14:31)
[2019-03-20] MEDS ORDERED: SODIUM CHLORIDE 0.9% 1,000 ML IV STA (14:31)
--- NOTE | 2019-03-20 14:53 | ED ---
Chest Pain HPI - General Chief Complaint: Chest Pain Stated Complaint: Defibrillation went off Time Seen by Provider: 03/20/19 14:14 Source: patient, RN notes reviewed, old records reviewed Mode of arrival: wheelchair Limitations: no limitations - History of Present Illness Initial Comments: This is a 88-year-old male the ER for evaluation. Patient has to fibular placed not pacer for history of cardiomyopathy. Patient has not had prior episodes of fibular firing. And is 5 multiple times today. No recent illness no nausea vomiting diarrhea no medication changes. Patient denying any chest pain shortness breath. Patient at this time is a symptomatically is been feeling well lately without acute complaint. MD Complaint: chest pain (No chest pain, defibrillator has fired and that was painful he believes around 5 times) -: hour(s) Onset: during rest Pain Location: left chest Pain Radiation: none Severity: moderate Quality: other (No pain) Consistency: intermittent Improves With: nothing Worsens With: nothing Context: other (none) Anginal Symptoms: other (none) Other Symptoms: other (None) Treatments Prior to Arrival: none - Related Data Home Medications Medication Instructions Recorded Confirmed Alfuzosin HCl [Uroxatral] 10 mg PO HS 03/05/14 03/20/19 Digoxin [Lanoxin] 125 mcg PO HS 03/05/14 03/20/19 Carvedilol [Coreg] 3.125 mg PO BID 07/06/16 03/20/19 Isosorbide Mononitrate ER [Imdur] 60 mg PO BID 07/06/16 03/20/19 Levothyroxine Sodium [Synthroid] 88 mcg PO DAILY 07/06/16 03/20/19 Furosemide [Lasix] 10 mg PO Q48H 07/08/16 03/20/19 Nitroglycerin Sl Tabs [Nitrostat] 0.4 mg SUBLINGUAL Q5M PRN 02/24/17 03/20/19 Aspirin 325 mg PO DAILY 07/31/17 03/20/19 metFORMIN HCL [Glucophage] 500 mg PO DAILY 07/31/17 03/20/19 predniSONE 5 mg PO HS 04/30/18 03/20/19 Atorvastatin [Lipitor] 20 mg PO HS 03/20/19 03/20/19 Pramipexole Di-HCl [Mirapex] 1.5 mg PO HS 03/20/19 03/20/19 Allergies Allergy/AdvReac Type Severity Reaction Status Date / Time ranolazine [From Ranexa] Allergy Severe Seizures Verified 03/20/19 15:27 Review of Systems ROS Statement: Those systems with pertinent positive or pertinent negative responses have been documented in the HPI. ROS Other: All systems not noted in ROS Statement are negative. EKG Findings - EKG Comments: EKG Findings:: EKG shows normal sinus rhythm rate of 70, VT 202, QRS 134, QTc 451 Past Medical History Past Medical History: Atrial Fibrillation, Asthma, Coronary Artery Disease (CAD), COPD, Diabetes Mellitus, Sleep Apnea/CPAP/BIPAP Additional Past Medical History / Comment(s): C/O LT SHOUDER PAIN AND DECREASE ROM. AICD (medtronic placed at [facility] in 2008), cardiomyopathy, gastritis, paraesophageal hiatal hernia,left knee pain, past FALLS. HIATAL HERNIA,GLAUCOMA, MACULAR DEGENERATION, URINARY INCONT. sleep apnea with cpap. History of Any Multi-Drug Resistant Organisms: None Reported Past Surgical History: AICD, Heart Catheterization, Orthopedic Surgery, Tonsillectomy Additional Past Surgical History / Comment(s): AICD placed twice both at [facility]-in 1999 and 2008, PTCA November of 1999, hydrocelectomy, EGDs with last one benign 02/27/14 EGD with Bx along antrum which pt stated was benign, colonoscopy with polypectomy, bilateral cataract removal; left knee sx "shaved cartilage", stress test, heart cath -no stents. Past Anesthesia/Blood Transfusion Reactions: No Reported Reaction Type of Cardiac Device: AICD Device Placement Date:: 2008 Past Psychological History: No Psychological Hx Reported Smoking Status: Never smoker Past Alcohol Use History: None Reported Past Drug Use History: None Reported - Past Family History Mother History Unknown: Yes Family Medical History: Blood Disorder, Coronary Artery Disease (CAD) Additional Family Medical History / Comment(s): Von Willebrand Daughter(s) Family Medical History: Cancer Additional Family Medical History / Comment(s): leukemia Father History Unknown: Yes Family Medical History: Coronary Artery Disease (CAD) Additional Family Medical History / Comment(s): Father was healthy General Exam Limitations: no limitations General appearance: alert, in no apparent distress Head exam: Present: atraumatic, normocephalic, normal inspection Eye exam: Present: normal appearance, PERRL, EOMI. Absent: scleral icterus, conjunctival injection, periorbital swelling ENT exam: Present: normal exam, mucous membranes moist Neck exam: Present: normal inspection. Absent: tenderness, meningismus, lymphadenopathy Respiratory exam: Present: normal lung sounds bilaterally. Absent: respiratory distress, wheezes, rales, rhonchi, stridor Cardiovascular Exam: Present: regular rate, normal rhythm, normal heart sounds. Absent: systolic murmur, diastolic murmur, rubs, gallop, clicks GI/Abdominal exam: Present: soft, normal bowel sounds. Absent: distended, tenderness, guarding, rebound, rigid Extremities exam: Present: normal inspection, full ROM, normal capillary refill. Absent: tenderness, pedal edema, joint swelling, calf tenderness Back exam: Present: normal inspection Neurological exam: Present: alert, oriented X3, CN II-XII intact Psychiatric exam: Present: normal affect, normal mood Skin exam: Present: warm, dry, intact, normal color. Absent: rash Course Vital Signs 03/20/19 03/20/19 03/20/19 14:04 14:25 16:00 Temperature 98.2 F Pulse Rate 79 63 59 L Respiratory 18 18 18 Rate Blood Pressure 154/74 136/68 149/80 O2 Sat by Pulse 97 96 95 Oximetry - Reevaluation(s) Reevaluation #1: 03/20/19 14:52 Medical records reviewed Reevaluation #2: 03/20/19 14:53 June will be interrogated here in the ER Reevaluation #3: 03/20/19 17:20 No more to fibular firing here in the ER Chest Pain MDM - MDM 88 male be admitted for defibrillator firing. Patient will be admitted for cardiac observation, records are requested and pacemaker is interrogated Critical Care Time Critical Care Time: Yes Total Critical Care Time: 31 Disposition Clinical Impression: Defibrillator discharge Disposition: ADMITTED IP TO THIS HOSP Condition: Fair Is patient prescribed a controlled substance at d/c from ED?: No Referrals: Hernán Bansal MD [Primary Care Provider] - 1-2 days
[2019-03-20 14:56] LABS: Basophils # (A) 0.1 k/uL (0-0.2); Basophils % (A) 1 %; Eosinophils # (A) 0.2 k/uL (0-0.7); Eosinophils % (A) 2 %; HCT 35.7 % (39.0-53.0); HGB 11.7 gm/dL (13.0-17.5); Lymphocytes # (A) 3.2 k/uL (1.0-4.8); Lymphocytes % (A) 26 %; MCH 29.6 pg (25.0-35.0); MCHC 32.9 g/dL (31.0-37.0); MCV 89.9 fL (80.0-100.0); Mean Platelet Volume 7.4; Monocytes # (A) 0.7 k/uL (0-1.0); Monocytes % (A) 6 %; Neutrophils # (A) 7.7 k/uL (1.3-7.7); Neutrophils % (A) 63 %; Platelet Count 291 k/uL (150-450); RBC 3.97 m/uL (4.30-5.90); RDW 13.3 % (11.5-15.5); WBC 12.2 k/uL (3.8-10.6)
[2019-03-20 15:00] LABS: INR 0.9 (<1.2); Prothrombin Time 9.8 sec (9.0-12.0)
[2019-03-20 15:01] LABS: Albumin 4.3 g/dL (3.5-5.0); Calcium 9.5 mg/dL (8.4-10.2); Phosphorus 3.4 mg/dL (2.5-4.5); Potassium 4.2 mmol/L (3.5-5.1); Total Bilirubin 0.3 mg/dL (0.2-1.3); Total Protein 7.1 g/dL (6.3-8.2)
[2019-03-20] MEDS ORDERED: NITROGLYCERIN SL TABS 0.4 MG TAB SUBLINGUAL PRN (17:19)
[2019-03-20] MEDS ORDERED: ASPIRIN 81 MG PO STA (17:19)
[2019-03-20] MEDS ORDERED: SODIUM CHLORIDE 0.9% 1,000 ML IV SCH (17:30)
--- NOTE | 2019-03-20 19:52 | CT ---
EXAMINATION TYPE: CT chest wo con DATE OF EXAM: 03/20/2019 COMPARISON: 05/01/2018 HISTORY: chest pain CT DLP: 415.1 mGycm. Automated Exposure Control for Dose Reduction was Utilized. TECHNIQUE: CT scan of the thorax is performed without IV contrast. FINDINGS: There is mild subpleural interstitial infiltrate in the posterior lung allen. There is some mild ate lectasis at the left lung base. There is no pleural effusion. Heart is enlarged. There is coronary ar di calcification. There is no mediastinal adenopathy. Thoracic aorta is atheromatous. There is a le ft axillary pacemaker. There is small hiatal hernia. There is no evidence of a pulmonary mass. The wagner ny thorax is intact. There is mild bilateral perinephric edema not changed compared to old CT scan of 12/18/2017 and could relate to previous episode of obstruction or inflammation. IMPRESSION: There is subpleural interstitial infiltrate and atelectasis in the posterior lung allen not significantly different than old exam. No suspicious pulmonary mass. Atherosclerotic vascular dis ease.
[2019-03-20] MEDS ORDERED: DIGOXIN 125 MCG TAB PO SCH (21:00)
[2019-03-20] MEDS ORDERED: ATORVASTATIN 20 MG TAB PO SCH (21:00)
[2019-03-20] MEDS ORDERED: predniSONE 5 MG TAB PO SCH (21:00)
[2019-03-20 23:06] LABS: T4, Free (Free Thyroxine) 0.76 ng/dL (0.78-2.19)
[2019-03-20] MEDS: ISOSORBIDE MONONITRATE ER 60 MG TAB.ER.24H PO SCH (23:18)
[2019-03-20] MEDS: amLODIPine 5 MG TAB PO SCH (23:18)
[2019-03-20] MEDS: METOPROLOL TARTRATE 25 MG TAB PO SCH (23:19)
[2019-03-21 01:19] VITALS: BMI 25.6
[2019-03-21 04:31] LABS: Cholesterol 136 mg/dL (<200); HDL Cholesterol 42 mg/dL (40-60); LDL Cholesterol,Calculated 73 mg/dL (0-99); Triglycerides 106 mg/dL (<150)
[2019-03-21 06:07] LABS: Glucose,Whole Blood 104 mg/dL (75-99)
--- NOTE | 2019-03-21 06:08 | HP ---
HISTORY AND PHYSICAL CHIEF COMPLAINT: An 88-year-old white male, pacemaker, cardiomyopathy, had a defibrillator firing at home, multiple. 5 times a day. It is also reporting pleuritic chest pain over the past week, left side worse with breathing. No nausea, vomiting. No melena, hematochezia. HOME MEDICATIONS: 1. Lanoxin 125 mcg p.o. daily. 2. Uroxatral 10 mg daily. 3. Coreg 3.125 b.i.d. 4. Imdur 60 mg b.i.d. 5. Synthroid 88 mcg daily. 6. Lasix 10 mg every 48 hours. 7. Nitrostat p.r.n. 8. Glucophage 500 daily. 9. Prednisone 5 mg daily. 10.Lipitor 20 daily. 11.Mirapex 1.5 mg q.h.s. ALLERGIES: Allergies are RANEXA. REVIEW OF SYSTEMS: Fourteen-point review of systems negative except for mentioned in HPI. EKG sinus rhythm. PAST MEDICAL HISTORY: Atrial fibrillation, asthma, coronary artery disease, COPD, diabetes mellitus, sleep apnea; complains of left shoulder pain for which CAT scan has been ordered; cardiomyopathy, gastritis, paraesophageal hiatal hernia, knee pain, glaucoma, macular degeneration, urinary incontinence, sleep apnea, EGD, colonoscopy, cataracts removed, AICD. FAMILY HISTORY: Mother with coronary disease. Daughter with leukemia. PHYSICAL EXAMINATION: Temp 98.2, pulse 59 to 72, respiratory rate 16 to 18, blood pressure 136 to 154 over 74 to 80, O2 95% to 97%. CARDIOVASCULAR: S1, S2. LUNGS: Transmitted upper airway sounds. HEMATOLOGY: Negative Homans. PSYCH: Fair mood and affect. NEUROLOGIC: Alert and oriented x3. OPHTHALMOLOGIC: Pupils equal, round, reactive to light and accommodation. VASCULAR: Normal dorsalis pedis, posterior tib, radial pulse. GI: Soft, nontender. ASSESSMENT: 1. Defibrillator discharge. 2. History of coronary artery disease. 3. Pleurisy. 4. Rotator cuff tendinitis. 5. Hypothyroidism, may need increase in dose. Cardiology consult. Please see further orders. MMODL / IJN: [id number] /
[2019-03-21] MEDS ORDERED: LEVOTHYROXINE 88 MCG TAB PO SCH (06:30)
[2019-03-21] MEDS ORDERED: ASPIRIN 325 MG TAB PO SCH ×2 (09:00)
[2019-03-21] MEDS ORDERED: DOCUSATE 100 MG CAP PO SCH (09:00)
--- NOTE | 2019-03-21 10:16 | CT ---
EXAMINATION TYPE: CT shoulder RT wo con DATE OF EXAM: 03/20/2019 COMPARISON: None HISTORY: right shoulder pain. no injury. CT DLP: images reconstructed from chest scan. chest DLP 415.[address] of the right shoulder with reconstruction imaging. TECHNIQUE: Unenhanced CT of the right shoulder was performed with bone and soft tissue window setting s submitted in the axial coronal and sagittal planes. At a separate workstation [id number] TR imaging was o btained. FINDINGS: I do not see evidence for acute fracture or dislocation. There is elevation of the humeral head relative to the central glenoid axis compatible with chronic rotator cuff tear. Narrowing of the subacromial joint space noted. Bony fragmentation identified with calcific tendinopathy changes note d. Severe degenerative change of the AC joint and glenohumeral joint appreciated. No soft tissue mass . No osseous lesion. MRI is much more sensitive and specific to rotator cuff pathology. No soft tiss ue masses appreciated. Visualized portions of the right lung demonstrate 5.5 mm pulmonary nodule rig ht upper lobe. Follow-up CT recommended in 3-4 months of the chest. IMPRESSION: 1. 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 2. Pulmonary nodule right upper lobe requires follow-up in 3-4 months.
[2019-03-21] MEDS: METOPROLOL TARTRATE 25 MG TAB PO SCH (10:32)
[2019-03-21] MEDS: amLODIPine 5 MG TAB PO SCH (10:32)
[2019-03-21] MEDS: ISOSORBIDE MONONITRATE ER 60 MG TAB.ER.24H PO SCH (10:32)
--- NOTE | 2019-03-21 11:56 | P.CRDCN ---
History of Present Illness Consult date: 03/21/19 Requesting physician: Hernán Bansal Reason for Consult (text): AICD discharge Chief complaint: AICD discharge History of present illness: This is a pleasant 88-year-old gentleman who follows regularly with Dr. VC Young in the office. 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 Presented to the hospital on this occasion following multiple shocks from his AICD. Overall the patient states he's been feeling fairly well at home, he does state that he's had a recent pleurisy, and that his blood pressure has been very up-and-down. He's been feeling much more tired than usual. Patient had a significant shocks from his AICD, he states he felt like a horse kicked him in the chest. Subsequent to that he does state that he had multiple shocks from his device which were much less severe. His EKG on presentation here showed a normal sinus rhythm with a left bundle-branch block pattern. CT of the chest showed subpleural interstitial infiltrate and atelectasis in the posterior lung allen not significantly different than prior exam. No suspicious pulmonary mass. An x- ray of the right shoulder was also performed which showed chronic rotator cuff tear with calcific tendinopathy and bony fragmentation. Pulmonary nodule in the right upper lobe requires follow-up in 3-4 months. Blood pressure on arrival here 154/70 with a heart rate in the 70s, 97% on room air. Blood pressure this morning 152/70 with a heart rate in the 70s. White blood cell count 12.2, hemoglobin 11.7, platelet count 297. Sodium 141 potassium 4.2, BUN 19, creatinine 1.0. Troponins are negative 3, BNP level is 166. TSH 8.17, free T4 0.7. Dig levels 0.7. At the time of my examination, patient feels well, he has no complaints. His device was interrogated last evening, we are awaiting a call from [facility] regarding the final report. Past Medical History Past Medical History: Atrial Fibrillation, Asthma, Coronary Artery Disease (CAD), COPD, Diabetes Mellitus, GI Bleed, Sleep Apnea/CPAP/BIPAP Additional Past Medical History / Comment(s): C/O LT SHOUDER PAIN AND DECREASE ROM. AICD (medtronic placed at [facility] in 2008), cardiomyopathy, gastritis, paraesophageal hiatal hernia,left knee pain, past FALLS. HIATAL HERNIA,GLAUCOMA, MACULAR DEGENERATION, URINARY INCONT. sleep apnea with cpap. GI bleed requiring blood transfusion Feb 2017 History of Any Multi-Drug Resistant Organisms: None Reported Past Surgical History: AICD, Heart Catheterization, Orthopedic Surgery, Tonsillectomy Additional Past Surgical History / Comment(s): AICD placed X3 at [facility]-in 1999, 2008, 2017, PTCA November of 1999, hydrocelectomy, EGDs with last one benign 02/27/14 EGD with Bx along antrum which pt stated was benign, colonoscopy with polypect juancarlos, bilateral cataract removal; left knee sx "shaved cartilage", stress test, heart cath -no stents. Past Anesthesia/Blood Transfusion Reactions: No Reported Reaction Type of Cardiac Device: AICD Device Placement Date:: 2017 Past Psychological History: No Psychological Hx Reported Additional Psychological History / Comment(s): Pt lives with and his son. He uses no assistive device and has no home care agencies coming into the home. Pt no longer drives a car-family helps get them to appts and stores.. He is independent with ADLS Smoking Status: Former smoker Past Alcohol Use History: None Reported Additional Past Alcohol Use History / Comment(s): Pt states he started smoking at age 18yrs and quit in 1987 was smoking 2ppd. 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 Past Drug Use History: None Reported - Past Family History Mother History Unknown: Yes Family Medical History: Blood Disorder, Coronary Artery Disease (CAD) Additional Family Medical History / Comment(s): Von Willebrand Daughter(s) Family Medical History: Cancer Additional Family Medical History / Comment(s): leukemia Father History Unknown: Yes Family Medical History: Coronary Artery Disease (CAD) Additional Family Medical History / Comment(s): Father was healthy Medications and Allergies Home Medications Medication Instructions Recorded Confirmed Type Alfuzosin HCl [Uroxatral] 10 mg PO HS 03/05/14 03/20/19 History Digoxin [Lanoxin] 125 mcg PO HS 03/05/14 03/20/19 History Isosorbide Mononitrate ER [Imdur] 60 mg PO BID 07/06/16 03/20/19 History Furosemide [Lasix] 10 mg PO Q48H 07/08/16 03/20/19 History Nitroglycerin Sl Tabs [Nitrostat] 0.4 mg SUBLINGUAL Q5M PRN 02/24/17 03/20/19 History Aspirin 325 mg PO DAILY 07/31/17 03/20/19 History metFORMIN HCL [Glucophage] 500 mg PO DAILY 07/31/17 03/20/19 History predniSONE 5 mg PO HS 04/30/18 03/20/19 History Atorvastatin [Lipitor] 20 mg PO HS 03/20/19 03/20/19 History Pramipexole Di-HCl [Mirapex] 1.5 mg PO HS 03/20/19 03/20/19 History Levothyroxine Sodium [Synthroid] 100 mcg PO DAILY@0630 #30 tab 03/21/19 Rx Metoprolol Tartrate [Lopressor] 25 mg PO BID #60 tab 03/21/19 Rx Sennosides-Docusate Sodium 2 tab PO HS #60 tablet 03/21/19 Rx [Senokot-S] amLODIPine [Norvasc] 5 mg PO DAILY #30 tab 03/21/19 Rx Allergies Allergy/AdvReac Type Severity Reaction Status Date / Time ranolazine [From Ranexa] Allergy Severe Seizures Verified 03/20/19 15:27 Physical Exam Vitals: Vital Signs Temp Pulse Pulse Resp BP BP Pulse Ox 03/21/19 08:00 97.8 F 67 14 153/73 94 L 03/21/19 07:54 97.8 F 67 14 153/73 94 L 03/21/19 04:20 97.8 F 73 18 131/61 95 03/21/19 01:00 97.5 F L 61 18 142/66 96 03/20/19 23:15 98.6 F 68 18 156/88 95 03/20/19 21:13 97.6 F 63 18 155/75 97 03/20/19 18:30 59 L 18 173/89 95 03/20/19 16:00 59 L 18 149/80 95 03/20/19 14:25 63 18 136/68 96 03/20/19 14:04 98.2 F 79 18 154/74 97 Intake and Output 03/20/19 03/21/19 03/21/19 22:59 06:59 14:59 Intake Total 280 Output Total 300 Balance -300 280 Intake: Oral 280 Output: Urine 300 Other: Voiding Method Toilet # Voids 1 Weight 72 kg PHYSICAL EXAMINATION: GENERAL: 88-year-old gentleman in no acute distress at the time of my examination HEENT: Head is atraumatic, normocephalic. Pupils equal, round. Sclera anicteric. Conjunctiva are clear. Mucous membranes of the mouth are moist. Neck is supple. There is no elevated jugular venous pressure. No carotid bruit is heard. HEART EXAMINATION: Heart S1 and S2 systolic murmur is heard CHEST EXAMINATION: Lungs are clear to auscultation and precussion. No chest wall tenderness is noted on palpation or with deep breathing. ABDOMEN: Soft, nontender. Bowel sounds are heard. No organomegaly noted. EXTREMITIES: 2+ peripheral pulses with no evidence of peripheral edema and no calf tenderness noted. NEUROLOGIC patient is awake, alert and oriented 3 . . Results 03/20/19 14:41 03/20/19 14:41 Cardiac Enzymes 03/20/19 03/20/19 03/20/19 Range/Units 14:41 14:41 20:59 AST 23 (17-59) U/L Troponin I <0.012 <0.012 (0.000-0.034) ng/mL 03/21/19 Range/Units 03:03 AST (17-59) U/L Troponin I <0.012 (0.000-0.034) ng/mL Coagulation 03/20/19 Range/Units 14:41 PT 9.8 (9.0-12.0) sec APTT 26.0 (22.0-30.0) sec Lipids 03/21/19 Range/Units 03:03 Triglycerides 106 (<150) mg/dL Cholesterol 136 (<200) mg/dL HDL Cholesterol 42 (40-60) mg/dL CBC 03/20/19 Range/Units 14:41 WBC 12.2 H (3.8-10.6) k/uL RBC 3.97 L (4.30-5.90) m/uL Hgb 11.7 L (13.0-17.5) gm/dL Hct 35.7 L (39.0-53.0) % Plt Count 291 (150-450) k/uL Comprehensive Metabolic Panel 03/20/19 Range/Units 14:41 Sodium 141 (137-145) mmol/L Potassium 4.2 (3.5-5.1) mmol/L Chloride 105 (98-107) mmol/L Carbon Dioxide 25 (22-30) mmol/L BUN 19 (9-20) mg/dL Creatinine 1.07 (0.66-1.25) mg/dL Glucose 101 H (74-99) mg/dL Calcium 9.5 (8.4-10.2) mg/dL AST 23 (17-59) U/L ALT 21 (21-72) U/L Alkaline Phosphatase 81 (38-126) U/L Total Protein 7.1 (6.3-8.2) g/dL Albumin 4.3 (3.5-5.0) g/dL Current Medications Generic Name Dose Route Start Last Admin Trade Name Freq PRN Reason Stop Dose Admin Amlodipine Besylate 5 mg 03/20/19 19:00 03/21/19 10:32 Norvasc PO 5 mg DAILY KATHI Administration Aspirin 325 mg 03/21/19 09:00 03/21/19 10:32 Aspirin PO 325 mg DAILY KATHI Administration Atorvastatin Calcium 20 mg 03/20/19 21:00 03/20/19 23:19 Lipitor PO 20 mg HS KATHI Administration Digoxin 125 mcg 03/20/19 21:00 03/20/19 23:16 Lanoxin PO 125 mcg HS KATHI Administration Docusate Sodium 100 mg 03/21/19 09:00 03/21/19 10:32 Colace PO 100 mg BID KATHI Administration Furosemide 10 mg 03/22/19 09:00 Lasix PO Q48H [facility] Sodium Chloride 1,000 mls @ 20 mls/hr 03/20/19 17:30 03/21/19 00:56 Saline 0.9% IV Not Given .Q24H KATHI Isosorbide Mononitrate 60 mg 03/20/19 21:00 03/21/19 10:32 Imdur PO 60 mg BID KATHI Administration Levothyroxine Sodium 100 mcg 03/22/19 06:30 Synthroid PO DAILY@0630 [facility] Metoprolol Tartrate 25 mg 03/20/19 21:00 03/21/19 10:32 Lopressor PO 25 mg BID KATHI Administration Nitroglycerin 0.4 mg 03/20/19 17:19 Nitrostat SUBLINGUAL Q5M PRN Chest Pain Prednisone 5 mg 03/20/19 21:00 03/20/19 21:10 PO 5 mg HS KATHI Administration Intake and Output 03/20/19 03/21/19 03/21/19 22:59 06:59 14:59 Intake Total 280 Output Total 300 Balance -300 280 Intake: Oral 280 Output: Urine 300 Other: Voiding Method Toilet # Voids 1 Weight 72 kg 03/20/19 14:41 03/20/19 14:41 EKG Interpretations (text) EKG shows a normal sinus rhythm with a left bundle-branch block pattern, left axis deviation and nonspecific ST-T wave changes Assessment and Plan Plan: Assessment and plan #1 possible AICD discharge #2 dilated cardiomyopathy with prior AICD implantation #3 hypertension #4 hyperlipidemia #5 paroxysmal atrial fibrillation\\ #6 prior history of smoking #7 history of TIA Plan Patient's AICD has been interrogated, it does not appear that the patient had an AICD discharge. No arrhythmias documented and no documentation of any firing from his AICD. It is likely patient was just experiencing a sharp chest pains from a pleurisy. From our perspective he may be able to be discharged home and follow-up in the office. DNP note has been reviewed, I agree with a documented findings and plan of care. Patient was seen and examined.
[2019-03-21 11:58] LABS: Glucose,Whole Blood 99 mg/dL (75-99)
[2019-03-21] MEDS ORDERED: PANTOPRAZOLE 40 MG TABLET PO SCH (12:30)
[2019-03-21 12:37] VITALS: BP 123/66; PULSE 69; RESP 16; TEMP 97.7
--- NOTE | 2019-03-21 15:30 | P.DS ---
Providers Date of admission: 03/20/19 17:19 Expected date of discharge: 03/21/19 Attending physician: Hernán Bansal Consults: 03/20/19 17:19 Consult Physician Urgent Consulting Provider: Gilmar Prakash Consult Reason/Comments: defibfiring Do you want consulting provider notified?: Yes Primary care physician: Hernán Bansal [facility] Course: Final Diagnoses: -Defibrillator discharge ruled out as per interrogation, possibly sx related to pleurisy -CAD -Pleurisy -Rotator cuff tendinitis -Hypothyroidism, dose increased Hospital course: This is a 88-year-old gentleman with history of cardiomyopathy, pacemaker experienced multiple defibrillator firings, pleuritic chest pain, and multiple other medical issues. Evaluated by cardiology. Pacemaker interrogated with no arrhythmias documented, no documentation of any firing as per cardiology. Digoxin level is subtherapeutic 0.7, discontinued,meds further adjusted as per cardiology. Denies any further episodes of AICD firing, chest pain, palpitations, increased shortness of breath, lightheadedness dizziness or focal deficits. Maintaining O2 sats in the 90s on room air. Cleared by cardiology for discharge. Significant clinical improvement. Patient is being discharged home in stable condition with guarded prognosis. EXAM: GENERAL: Alert and oriented 3, no acute distress. CARDIOVASCULAR: S1, S2 regular.. No murmur RESPIRATION: Breath sounds diminished in the bases. No rhonchi or crackles. No wheezing. ABDOMEN: Soft, nontender . No guarding. no masses palpable. Positive Bowel sounds. NERVOUS SYSTEM: No focal deficits. The impression and plan of care has been dictated as directed. : I performed a history and examination of this patient, discussed the same with the dictator. I agree with the dictator's note ,documented as a scribe. Any additional findings or plans will be noted. Time Taken: 35 min. Patient Condition at Discharge: Stable Plan - Discharge Summary New Discharge Prescriptions: New Metoprolol Tartrate [Lopressor] 25 mg PO BID #60 tab amLODIPine [Norvasc] 5 mg PO DAILY #30 tab Sennosides-Docusate Sodium [Senokot-S] 2 tab PO HS #60 tablet Levothyroxine Sodium [Synthroid] 100 mcg PO DAILY@0630 #30 tab Aspirin 81 mg PO DAILY #30 chew Continue Alfuzosin HCl [Uroxatral] 10 mg PO HS Isosorbide Mononitrate ER [Imdur] 60 mg PO BID Furosemide [Lasix] 10 mg PO Q48H Nitroglycerin Sl Tabs [Nitrostat] 0.4 mg SUBLINGUAL Q5M PRN PRN Reason: Chest Pain metFORMIN HCL [Glucophage] 500 mg PO DAILY predniSONE 5 mg PO HS Atorvastatin [Lipitor] 20 mg PO HS Pramipexole Di-HCl [Mirapex] 1.5 mg PO HS Discontinued Levothyroxine Sodium [Synthroid] 88 mcg PO DAILY Carvedilol [Coreg] 3.125 mg PO BID Aspirin 325 mg PO DAILY Discharge Medication List Alfuzosin HCl [Uroxatral] 10 mg PO HS 03/05/14 [History] Isosorbide Mononitrate ER [Imdur] 60 mg PO BID 07/06/16 [History] Furosemide [Lasix] 10 mg PO Q48H 07/08/16 [History] Nitroglycerin Sl Tabs [Nitrostat] 0.4 mg SUBLINGUAL Q5M PRN 02/24/17 [History] metFORMIN HCL [Glucophage] 500 mg PO DAILY 07/31/17 [History] predniSONE 5 mg PO HS 04/30/18 [History] Atorvastatin [Lipitor] 20 mg PO HS 03/20/19 [History] Pramipexole Di-HCl [Mirapex] 1.5 mg PO HS 03/20/19 [History] Aspirin 81 mg PO DAILY #30 chew 03/21/19 [Rx] Levothyroxine Sodium [Synthroid] 100 mcg PO DAILY@0630 #30 tab 03/21/19 [Rx] Metoprolol Tartrate [Lopressor] 25 mg PO BID #60 tab 03/21/19 [Rx] Sennosides-Docusate Sodium [Senokot-S] 2 tab PO HS #60 tablet 03/21/19 [Rx] amLODIPine [Norvasc] 5 mg PO DAILY #30 tab 03/21/19 [Rx] Follow up Appointment(s)/Referral(s): Hernán Bansal MD [Primary Care Provider] - 3 Days Activity/Diet/Wound Care/Special Instructions: Confirm cardiology follow-up appointment prior to discharge
[2019-03-21 16:53] LABS: Glucose,Whole Blood 198 mg/dL (75-99)
[2019-03-21] MEDS ORDERED: amLODIPine 5 MG TAB PO SCH (21:00)
[2019-03-22] MEDS ORDERED: LEVOTHYROXINE 100 MCG TAB PO SCH (06:30)
[2019-03-22] MEDS ORDERED: FUROSEMIDE 20 MG TAB PO SCH (09:00)
[2019-03-22] MEDS ORDERED: ASPIRIN 81 MG PO SCH (09:00)
== END 2019-03-21 17:43 | disposition home or self-care (01) | DRG 194 ==
LOC: EC 14:03 → 3SCARD 17:19
PROVIDERS: ADMIT Family Medicine; ATTEND Family Medicine
PROC: 4B02XTZ Measurement of Cardiac Defibrillator, External Approach (ICD-10-PCS; principal; 2019-03-20)
DX: R09.1 Pleurisy (principal); I42.0 Dilated cardiomyopathy; J98.11 Atelectasis; I48.0 Paroxysmal atrial fibrillation; E11.39 Type 2 diabetes mellitus with other diabetic ophthalmic complication; J44.9 Chronic obstructive pulmonary disease, unspecified; I44.7 Left bundle-branch block, unspecified; H40.9 Unspecified glaucoma; I25.10 Atherosclerotic heart disease of native coronary artery without angina pectoris; E03.9 Hypothyroidism, unspecified; I10 Essential (primary) hypertension; K44.9 Diaphragmatic hernia without obstruction or gangrene; H42 Glaucoma in diseases classified elsewhere; G47.30 Sleep apnea, unspecified; M75.101 Unspecified rotator cuff tear or rupture of right shoulder, not specified as traumatic; E78.5 Hyperlipidemia, unspecified; H35.30 Unspecified macular degeneration; R91.1 Solitary pulmonary nodule; R32 Unspecified urinary incontinence; M25.562 Pain in left knee; F10.21 Alcohol dependence, in remission; Z79.82 Long term (current) use of aspirin; Z79.890 Hormone replacement therapy; Z79.84 Long term (current) use of oral hypoglycemic drugs; Z79.899 Other long term (current) drug therapy; Z95.810 Presence of automatic (implantable) cardiac defibrillator; Z98.61 Coronary angioplasty status; Z99.89 Dependence on other enabling machines and devices; Z87.891 Personal history of nicotine dependence; Z87.19 Personal history of other diseases of the digestive system; Z86.73 Personal history of transient ischemic attack (TIA), and cerebral infarction without residual deficits; Z98.42 Cataract extraction status, left eye; Z98.41 Cataract extraction status, right eye; Z88.8 Allergy status to other drugs, medicaments and biological substances; Z98.890 Other specified postprocedural states; Z82.49 Family history of ischemic heart disease and other diseases of the circulatory system; Z80.6 Family history of leukemia; Z83.2 Family history of diseases of the blood and blood-forming organs and certain disorders involving the immune mechanism
CPT/HCPCS: 36415; 71250; 80053; 80061; 80162; 82550; 83605; 83735; 83880; 84100; 84439; 84443; 84484; 85025; 85610; 85730; 93005; 96360; 96361; 99291

== ENCOUNTER → 2019-06-17 | Outpatient (CLI) | payer MEDICARE ==
--- NOTE | 2019-06-17 11:40 | EST ---
EXERCISE STRESS AGE: 88 SEX: M HT: 5'6" WT: 160 PROTOCOL: Lexiscan Cardiolite Stress Test HEART RATE REST: 61 BLOOD PRESSURE REST: 134/62 MAXIMUM HEART RATE ACHIEVED: 77 MAXIMUM BLOOD PRESSURE: 134/62 INDICATIONS: Coronary artery disease. CLINICAL INFORMATION: Baseline EKG shows sinus rhythm with left bundle branch block. The patient was given intravenous Lexiscan as per protocol. Did not have chest pain or diagnostic ST-segment depression. CONCLUSION: 1. Inconclusive EKG part of the stress test due to left bundle branch block. 2. Cardiolite portion of the stress test will be reported separately. MMODL / IJN: [id number] /
--- NOTE | 2019-06-17 12:50 | NM ---
EXAMINATION TYPE: NM stress lexiscan cardiolite DATE OF EXAM: 06/17/2019 COMPARISON: Nuclear medicine stress Lexiscan October 25, 2017 HISTORY: Coronary artery disease, history of hypertension, tobacco use quit 30 years ago, prior heart attack, and COPD along with family history of heart attack in mom. TECHNIQUE: After the intravenous administration of 9.7 mCi Tc 99m Sestamibi - Cardiolite resting SPE CT images acquired 50 minutes post injection. The patient received 0.4mg Lexiscan, 26.3 mCi Tc 99m Sestamibi - Stress images obtained [address] injection FINDINGS: Review of stress and rest SPECT images demonstrates diminished uptake in the anteroseptal wall extend ing into the apex felt to reflect an area of old infarct. Findings similar to prior study. Gated shefali lysis shows overall estimated left ventricular ejection fraction of 45 %. IMPRESSION: Old infarct redemonstrated. No scintigraphic evidence for reversible ischemia.
== END | disposition home or self-care (01) ==
LOC: RADNMMAIN 08:45
PROVIDERS: ATTEND Family Medicine
DX: I25.2 Old myocardial infarction (principal)
CPT/HCPCS: 93017; 78452; A9500; J2785

== ENCOUNTER → 2019-07-16 | Outpatient (CLI) | payer MEDICARE | END | disposition home or self-care (01) | LOC: CPPFTMAIN 13:49 | PROVIDERS: ATTEND Family Medicine | DX: R94.2 Abnormal results of pulmonary function studies (principal); D64.9 Anemia, unspecified | CPT/HCPCS: 94060; 94726; 94729 ==

== ENCOUNTER 2020-09-10 14:18 | Observation (INO) | payer MEDICARE ==
[2020-09-10] MEDS ORDERED: IPRATROPIUM-ALBUTEROL 3 ML NEB INHALATION PRN (15:15)
[2020-09-10] MEDS: PANTOPRAZOLE 40 MG/10 ML VIAL IVP SCH (16:40)
[2020-09-10] MEDS: SODIUM CHLORIDE 0.9% 1,000 ML IV SCH (16:40)
[2020-09-10] MEDS ORDERED: NITROGLYCERIN SL TABS 0.4 MG TAB SUBLINGUAL PRN (16:44)
[2020-09-10 17:05] LABS: Glucose,Whole Blood 103 mg/dL (75-99)
[2020-09-10] MEDS: INSULIN ASPART (NovoLOG) 100 UNIT/ML VIAL SQ SCH ×2 (17:24→21:41)
[2020-09-10] MEDS: FUROSEMIDE 20 MG TAB PO SCH (17:29)
--- NOTE | 2020-09-10 19:10 | XR ---
EXAMINATION TYPE: XR chest 2V DATE OF EXAM: 09/10/2020 COMPARISON: 04/30/2018. HISTORY: Chest pain. TECHNIQUE: Frontal and lateral views of the chest are obtained. FINDINGS: There is no focal air space opacity, pleural effusion, or pneumothorax seen. The cardiac silhouette size is within normal limits. The osseous structures are intact. Left AICD seen. IMPRESSION: No acute cardiopulmonary process.
[2020-09-10 21:29] LABS: Glucose,Whole Blood 103 mg/dL (75-99)
[2020-09-10] MEDS: ISOSORBIDE MONONITRATE ER 60 MG TAB.ER.24H PO SCH (21:41)
[2020-09-10] MEDS: ASPIRIN 81 MG PO SCH (21:41)
[2020-09-10] MEDS: SENNOSIDES-DOCUSATE SODIUM 1 EACH TAB PO SCH (21:41)
[2020-09-10] MEDS: predniSONE 5 MG TAB PO SCH (21:41)
[2020-09-10] MEDS: TAMSULOSIN 0.4 MG CAP.ER.24H PO SCH (21:41)
[2020-09-10] MEDS: METOPROLOL TARTRATE 25 MG TAB PO SCH (21:41)
[2020-09-10] MEDS: MONTELUKAST 10 MG TAB PO SCH (21:41)
[2020-09-11 04:24] LABS: Albumin 4.7 g/dL (3.80-4.90); Albumin/Globulin Ratio 2.47 (1.60-3.17); Anion Gap 11.2 mmol/L (4.00-12.00); Calcium 9.2 mg/dL (8.7-10.3); Carbon Dioxide 26.8 mmol/L (21.6-31.8); Globulin 1.9 g/dL (1.6-3.3); Magnesium 2.1 mg/dL (1.5-2.4); Non-African American GFR(CKD) 66.4 (60.0-200.0); Potassium 3.9 mmol/L (3.5-5.5); Total Bilirubin 0.4 mg/dL (0.2-1.2); Total Protein 6.6 g/dL (6.2-8.2)
--- NOTE | 2020-09-11 05:39 | CT ---
EXAM: CT Angiography Chest With Intravenous Contrast CLINICAL HISTORY: high d-dimer TECHNIQUE: Axial computed tomographic angiography images of the chest with intravenous contrast. CTDI is 107.90 mGy and DLP is 395.70 mGy-cm. This CT exam was performed using one or more of the following dose reduction techniques: automated exposure control, adjustment of the mA and/or kV according to patient size, and/or use of iterative reconstruction technique. MIP reconstructed images were created and reviewed. COMPARISON: 03/20/2019 and 05/01/2018 FINDINGS: Pulmonary arteries: Main pulmonary artery measures up to 3.5 cm in diameter suggesting pulmonary hypertension. No pulmonary embolism. Aorta: Mild vascular calcifications involving the intrathoracic aorta. No thoracic aortic aneurysm. Lungs: Minimal pulmonary interstitial edema. Mild diffuse bronchiectasis. Mild bronchial wall thickening, likely reactive, although infectious versus inflammatory airways disease may also be present. A 6 mm nodule is again seen in the right upper lobe, unchanged from 05/01/2018. Pleural space: Unremarkable. No significant effusion. No pneumothorax. Heart: Unremarkable. No cardiomegaly. No significant pericardial effusion. No evidence of RV dysfunction. Mediastinum: Moderate hiatal hernia again noted. Mild reactive mediastinal and bilateral hilar lymphadenopathy, measuring up to 1.2 cm in short axis in the pretracheal region. Bones/joints: Osseous structures are unchanged. No acute fracture. No dislocation. Soft tissues: Unremarkable. Lymph nodes: See above. Tubes, lines and devices: Left-sided chest wall pacemaker is noted with lead tips in the right atrium and right ventricle. IMPRESSION: 1. No evidence of PE. 2. Main pulmonary artery measures up to 3.5 cm in diameter suggesting pulmonary hypertension. 3. Minimal pulmonary interstitial edema. 4. Mild diffuse bronchiectasis. Mild bronchial wall thickening, likely reactive, although infectious versus inflammatory airways disease may also be present. 5. A 6 mm nodule is again seen in the right upper lobe, unchanged from 05/01/2018. Fleischner Society Guidelines suggest no follow-up is necessary for patients with low or high risk of malignancy. 6. Moderate hiatal hernia again noted.
[2020-09-11] MEDS: LEVOTHYROXINE 100 MCG TAB PO SCH (06:10)
[2020-09-11 06:17] LABS: ALT 21 U/L (4-49); AST 21 U/L (17-59); African American GFR (CKD) 82 (>60 ml/min/1.73 sqM); Albumin/Globulin Ratio 1.5; Alkaline Phosphatase 68 U/L (38-126); Anion Gap 9 mmol/L; Blood Urea Nitrogen 18 mg/dL (9-20); Calcium 9.1 mg/dL (8.4-10.2); Carbon Dioxide 28 mmol/L (22-30); Chloride 103 mmol/L (98-107); Globulin 2.6 g/dL; Glucose 102 mg/dL (74-99); Non-African American GFR(CKD) 71 (>60 ml/min/1.73 sqM); Potassium 4.2 mmol/L (3.5-5.1); Sodium 140 mmol/L (137-145); Total Bilirubin 0.4 mg/dL (0.2-1.3); Total Protein 6.6 g/dL (6.3-8.2)
[2020-09-11 06:19] LABS: Basophils % (A) 0 %; Eosinophils # (A) 0.2 k/uL (0-0.7); Eosinophils % (A) 2 %; HGB 11.6 gm/dL (13.0-17.5); Lymphocytes # (A) 3.6 k/uL (1.0-4.8); Lymphocytes % (A) 31 %; MCH 29.7 pg (25.0-35.0); MCHC 33.1 g/dL (31.0-37.0); MCV 89.6 fL (80.0-100.0); Mean Platelet Volume 7.2; Monocytes # (A) 0.7 k/uL (0-1.0); Monocytes % (A) 6 %; Neutrophils % (A) 59 %; Platelet Count 259 k/uL (150-450); RDW 13.8 % (11.5-15.5); WBC 11.8 k/uL (3.8-10.6)
[2020-09-11 07:08] LABS: Glucose,Whole Blood 112 mg/dL (75-99)
[2020-09-11] MEDS: INSULIN ASPART (NovoLOG) 100 UNIT/ML VIAL SQ SCH ×4 (08:02→20:33)
[2020-09-11] MEDS: PANTOPRAZOLE 40 MG/10 ML VIAL IVP SCH (09:16)
[2020-09-11] MEDS: FINASTERIDE 5 MG TAB PO SCH (09:17)
[2020-09-11] MEDS: FUROSEMIDE 20 MG TAB PO SCH ×2 (09:17→16:58)
[2020-09-11] MEDS: ISOSORBIDE MONONITRATE ER 60 MG TAB.ER.24H PO SCH ×2 (09:17→20:32)
[2020-09-11] MEDS: DIGOXIN 125 MCG TAB PO SCH (09:17)
[2020-09-11] MEDS: METOPROLOL TARTRATE 25 MG TAB PO SCH ×3 (09:17→20:32)
[2020-09-11] MEDS: amLODIPine 5 MG TAB PO SCH (09:17)
[2020-09-11 10:55] LABS: Hemoglobin A1C 6.3 % (4.0-6.0)
[2020-09-11 11:57] LABS: Glucose,Whole Blood 103 mg/dL (75-99)
[2020-09-11] MEDS: SODIUM CHLORIDE 0.9% 1,000 ML IV SCH (13:17)
--- NOTE | 2020-09-11 14:41 | HP ---
HISTORY AND PHYSICAL This 89-year-old white female with cough, congestion, shortness of breath with extreme amount of leg swelling, worsening over the past few days. He was admitted to the hospital with near syncope, cough, congestion, shortness of breath and some atypical chest pain with large amount of edema in the legs. MEDICATIONS: 1. Norvasc 5 mg daily. 2. Aspirin 81 mg daily. 3. Lanoxin 125 mcg daily. 4. Proscar 5 mg daily. 5. Lasix 20 b.i.d. 6. DuoNeb updraft q.i.d. 7. Imdur 60 mg b.i.d. 8. Levothyroxine 100 daily. 9. Metoprolol 25 t.i.d. 10.Singulair 10 daily. 11.Nitroglycerin sublingual p.r.n. 12.Protonix 40 mg daily. 13.Prednisone 5 daily. 14.Flomax 0.4 mg daily. PAST MEDICAL HISTORY: Coronary artery disease with stents, systolic heart failure, BPH, GERD, , hypothyroidism. Test done, CAT scan of the chest shows reactive bronchiectasis possibly flaring at this time. Will start him on some IV antibiotics. Wait for Cardiology to see him and review his EKG and labs. Possibly order an echo. REVIEW OF SYSTEMS: Fourteen-point review of systems as mentioned above. PHYSICAL EXAMINATION: LUNGS: Show wheezes x4. EXTREMITIES: 2 to 3+ edema bilaterally. NEUROLOGIC: Cranial nerves intact. PSYCH: Fair mood and affect. OPHTHALMOLOGIC: Pupils equal, round, reactive to light and accommodation. ASSESSMENT: Acute shortness of breath, suspect congestive heart failure due to significant leg swelling. Start him on diuresis, updrafts, antibiotics for possible bronchiectasis. Wait for Cardiology to clear him. MMODL / IJN: [id number] /
[2020-09-11 17:46] LABS: Glucose,Whole Blood 100 mg/dL (75-99)
--- NOTE | 2020-09-11 17:54 | ECHOF ---
Referral Reason:dyspnea MEASUREMENTS -------- HEIGHT: 170.2 cm WEIGHT: 72.6 kg BP: RVIDd: 3.1 cm (< 3.3) IVSd: 1.6 cm (0.6 - 1.1) LVIDd: 3.6 cm (3.9 - 5.3) LVPWd: 1.5 cm (0.6 - 1.1) IVSs: 2.0 cm LVIDs: 2.4 cm LVPWs: 1.9 cm LA Diam: 3.4 cm (2.7 - 3.8) LAESV Index (A-L): 25.09 ml/m Ao Diam: 2.9 cm (2.0 - 3.7) AV Cusp: 2.2 cm (1.5 - 2.6) MV EXCURSION: 15.618 mm (> 18.000) MV EF SLOPE: 67 mm/s (70 - 150) EPSS: 0.6 cm MV E Jerod: 0.87 m/s MV DecT: 228 ms MV A Jerod: 1.03 m/s MV E/A Ratio: 0.84 RAP: 5.00 mmHg RVSP: 33.21 mmHg FINDINGS -------- Sinus rhythm. This was a technically adequate study. The left ventricular size is normal. There is moderate concentric left ventricular hypertrophy. O verall left ventricular systolic function is normal with, an EF between 55 - 60 %. The right ventricle is normal in size. Normal LA size by volume 22+/-6 ml/m2. The right atrium is normal in size. Interatrial and interventricular septum intact. The aortic valve is trileaflet and appears structurally normal. Mild mitral regurgitation is present. Mild tricuspid regurgitation present. There is borderline pulmonary hypertension. The right ventr icular systolic pressure, as measured by Doppler, is 33.21mmHg. The pulmonic valve was not well visualized. The aortic root size is normal. Normal inferior vena cava with normal inspiratory collapse consistent with estimated right atrial pre ssure of 5 mmHg. There is no pericardial effusion. CONCLUSIONS -------- 1. The left ventricular size is normal. 2. There is moderate concentric left ventricular hypertrophy. 3. Overall left ventricular systolic function is normal with, an EF between 55 - 60 %. 4. The aortic valve is trileaflet and appears structurally normal. 5. Mild mitral regurgitation is present. 6. Mild tricuspid regurgitation present. 7. There is borderline pulmonary hypertension. 8. The right ventricular systolic pressure, as measured by Doppler, is 33.21mmHg. 9. There is no pericardial effusion. CLERICAL ASSIGNER: Sherri Dos Santos RDCS
[2020-09-11] MEDS: ASPIRIN 81 MG PO SCH (20:32)
[2020-09-11] MEDS: SENNOSIDES-DOCUSATE SODIUM 1 EACH TAB PO SCH (20:32)
[2020-09-11] MEDS: MONTELUKAST 10 MG TAB PO SCH (20:32)
[2020-09-11 20:33] LABS: Glucose,Whole Blood 99 mg/dL (75-99)
[2020-09-11] MEDS: TAMSULOSIN 0.4 MG CAP.ER.24H PO SCH (20:33)
[2020-09-11] MEDS: predniSONE 5 MG TAB PO SCH (20:33)
[2020-09-11] MEDS ORDERED: ACETAMINOPHEN TAB 325 MG TAB PO PRN (20:37)
[2020-09-12 02:43] VITALS: PULSE 65; TEMP 97.6
[2020-09-12] MEDS: LEVOTHYROXINE 100 MCG TAB PO SCH (05:24)
[2020-09-12 06:55] VITALS: BP 117/52; RESP 18
[2020-09-12 07:00] LABS: Glucose,Whole Blood 99 mg/dL (75-99)
[2020-09-12] MEDS: INSULIN ASPART (NovoLOG) 100 UNIT/ML VIAL SQ SCH (08:25)
[2020-09-12] MEDS: METOPROLOL TARTRATE 25 MG TAB PO SCH (08:28)
[2020-09-12] MEDS: amLODIPine 5 MG TAB PO SCH (08:28)
[2020-09-12] MEDS: FINASTERIDE 5 MG TAB PO SCH (08:28)
[2020-09-12] MEDS: PANTOPRAZOLE 40 MG/10 ML VIAL IVP SCH (08:28)
[2020-09-12] MEDS: ISOSORBIDE MONONITRATE ER 60 MG TAB.ER.24H PO SCH (08:28)
[2020-09-12] MEDS: FUROSEMIDE 20 MG TAB PO SCH (08:28)
[2020-09-12] MEDS: SODIUM CHLORIDE 0.9% 1,000 ML IV SCH (08:28)
[2020-09-12] MEDS: DIGOXIN 125 MCG TAB PO SCH (08:28)
--- NOTE | 2020-09-12 08:37 | P.CRDCN ---
History of Present Illness Consult date: 09/12/20 Requesting physician: Hernán Bansal Reason for Consult (text): chest pain Chief complaint: edema History of present illness: This is a pleasant 89-year-old gentleman who follows with Dr. Man in the office. He has a history of dilated cardiomyopathy, status post AICD, hypertension, hypothyroidism, paroxysmal atrial fibrillation, chronic anemia with an episode in 2017 where his hemoglobin was 5.4 at which time his anticoagulation was discontinued history of CVA, chronic stable angina, and CAD with cardiac catheterization in 2016 showing mid LAD with moderate to heavy calcification with a 40-50% narrowing which was angiographically very similar to the previous study from 2009 and RCA and circumflex with mild diffuse disease. He apparently presented on or to his primary care physician's office for his regular checkup and complained of somewhat worsening lower extremity edema which was worsening throughout the day and improved by morning with some mildly worsening shortness of breath with exertion. Apparently his oxygen saturation was found to be somewhat low and the patient was recommended to be admitted to the hospital. Chest x-ray on admission showed no acute cardiopulmonary process. CTA of the chest showed no evidence of PE, main pulmonary artery measuring up to 3.5 cm in diameter suggesting pulmonary hypertension, minimal pulmonary interstitial edema, mild diffuse bronchiectasis, mild bronchial wall thickening likely reactive and a 6 mm nodule in the right upper lobe unchanged from 05/01/2018 as well as a moderate hiatal hernia which has been seen previously. EKG showed sinus mechanism with first-degree AV block and left bundle branch block is unchanged compared to previous. Echocardiogram with Doppler study was done this admission which showed a normal SYSTOLIC FUNCTION, MILD MR, MILD TR AND BORDERLINE HYPERTENSION WITHEVIDENCE OF SEGMENTAL WALL MOTION ABNORMALITIES. Laboratory values show white blood cell count of 11,800, hemoglobin 11.6 potassium 4.2, BUN 18 and creatinine 0.95. Troponin has been negative 1 and his NT proBNP is normal at 154. Vital signs have been stable he is afebrile. At the time of my examination the patient is resting comfortably in bed. He currently has no complaints. He feels his breathing is better. His edema has completely resolved. He has been on Lasix 20 mg by mouth twice a day which is his home dose. He is currently receiving IV antibiotics. He does complain of chronic stable angina with exertion above his normal activity level for which she takes one nitroglycerin with relief. This has been stable for quite some time and has been no change in pattern, severity, duration and has not needed to take more nitroglycerin than normal. He does have an appointment scheduled to see Dr. Man in the office in the upcoming weeks. 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 History of Any Multi-Drug Resistant Organisms: None Reported Past Surgical History: AICD, Heart Catheterization, Orthopedic Surgery, Tonsillectomy Additional Past Surgical History / Comment(s): AICD implanted in 1999 with gen changes in 2008/2017, PTCA in 1999, L knee arthroscopy/shaved cartlidge, hydrocelectomy, EGDs, colonoscopies/benign polypectomy, bilateral cataract removals Past Anesthesia/Blood Transfusion Reactions: No Reported Reaction Type of Cardiac Device: AICD Device Placement Date:: 1999 Smoking Status: Former smoker - Past Family History Mother History Unknown: Yes Family Medical History: Blood Disorder, Coronary Artery Disease (CAD) Additional Family Medical History / Comment(s): Von Willebrand Daughter(s) Family Medical History: Cancer Additional Family Medical History / Comment(s): leukemia Father History Unknown: Yes Family Medical History: Coronary Artery Disease (CAD) Additional Family Medical History / Comment(s): Father was healthy Medications and Allergies Home Medications Medication Instructions Recorded Confirmed Type Alfuzosin HCl [Uroxatral] 10 mg PO HS 03/05/14 09/10/20 History Isosorbide Mononitrate ER [Imdur] 60 mg PO BID 07/06/16 09/10/20 History Nitroglycerin Sl Tabs [Nitrostat] 0.4 mg SUBLINGUAL Q5M PRN 02/24/17 09/10/20 History metFORMIN HCL [Glucophage] 500 mg PO DAILY 07/31/17 09/10/20 History predniSONE 5 mg PO HS 04/30/18 09/10/20 History Pramipexole Di-HCl [Mirapex] 1.5 mg PO HS 03/20/19 09/10/20 History Levothyroxine Sodium [Synthroid] 100 mcg PO DAILY@0630 #30 tab 03/21/19 09/10/20 Rx Sennosides-Docusate Sodium 2 tab PO HS #60 tablet 03/21/19 09/10/20 Rx [Senokot-S] amLODIPine [Norvasc] 5 mg PO DAILY #30 tab 03/21/19 09/10/20 Rx Aspirin 81 mg PO HS 09/10/20 09/10/20 History Digoxin [Digitek] 125 mcg PO DAILY 09/10/20 09/10/20 History Dutasteride [Avodart] 0.5 mg PO DAILY 09/10/20 09/10/20 History Furosemide [Lasix] 20 mg PO BID 09/10/20 09/10/20 History Metoprolol Tartrate [Lopressor] 25 mg PO TID@0900,1400,2100 09/10/20 09/10/20 History Montelukast Sodium [Singulair] 10 mg PO HS 09/10/20 09/10/20 History Allergies Allergy/AdvReac Type Severity Reaction Status Date / Time ranolazine [From Ranexa] Allergy Severe Seizures Verified 09/10/20 16:12 Physical Exam Vitals: Vital Signs Temp Pulse Resp BP Pulse Ox 09/12/20 06:54 97.6 F 65 18 117/52 98 09/12/20 02:00 97.6 F 65 17 115/57 95 09/12/20 01:34 75 18 09/11/20 20:00 97.5 F L 69 18 137/67 99 09/11/20 14:08 97.4 F L 65 18 116/52 96 09/11/20 13:33 66 20 Intake and Output 09/11/20 09/12/20 09/12/20 22:59 06:59 14:59 Intake Total 1300 400 Balance 1300 400 Intake: Intake, IV Titration 800 400 Amount cefTRIAXone 1 gm In 800 400 Sodium Chloride 0.9% 50 ml @ 100 mls/hr IVPB Q12HR@0600,1800 KATHI Rx#: [id number] Oral 500 Other: Voiding Method Toilet Toilet # Voids 2 2 PHYSICAL EXAMINATION: This is a 89-year-old gentleman in no apparent distress at the time of my examination. VITAL SIGNS: Blood pressure 117/52, heart rate 65, respirations 18, temp 97.6F. Patient is 98 % on room air. HEENT: Head is atraumatic, normocephalic. Pupils are equal, round. Sclerae anicteric. Conjunctivae are clear. Mucous membranes of the mouth are moist. Neck is supple. There is no elevated jugular venous pressure. No carotid bruit is heard. CHEST EXAMINATION: Clear to auscultation bilaterally. No wheezes rales or rhonchi. Respirations even and nonlabored. HEART EXAMINATION: Heart regular, positive S1 and S2. No S3. No S4 with a systolic murmur. ABDOMEN: Soft, nontender. Bowel sounds are heard. No organomegaly noted. EXTREMITIES: 2+ peripheral pulses with no evidence of peripheral edema and no calf tenderness noted. NEUROLOGIC EXAMINATION: Patient is awake, alert and oriented x3. Results 09/11/20 05:31 09/11/20 05:31 Current Medications Generic Name Dose Route Start Last Admin Trade Name Freq PRN Reason Stop Dose Admin Acetaminophen 650 mg 09/11/20 20:37 09/11/20 20:44 Acetaminophen Tab 325 Mg Tab PO 650 mg Q6HR PRN Administration Fever and/ or Pain Albuterol/Ipratropium 3 ml 09/10/20 15:15 Ipratropium-Albuterol 3 Ml Neb INHALATION RT-QID PRN Shortness Of Breath Or Wheezing Amlodipine Besylate 5 mg 09/11/20 09:00 09/11/20 09:17 Amlodipine 5 Mg Tab PO 5 mg DAILY KATHI Administration Aspirin 81 mg 09/10/20 21:00 09/11/20 20:32 Aspirin 81 Mg PO 81 mg HS KATHI Administration Digoxin 125 mcg 09/11/20 09:00 09/11/20 09:17 Digoxin 125 Mcg Tab PO 125 mcg DAILY KATHI Administration Finasteride 5 mg 09/11/20 09:00 09/11/20 09:17 Finasteride 5 Mg Tab PO 5 mg DAILY KATHI Administration Furosemide 20 mg 09/10/20 17:00 09/11/20 16:58 Furosemide 20 Mg Tab PO 20 mg BID@0900,1600 KATHI Administration Sodium Chloride 1,000 mls @ 50 mls/hr 09/10/20 15:15 09/11/20 13:17 Saline 0.9% IV 50 mls/hr .Q20H KATHI Administration Ceftriaxone Sodium 1 gm/ 50 mls @ 100 mls/hr 09/11/20 17:00 09/12/20 05:24 Sodium Chloride IVPB 100 mls/hr Q12HR@0600,1800 KATHI Administration Insulin Aspart 0 unit 09/10/20 17:30 09/11/20 20:33 Insulin Aspart (Novolog) 100 Unit/Ml Vial SQ Not Given ACHS [facility] Protocol Isosorbide Mononitrate 60 mg 09/10/20 21:00 09/11/20 20:32 Isosorbide Mononitrate Er 60 Mg Tab.Er.24h PO 60 mg BID KATHI Administration Levothyroxine Sodium 100 mcg 09/11/20 06:30 09/12/20 05:24 Levothyroxine 100 Mcg Tab PO 100 mcg DAILY@0630 KATHI Administration Metoprolol Tartrate 25 mg 09/10/20 21:00 09/11/20 20:32 Metoprolol Tartrate 25 Mg Tab PO 25 mg TID@0900,1400,2100 KATHI Administration Montelukast Sodium 10 mg 09/10/20 21:00 09/11/20 20:32 Montelukast 10 Mg Tab PO 10 mg HS KATHI Administration Nitroglycerin 0.4 mg 09/10/20 16:44 Nitroglycerin Sl Tabs 0.4 Mg Tab SUBLINGUAL Q5M PRN Chest Pain Pantoprazole Sodium 40 mg 09/10/20 15:15 09/11/20 09:16 Pantoprazole 40 Mg/10 Ml Vial IVP 40 mg DAILY KATHI Administration Prednisone 5 mg 09/10/20 21:00 09/11/20 20:33 Prednisone 5 Mg Tab PO 5 mg HS KATHI Administration Senna/Docusate Sodium 2 each 09/10/20 21:00 09/11/20 20:32 Sennosides-Docusate Sodium 1 Each Tab PO 2 each HS KATHI Administration Tamsulosin HCl 0.4 mg 09/10/20 21:00 09/11/20 20:33 Tamsulosin 0.4 Mg Cap.Er.24h PO 0.4 mg HS KATHI Administration Intake and Output 09/11/20 09/12/20 09/12/20 22:59 06:59 14:59 Intake Total 1300 400 Balance 1300 400 Intake: Intake, IV Titration 800 400 Amount cefTRIAXone 1 gm In 800 400 Sodium Chloride 0.9% 50 ml @ 100 mls/hr IVPB Q12HR@0600,1800 KATHI Rx#: [id number] Oral 500 Other: Voiding Method Toilet Toilet # Voids 2 2 09/11/20 05:31 09/11/20 05:31 Assessment and Plan Assessment: #1 mild worsening in shortness of breath with evidence of mild diffuse bronchiectasis and bronchial wall thickening and CTA which is likely reactive, currently on IV antibiotics #2 history of dilated cardiomyopathy with most recent echocardiogram showing normal LV systolic function, patient appears to be euvolemic with a normal anterior probe BNP level, no signs of acute heart failure #3 chronic stable angina #4 CAD #5 hypertension #6 hyperlipidemia #7 paroxysmal atrial fibrillation not anticoagulated secondary to history of significant anemia with a hemoglobin of 5.4 in 2017 Plan: From cardiology's perspective medications were reviewed we will continue the same. From our standpoint there is no need for further inpatient cardiac workup at this time. The patient has a an upcoming appointment with Dr. Man he will keep this appointment and further recommendations will be made at that time. ATMOSPHERIC DRIER TENDER note has been reviewed, I agree with a documented findings and plan of care. Patient was seen and examined.
--- NOTE | 2020-09-12 13:55 | DS ---
DISCHARGE SUMMARY Condition stable. Prognosis guarded. Ambulate as tolerated. DISCHARGE DIAGNOSIS: 1. Acute bronchiectasis. 2. Chronic obstructive pulmonary disease exacerbation. 3. Coronary artery disease. 4. Cardiomyopathy. 5. Anemia. 6. Chronic constipation. 7. Hypothyroidism. 8. Hypertension. 9. Diabetes mellitus. MEDICATIONS: To be sent home on doxycycline 100 b.i.d. for 10 days for acute bronchiectasis, Uroxatral 10 mg daily, Imdur 60 mg b.i.d., nitroglycerin sublingual b.i.d., metformin 500 daily, prednisone 5 daily, Mirapex 1.5 q.h.s., Norvasc 5 mg daily, Senokot 100 b.i.d., Synthroid 100 mcg daily, Lopressor 25 t.i.d., aspirin 81 mg daily, Digitek 125 mcg daily, Avodart 0.5 mg daily, Lasix 20 mg b.i.d., Singulair 10 mg daily. HOSPITAL COURSE: The patient came in with near-syncope, atypical chest pain, shortness of breath. Was found to have acute bronchiectasis on CT scan. Cardiology saw him and cleared him for heart disease. Echo showed decent report per Cardiology at which time, they discharged him home to follow up with the potato sorter as an outpatient. Continue with antibiotics for bronchiectasis. He was ruled out for myocardial infarction. Ejection fraction is 55-60%, which is normal. MMODL / IJN: [id number] /
[2020-09-12] MEDS ORDERED: DOXYCYCLINE 100 MG CAP PO SCH (21:00)
== END 2020-09-12 12:30 | disposition home or self-care (01) ==
LOC: 6NMEDSUR 14:35 → OBSVTOIN 15:10 → INTOOBSV 15:10 → UNDODISIN 09-12 12:30
PROVIDERS: ADMIT Family Medicine; ATTEND Family Medicine
DX: J47.9 Bronchiectasis, uncomplicated (principal); D64.9 Anemia, unspecified; K59.09 Other constipation; E03.9 Hypothyroidism, unspecified; I11.0 Hypertensive heart disease with heart failure; E11.9 Type 2 diabetes mellitus without complications; K21.9 Gastro-esophageal reflux disease without esophagitis; N40.0 Benign prostatic hyperplasia without lower urinary tract symptoms; I48.0 Paroxysmal atrial fibrillation; E78.5 Hyperlipidemia, unspecified; G47.33 Obstructive sleep apnea (adult) (pediatric); H40.9 Unspecified glaucoma; Z87.09 Personal history of other diseases of the respiratory system; H35.30 Unspecified macular degeneration; I42.0 Dilated cardiomyopathy; I25.118 Atherosclerotic heart disease of native coronary artery with other forms of angina pectoris; I44.0 Atrioventricular block, first degree; I44.7 Left bundle-branch block, unspecified; Z79.899 Other long term (current) drug therapy; Z79.82 Long term (current) use of aspirin; Z79.890 Hormone replacement therapy; Z79.4 Long term (current) use of insulin; Z95.5 Presence of coronary angioplasty implant and graft; Z95.810 Presence of automatic (implantable) cardiac defibrillator; Z86.73 Personal history of transient ischemic attack (TIA), and cerebral infarction without residual deficits; Z87.19 Personal history of other diseases of the digestive system; Z87.01 Personal history of pneumonia (recurrent); Z87.891 Personal history of nicotine dependence; Z88.8 Allergy status to other drugs, medicaments and biological substances; Z82.49 Family history of ischemic heart disease and other diseases of the circulatory system; Z83.2 Family history of diseases of the blood and blood-forming organs and certain disorders involving the immune mechanism; Z80.6 Family history of leukemia
CPT/HCPCS: 96376 ×2; 96365; 96366; 96375; 93005; 93306; 85379; 83880 ×2; 80053 ×2; 83735; 84484; 85025; 83036; 71046; 71275; G0379; G0378 ×3; S0138 ×2; J0696 ×2; J7512 ×2; C9113 ×3; Q9967

== ENCOUNTER → 2021-04-26 | Outpatient (CLI) | payer MEDICARE ==
[2021-04-27 13:10] LABS: African American GFR (CKD) 56.1 (60.0-200.0); BUN/Creat Ratio 16.54 Ratio (12.00-20.00); Blood Urea Nitrogen 21.5 mg/dL (9.0-27.0); Calcium 8.8 mg/dL (8.7-10.3); Magnesium 2.3 mg/dL (1.5-2.4); Non-African American GFR(CKD) 48.4 (60.0-200.0); Potassium 4.6 mmol/L (3.5-5.5)
== END | disposition home or self-care (01) ==
LOC: LABWHC1 13:17
PROVIDERS: ATTEND Internal Medicine Cardiovascular Disease
DX: I50.9 Heart failure, unspecified (principal)
CPT/HCPCS: 36415; 80048; 83735